=== PATIENT | male | born 1945 | race American Indian/Alaskan Native ===

== ENCOUNTER 2016-10-29 17:10 | Inpatient (IN) | payer MEDICARE ==
[2016-10-29 18:13] LABS: Basophils % (Auto) 1.1 % (0.0-1.8); Eosinophils % (Auto) 1.1 % (0.0-4.3); Hematocrit 43.7 % (35.5-45.6); Hemoglobin 14.3 gm/dl (11.8-15.2); Mean Corpuscular HGB Conc 33 % (32-34); Mean Corpuscular Hemoglobin 28 pg (28-32); Mean Corpuscular Volume 86 fl (84-94); Platelet Count 153 K/mm3 (140-440); Red Blood Count 5.08 M/mm3 (3.65-5.03); Red Cell Distribution Width 16.2 % (13.2-15.2); White Blood Count 6.3 K/mm3 (4.5-11.0)
[2016-10-29 18:36] LABS: Anion Gap 19 mmol/L; Blood Urea Nitrogen 21 mg/dL (9-20); Calcium 9.3 mg/dL (8.4-10.2); Carbon Dioxide 27 mmol/L (22-30); Chloride 104.9 mmol/L (98-107); Glucose 120 mg/dL (75-100); Potassium 3.8 mmol/L (3.6-5.0); Sodium 147 mmol/L (137-145)
[2016-10-29] MEDS ORDERED: LASIX IV ONE (18:42)
[2016-10-29] MEDS ORDERED: DUONEB 0.5 MG-3 MG/3 ML SOLN IH ONE (18:42)
[2016-10-29] MEDS ORDERED: BABY ASPIRIN PO ONE (18:43)
--- NOTE | 2016-10-29 18:45 | Emergency Department Report ---
HPI - General Chief Complaint: Dyspnea/Respdistress Time Seen by Provider: 10/29/16 17:47 - HPI HPI: This is a 71-year-old Afro-K[place] male who presents to the emergency department by EMS from home with complaint of a one-week history of shortness of breath. The patient has a history of CHF, hypertension, remote prostate cancer and pancreatitis. He has a primary care doctor but has not seen them regarding the symptoms. He does not have a stars analytical lead. He is a former smoker. He went to [facility] a few days ago and was advised to double up on his Lasix, which she has been doing without any relief. He has some mild generalized chest discomfort. He denies any fever, nausea, vomiting, back pain. No recent travel or sick contacts at home. ED Past Medical Hx - Past Medical History Previous Medical History?: Yes Hx Hypertension: Yes () Hx Heart Attack/AMI: No Hx Congestive Heart Failure: Yes Hx GERD: Yes Hx of Cancer: Yes (prostate) Hx Arthritis: Yes Hx Psychiatric Treatment: Yes (schizophrenia) Hx HIV: No Additional medical history: pancreatitis - Surgical History Past Surgical History?: Yes Hx Cholecystectomy: Yes (2010) Additional Surgical History: cardiac cath 2014. bladder surgery - Social History Smoking Status: Former Smoker Substance Use Type: None ED Review of Systems ROS: Stated complaint: RHONDA Other details as noted in HPI Comment: All other systems reviewed and negative Constitutional: denies: chills, fever Eyes: denies: eye pain, eye discharge, vision change ENT: denies: ear pain, throat pain Respiratory: cough, shortness of breath Cardiovascular: chest pain. denies: edema Gastrointestinal: denies: abdominal pain, nausea, diarrhea Genitourinary: denies: urgency, dysuria Musculoskeletal: denies: back pain, joint swelling, arthralgia Skin: denies: rash, lesions Neurological: denies: headache, weakness, paresthesias Physical Exam - Physical Exam Vital Signs: Vital Signs 10/29/16 17:36 Temperature 97.5 F L Pulse Rate 121 H Respiratory 28 H Rate Blood Pressure 130/99 O2 Sat by Pulse 95 Oximetry Physical Exam: GENERAL: The patient is well-developed well-nourished. HEENT: Normocephalic. Atraumatic. Extraocular motions are intact. Patient has moist mucous membranes. Pupils equal reactive to light bilaterally. NECK: Supple. Trachea is midline. CHEST/LUNGS: Clear to auscultation. There is some tachypnea but no accessory muscle use. There is no respiratory distress noted. HEART/CARDIOVASCULAR: Regular. There is mild tachycardia. There is no gallop rub or murmur. ABDOMEN: Abdomen is soft, nontender. Patient has normal bowel sounds. There is no abdominal distention. SKIN: Skin is warm and dry. NEURO: The patient is awake, alert, and oriented. The patient is cooperative. The patient has no focal neurologic deficits. The patient has normal speech. MUSCULOSKELETAL: There is no tenderness or deformity. There is no limitation range of motion. There is no evidence of acute injury. ED Course Vital Signs 10/29/16 17:36 Temperature 97.5 F L Pulse Rate 121 H Respiratory 28 H Rate Blood Pressure 130/99 O2 Sat by Pulse 95 Oximetry ED Medical Decision Making - Lab Data Result diagrams: 10/29/16 17:51 10/29/16 17:51 - EKG Data -: EKG Interpreted by Mt EKG shows normal: sinus rhythm, axis (left axis deviation), intervals, QRS complexes (left anterior fascicular block, LVH with mild QRS widening, Q waves to the septal leads), ST-T waves (intermittent T-wave inversions to the lateral leads) Rate: tachycardia (mild at 103 bpm) - EKG Data When compared to previous EKG there are: changes noted (previous EKG from does not show the T-wave inversions in the lateral leads) Interpretation: other (sinus tachycardia, left axis deviation, left anterior fascicular block, LVH, Q waves in the septal leads, T-wave inversions to the lateral leads) - Radiology Data Radiology results: image reviewed interpreted by me: Chest x-ray shows some cardiomegaly and pulmonary vascular congestion. No obvious pneumonia. No pneumothorax. - Medical Decision Making 71-year-old male presents the emergency department with complaint of continued shortness of breath over the past few days to week. He has a history of CHF. Chest x-ray shows some pulmonary vascular congestion. He has coarse breath sounds with some tachypnea and mild tachycardia. D-dimer was negative. First troponin negative. BNP is very elevated concerning for CHF. He was given some Lasix to start diuresis. Aspirin to protect his heart. He'll be admitted to the hospital for further evaluation and has been accepted for admission by the hospitalist, Dr. Schneider. - Differential Diagnosis CHF, ID, PE, pneumonia Critical Care Time: No Critical care attestation.: If time is entered above; I have spent that time in minutes in the direct care of this critically ill patient, excluding procedure time. ED Disposition Clinical Impression: Atypical chest pain Dyspnea Qualifiers: Dyspnea type: shortness of breath Qualified Code(s): R06.02 - Shortness of breath CHF (congestive heart failure) Qualifiers: Congestive heart failure type: unspecified congestive heart failure type Congestive heart failure chronicity: acute on chronic Qualified Code(s): I50.9 - Heart failure, unspecified Disposition: OP ADMITTED IP TO THIS HOSP Is pt being admited?: Yes Condition: Stable Instructions: Chest Pain (ED) Referrals: PRIMARY CARE, [Primary Care Provider] - 3-5 Days Time of Disposition: 20:56
--- NOTE | 2016-10-29 19:45 | XRay Report ---
FINAL REPORT EXAM: XR CHEST ROUTINE 2V HISTORY: Shortness of breath TECHNIQUE: 2 views of the chest. PRIORS: None. FINDINGS: There is moderate cardiomegaly. The pulmonary vascularity appears normal. The lungs are clear. There is no evidence of pleural effusion. The bones and soft tissues are unremarkable. IMPRESSION: Cardiomegaly. No evidence of acute CHF
--- NOTE | 2016-10-29 20:10 | History and Physical Report ---
History of Present Illness Chief complaint: I cant breathe History of present illness: 71 YO Male with HTN, CHF,GERD, CaP, OA, Schizophrenia, Pancreatitis presents to ED for evaluation. Pt states that he has been experiencing shortness of breath for the past week, with worsening symptoms over the past 1 day. Pt acknowledges orthopnea, PND. Pt states that he has increased his lasix dose without relief. Pt denies fever, chills, CP, Palpitations, NVD, Syncope, prolonged travel/ immobility, individual/family history of DVT/PE, productive cough, leg swelling , calf pain, trauma, or recent ill contacts. Past History Past Medical History: arthritis, CAD, GERD, heart failure, hypertension Past Surgical History: cholecystectomy, Other (cath, bladdder) Social history: single. denies: smoking, alcohol abuse, prescription drug abuse Family history: no significant family history, diabetes, hypertension Medications and Allergies Allergies Allergy/AdvReac Type Severity Reaction Status Date / Time Penicillins Allergy Severe Hives Verified 11/21/14 10:42 Home Medications Medication Instructions Recorded Confirmed Last Taken Type ARIPiprazole [Abilify TAB] 20 mg PO DAILY 10/29/16 10/29/16 10/29/16 History Aspirin 81 mg PO QDAY 10/29/16 10/29/16 10/29/16 History Carvedilol [Coreg] 3.125 mg PO BID 10/29/16 10/29/16 10/29/16 History Furosemide [Lasix] 20 mg PO QDAY 10/29/16 10/29/16 10/29/16 History Lisinopril [Zestril] 5 mg PO QDAY 10/29/16 10/29/16 10/29/16 History Review of Systems All systems: negative Cardiovascular: orthopnea, paroxysmal nocturnal dyspnea Respiratory: shortness of breath Exam - Constitutional Vitals: Temp Pulse Resp BP Pulse Ox 97.5 F L 115 H 18 117/91 97 10/29/16 17:36 10/29/16 19:59 10/29/16 19:59 10/29/16 19:00 10/29/16 19:00 General appearance: Present: mild distress, cachectic - EENT Eyes: Present: PERRL ENT: hearing intact, clear oral mucosa - Neck Neck: Present: supple, normal ROM - Respiratory Respiratory effort: normal Respiratory: bilateral: CTA - Cardiovascular Heart Sounds: Present: S1 & S2. Absent: rub, click - Extremities Extremities: pulses symmetrical, No edema Peripheral Pulses: within normal limits - Abdominal General gastrointestinal: Present: soft, non-tender, non-distended, normal bowel sounds Male genitourinary: Present: normal - Integumentary Integumentary: Present: clear, warm, dry - Musculoskeletal Musculoskeletal: gait normal, strength equal bilaterally - Psychiatric Psychiatric: appropriate mood/affect, intact judgment & insight - Neurologic Neurologic: CNII-XII intact, moves all extremities Results - Labs CBC & Chem 7: 10/29/16 17:51 10/29/16 17:51 Labs: Abnormal lab results 10/29/16 10/29/16 Range/Units 17:51 17:51 RBC 5.08 H (3.65-5.03) M/mm3 RDW 16.2 H (13.2-15.2) % [place] % (Auto) 9.6 H (0.0-7.3) % Lymph # 1.0 L (1.2-5.4) K/mm3 Seg Neutrophils % 71.6 H (40.0-70.0) % Sodium 147 H (137-145) mmol/L BUN 21 H (9-20) mg/dL Glucose 120 H (75-100) mg/dL NT-Pro-B Natriuret Pep 86570 H (0-900) pg/mL Assessment and Plan - Patient Problems (1) CHF (congestive heart failure) Current Visit: Yes Status: Acute Qualifiers: Congestive heart failure type: unspecified congestive heart failure type Congestive heart failure chronicity: acute on chronic Qualified Code(s): I50.9 - Heart failure, unspecified Plan to address problem: CHF Protocol: Admit to telemetry, supportive care, fluid restriction, daily weight, monitor uop q shift, diuretics, stephanie inhibitor, b denis. (2) Acute respiratory failure Current Visit: Yes Status: Acute Qualifiers: Respiratory failure complication: hypoxia Qualified Code(s): J96.01 - Acute respiratory failure with hypoxia Plan to address problem: Supplemental oxygen, nebs, aspiration precautions, supplemental oxygen, supportive care, pulmonary toilet, (3) Malnutrition Current Visit: Yes Status: Chronic Plan to address problem: Moderate: encourage oral intake (4) Hypertension Current Visit: No Status: Acute Qualifiers: Hypertension type: H Plan to address problem: Monitor bp q shift, continue current therapy. (5) DVT prophylaxis Current Visit: Yes Status: Acute
[2016-10-29] MEDS ORDERED: MILK OF MAGNESIA PO PRN (20:49)
[2016-10-29] MEDS ORDERED: DUONEB 0.5 MG-3 MG/3 ML SOLN IH PRN (20:49)
[2016-10-29] MEDS ORDERED: DULCOLAX PR PRN (20:49)
[2016-10-29] MEDS ORDERED: TYLENOL PO PRN (20:49)
[2016-10-29] MEDS ORDERED: ZOFRAN IV PRN (20:49)
[2016-10-29] MEDS ORDERED: PROVENTIL IH PRN (21:06)
[2016-10-30] MEDS: LASIX IV SCH ×2 (05:36→17:53)
--- NOTE | 2016-10-30 10:36 | Admit Criteria Form ---
Admission Criteria Documentation: HEART FAILURE: COMMON COMPLICATIONS Clinical Indications for Inpatient Care (Place 'X' for any and all applicable criteria): Ongoing inpatient care may be indicated for heart failure with ANY ONE of the following (1)(2)(3)(4)(5): [ ]I. Ongoing need for care for primary condition requiring frequent therapy adjustments because of changes in cardiac function (eg, drug dosage changes for drugs that are renally metabolized) [ ]II. New-onset heart failure [ ]III. Heart failure with decreased urine output not responsive to attempts to optimize volume status [ ]IV. Acute cardiac ischemia causing or associated with failure [X ]V. Complications of heart failure, including ANY ONE of the following: [ ]a) Pericardial effusion [ ]b) Symptomatic pleural effusion [ ]c) O2 saturation <90% or PO2 < 60 mm Hg (8.0 kPa) on room air or require baseline supplemental O2 [ X]d) Tachypnea [ X]e) Dyspnea [ ]f) Syncope [ ]g) Change in mental status [ ]h) Acute renal insufficiency that is severe (reduction of more than 50% in estimated glomerular filtration rate from baseline) or progressive reduction of more than 25% in estimated glomerular filtration rate from baseline, with creatinine continuing to rise) [ ]i) Hemodynamic instability [ ]j) Anasarca [ ]k) Clinically significant metabolic abnormalities due to heart failure (eg, new-onset metabolic acidosis) Extended stay beyond goal length of stay for primary condition may be needed until ALL of the following are present(1)(3): [ ]a) Stable and effective diuretic regimen established (or patient on stable dialysis regimen if in chronic renal failure) [ ]b) Breathing comfortably at rest [ ]c) Saturation of arterial oxygen greater than 90% or at acceptable baseline [ ]d) Pulmonary edema absent or improved [ ]e) Hemodynamic stability [ ]f) Volume status acceptable on oral medication [ ]g) Peripheral or sacral edema absent or improved [ ]h) Renal function stable and manageable at a lower level of care [ ]i) Complications (eg, pleural effusion) resolved or manageable at a lower level of care [ ]j) Patient or caregiver has received written discharge instructions or educational material addressing activity level, diet, discharge medications, follow-up appointment, weight monitoring, and what to do if symptoms worsen The original [employer] content created by [employer] has been revised. The portions of the content which have been revised are identified through the use of italic text or in bold, and [facility] has neither reviewed nor approved the modified material.All other unmodified content is copyright [facility]. Please see references footnoted in the original [facility] edition 2016 Admission Criteria Met: Yes
--- NOTE | 2016-10-30 15:35 | Progress Note ---
Assessment and Plan Assessment and plan: 71 years old male with CAD, HTN, CHF, admitted for worsening shortness of breath , orthopnea 1. Acute on chronic systolic CHF exacerbation Symptoms of heart failure Chest x-ray with cardiomegaly Will obtain echocardiogram to assess LV function Diuresis started with IV Lasix Add beta denis and RE inhibitor 2. Acute hypoxic respiratory failure Due to CHF exacerbation Diuresing, supplemental oxygen as needed 3. Hypernatremia Mild, monitor closely as he is on IV diuretic 4. CAD On aspirin, BB and ACEI Check lipid profile and consider adding statin 5. HTN Resume Coreg and lisinopril; continue Lasix Monitor BP and adjust regimen as needed 6. Psychiatric disorder Resume Abilify 7. H/o prostate cancer Diagnosed and treated 8 years ago Followed by urology 8. DVT/GI prophylaxis History Interval history: Shortness of breath improved, feeling better Hospitalist Physical - Constitutional Vitals: Temp Pulse Resp BP Pulse Ox 97.8 F 89 16 110/81 99 10/30/16 13:24 10/30/16 13:24 10/30/16 13:24 10/30/16 13:24 10/30/16 13:24 General appearance: Present: no acute distress - EENT Eyes: Present: PERRL, EOM intact. Absent: scleral icterus, conjunctival injection - Neck Neck: Present: supple, normal ROM. Absent: masses or JVD - Respiratory Respiratory effort: normal Respiratory: bilateral: CTA, negative: rhonchi, wheezing - Cardiovascular Rhythm: regular Heart Sounds: Present: S1 & S2. Absent: systolic murmur - Extremities Extremities: no ischemia - Abdominal General gastrointestinal: soft, non-tender, non-distended, normal bowel sounds - Psychiatric Psychiatric: appropriate mood/affect, intact judgment & insight, cooperative - Neurologic Neurologic: CNII-XII intact, no focal deficits Results - Labs CBC & Chem 7: 10/29/16 17:51 10/29/16 17:51 Labs: Laboratory Last Values WBC 6.3 K/mm3 (4.5-11.0) 10/29/16 17:51 RBC 5.08 M/mm3 (3.65-5.03) H 10/29/16 17:51 Hgb 14.3 gm/dl (11.8-15.2) 10/29/16 17:51 Hct 43.7 % (35.5-45.6) 10/29/16 17:51 MCV 86 fl (84-94) 10/29/16 17:51 MCH 28 pg (28-32) 10/29/16 17:51 MCHC 33 % (32-34) 10/29/16 17:51 RDW 16.2 % (13.2-15.2) H 10/29/16 17:51 Plt Count 153 K/mm3 (140-440) 10/29/16 17:51 Lymph % (Auto) 16.6 % (13.4-35.0) 10/29/16 17:51 [place] % (Auto) 9.6 % (0.0-7.3) H 10/29/16 17:51 Eos % (Auto) 1.1 % (0.0-4.3) 10/29/16 17:51 Baso % (Auto) 1.1 % (0.0-1.8) 10/29/16 17:51 Lymph # 1.0 K/mm3 (1.2-5.4) L 10/29/16 17:51 [place] # 0.6 K/mm3 (0.0-0.8) 10/29/16 17:51 Eos # 0.1 K/mm3 (0.0-0.4) 10/29/16 17:51 Baso # 0.1 K/mm3 (0.0-0.1) 10/29/16 17:51 Seg Neutrophils % 71.6 % (40.0-70.0) H 10/29/16 17:51 Seg Neutrophils # 4.5 K/mm3 (1.8-7.7) 10/29/16 17:51 D-Dimer 200.30 ng/mlDDU (0-234) 10/29/16 21:36 Sodium 147 mmol/L (137-145) H 10/29/16 17:51 Potassium 3.8 mmol/L (3.6-5.0) 10/29/16 17:51 Chloride 104.9 mmol/L (98-107) 10/29/16 17:51 Carbon Dioxide 27 mmol/L (22-30) 10/29/16 17:51 Anion Gap 19 mmol/L 10/29/16 17:51 BUN 21 mg/dL (9-20) H 10/29/16 17:51 Creatinine 1.0 mg/dL (0.8-1.5) 10/29/16 17:51 Estimated GFR > 60 ml/min 10/29/16 17:51 BUN/Creatinine Ratio 21.00 % 10/29/16 17:51 Glucose 120 mg/dL (75-100) H 10/29/16 17:51 Calcium 9.3 mg/dL (8.4-10.2) 10/29/16 17:51 Troponin T < 0.010 ng/mL (0.00-0.029) 10/29/16 17:51 NT-Pro-B Natriuret Pep 76198 pg/mL (0-900) H 10/29/16 17:51 - Imaging and Cardiology Chest x-ray: image reviewed (cardiomegaly)
[2016-10-30 20:33] LABS: Bilirubin,Urine NEG (Negative); Blood,Urine NEG (Negative); Ketones,Urine NEG (Negative); Leukocyte Esterase,Urine NEG (Negative); Mucus,Urine FEW /HPF; Nitrite,Urine NEG (Negative); Protein,Urine <15 mg/dL mg/dL (Negative); Urobilinogen,Urine < 2.0 mg/dL (<2.0)
[2016-10-30 20:44] LABS: WBC,Urine < 1.0 /HPF (0.0-6.0)
[2016-10-30] MEDS: COREG PO SCH (21:23)
[2016-10-31] MEDS ORDERED: NACL 0.9% 250ML 250 ML IV ONE (00:52)
[2016-10-31] MEDS: LASIX IV SCH (06:41)
[2016-10-31 06:58] LABS: Anion Gap 16 mmol/L; Blood Urea Nitrogen 20 mg/dL (9-20); Calcium 8.4 mg/dL (8.4-10.2); Carbon Dioxide 28 mmol/L (22-30); Chloride 103.6 mmol/L (98-107); Glucose 89 mg/dL (75-100); Potassium 3.9 mmol/L (3.6-5.0); Sodium 144 mmol/L (137-145)
[2016-10-31] MEDS ORDERED: ARIPIPRAZOLE 20 MG PO SCH (10:00)
[2016-10-31] MEDS: COREG PO SCH ×2 (10:38→22:33)
[2016-10-31] MEDS: ZESTRIL PO SCH (10:40)
[2016-10-31] MEDS: ABILIFY PO SCH (10:50)
--- NOTE | 2016-10-31 17:40 | Progress Note ---
Assessment and Plan Assessment and plan: 71 years old male with CAD, HTN, CHF, admitted for worsening shortness of breath , orthopnea 1. Acute on chronic combined heart failure Chest x-ray with cardiomegaly Echocardiogram showed severely dilated cardiomyopathy with EF 15-20% Started on beta denis, RE inhibitor and diuretic but not given today due to hypotension Will consult cardiology as he needs further cardiac workup and possible AICD/ defibrillator/LifeVest 2. Acute hypoxic respiratory failure Due to CHF exacerbation Diuresing as tolerated, supplemental oxygen 3. Hypernatremia Mild, resolved 4. CAD On aspirin, BB and ACEI Check lipid profile and consider adding statin 5. HTN On coreg, lisinopril, lasix for heart failure, but now on hold due to hypotension 6. Psychiatric disorder Continue Abilify 7. H/o prostate cancer Diagnosed and treated 8 years ago Followed by urology 8. DVT prophylaxis Lovenox History Interval history: no SOB at rest, doing well, no complaints Hospitalist Physical - Constitutional Vitals: Temp Pulse Resp BP Pulse Ox 97.9 F 89 16 84/64 99 10/31/16 16:48 10/31/16 16:48 10/31/16 16:48 10/31/16 16:48 10/31/16 16:48 General appearance: Present: no acute distress - EENT Eyes: Present: PERRL, EOM intact. Absent: scleral icterus, conjunctival injection - Neck Neck: Present: supple, normal ROM. Absent: masses or JVD - Respiratory Respiratory effort: normal Respiratory: bilateral: CTA, negative: rhonchi, wheezing - Cardiovascular Rhythm: regular Heart Sounds: Present: S1 & S2, systolic murmur - Extremities Extremities: no ischemia - Abdominal General gastrointestinal: soft, non-tender, non-distended, normal bowel sounds - Integumentary Integumentary: Present: warm, dry. Absent: jaundice, rash - Psychiatric Psychiatric: cooperative - Neurologic Neurologic: CNII-XII intact, no focal deficits Results - Labs CBC & Chem 7: 10/29/16 17:51 10/31/16 05:46 Labs: Laboratory Last Values WBC 6.3 K/mm3 (4.5-11.0) 10/29/16 17:51 RBC 5.08 M/mm3 (3.65-5.03) H 10/29/16 17:51 Hgb 14.3 gm/dl (11.8-15.2) 10/29/16 17:51 Hct 43.7 % (35.5-45.6) 10/29/16 17:51 MCV 86 fl (84-94) 10/29/16 17:51 MCH 28 pg (28-32) 10/29/16 17:51 MCHC 33 % (32-34) 10/29/16 17:51 RDW 16.2 % (13.2-15.2) H 10/29/16 17:51 Plt Count 153 K/mm3 (140-440) 10/29/16 17:51 Lymph % (Auto) 16.6 % (13.4-35.0) 10/29/16 17:51 [place] % (Auto) 9.6 % (0.0-7.3) H 10/29/16 17:51 Eos % (Auto) 1.1 % (0.0-4.3) 10/29/16 17:51 Baso % (Auto) 1.1 % (0.0-1.8) 10/29/16 17:51 Lymph # 1.0 K/mm3 (1.2-5.4) L 10/29/16 17:51 [place] # 0.6 K/mm3 (0.0-0.8) 10/29/16 17:51 Eos # 0.1 K/mm3 (0.0-0.4) 10/29/16 17:51 Baso # 0.1 K/mm3 (0.0-0.1) 10/29/16 17:51 Seg Neutrophils % 71.6 % (40.0-70.0) H 10/29/16 17:51 Seg Neutrophils # 4.5 K/mm3 (1.8-7.7) 10/29/16 17:51 D-Dimer 200.30 ng/mlDDU (0-234) 10/29/16 21:36 Sodium 144 mmol/L (137-145) 10/31/16 05:46 Potassium 3.9 mmol/L (3.6-5.0) 10/31/16 05:46 Chloride 103.6 mmol/L (98-107) 10/31/16 05:46 Carbon Dioxide 28 mmol/L (22-30) 10/31/16 05:46 Anion Gap 16 mmol/L 10/31/16 05:46 BUN 20 mg/dL (9-20) 10/31/16 05:46 Creatinine 1.0 mg/dL (0.8-1.5) 10/31/16 05:46 Estimated GFR > 60 ml/min 10/31/16 05:46 BUN/Creatinine Ratio 20.00 % 10/31/16 05:46 Glucose 89 mg/dL (75-100) 10/31/16 05:46 Calcium 8.4 mg/dL (8.4-10.2) 10/31/16 05:46 Troponin T < 0.010 ng/mL (0.00-0.029) 10/29/16 17:51 NT-Pro-B Natriuret Pep 82661 pg/mL (0-900) H 10/29/16 17:51 Urine Color Yellow (Yellow) 10/30/16 20:18 Urine Turbidity Clear (Clear) 10/30/16 20:18 Urine pH 6.0 (5.0-7.0) 10/30/16 20:18 Ur Specific [place] 1.010 (1.003-1.030) 10/30/16 20:18 Urine Protein <15 mg/dl mg/dL (Negative) 10/30/16 20:18 Urine Glucose (UA) Neg mg/dL (Negative) 10/30/16 20:18 Urine Ketones Neg mg/dL (Negative) 10/30/16 20:18 Urine Blood Neg (Negative) 10/30/16 20:18 Urine Nitrite Neg (Negative) 10/30/16 20:18 Urine Bilirubin Neg (Negative) 10/30/16 20:18 Urine Urobilinogen < 2.0 mg/dL (<2.0) 10/30/16 20:18 Ur Leukocyte Esterase Neg (Negative) 10/30/16 20:18 Urine WBC (Auto) < 1.0 /HPF (0.0-6.0) 10/30/16 20:18 Urine RBC (Auto) 3.0 /HPF (0.0-6.0) 10/30/16 20:18 Urine Mucus Few /HPF 10/30/16 20:18
[2016-10-31] MEDS: LOVENOX SUB-Q SCH (22:32)
[2016-11-01] MEDS: COREG PO SCH ×2 (09:40→22:35)
[2016-11-01] MEDS: ZESTRIL PO SCH (09:41)
[2016-11-01] MEDS: ABILIFY PO SCH (09:47)
--- NOTE | 2016-11-01 11:07 | Progress Note ---
Assessment and Plan Assessment and plan: 71 years old male with CAD, HTN, CHF, admitted for worsening shortness of breath , orthopnea 1. Acute on chronic combined heart failure Chest x-ray with cardiomegaly Echocardiogram showed severely dilated cardiomyopathy with EF 15-20% Started on beta denis, RE inhibitor and diuretic but not given due to hypotension Cardiology consulted as he needs further cardiac workup and possible AICD/ defibrillator/LifeVest 2. Acute hypoxic respiratory failure Due to CHF exacerbation Diuresing as tolerated, supplemental oxygen 3. Hypernatremia Mild, resolved 4. CAD On aspirin, BB and ACEI Lipid profile checked and showed LDL<70 and HDL 39 5. HTN On coreg, lisinopril, lasix for heart failure, but now on hold due to bordeline low BP 6. Psychiatric disorder Continue Abilify 7. H/o prostate cancer Diagnosed and treated 8 years ago Followed by urology 8. DVT prophylaxis Lovenox History Interval history: no SOB at rest, doing well, no complaints; updated about ECHO results Hospitalist Physical - Constitutional Vitals: Temp Pulse Resp BP Pulse Ox 97.6 F 100 H 22 105/98 98 11/01/16 08:56 11/01/16 09:41 11/01/16 08:56 11/01/16 09:41 11/01/16 10:00 General appearance: Present: no acute distress - EENT Eyes: Present: PERRL, EOM intact. Absent: scleral icterus, conjunctival injection - Neck Neck: Present: supple, normal ROM. Absent: masses or JVD - Respiratory Respiratory effort: normal Respiratory: bilateral: CTA, negative: rhonchi, wheezing - Cardiovascular Rhythm: regular Heart Sounds: Present: S1 & S2. Absent: systolic murmur - Extremities Extremities: no ischemia - Abdominal General gastrointestinal: soft, non-tender, non-distended, normal bowel sounds - Psychiatric Psychiatric: cooperative - Neurologic Neurologic: CNII-XII intact, no focal deficits Results - Labs CBC & Chem 7: 10/29/16 17:51 10/31/16 05:46 Labs: Laboratory Last Values WBC 6.3 K/mm3 (4.5-11.0) 10/29/16 17:51 RBC 5.08 M/mm3 (3.65-5.03) H 10/29/16 17:51 Hgb 14.3 gm/dl (11.8-15.2) 10/29/16 17:51 Hct 43.7 % (35.5-45.6) 10/29/16 17:51 MCV 86 fl (84-94) 10/29/16 17:51 MCH 28 pg (28-32) 10/29/16 17:51 MCHC 33 % (32-34) 10/29/16 17:51 RDW 16.2 % (13.2-15.2) H 10/29/16 17:51 Plt Count 153 K/mm3 (140-440) 10/29/16 17:51 Lymph % (Auto) 16.6 % (13.4-35.0) 10/29/16 17:51 [place] % (Auto) 9.6 % (0.0-7.3) H 10/29/16 17:51 Eos % (Auto) 1.1 % (0.0-4.3) 10/29/16 17:51 Baso % (Auto) 1.1 % (0.0-1.8) 10/29/16 17:51 Lymph # 1.0 K/mm3 (1.2-5.4) L 10/29/16 17:51 [place] # 0.6 K/mm3 (0.0-0.8) 10/29/16 17:51 Eos # 0.1 K/mm3 (0.0-0.4) 10/29/16 17:51 Baso # 0.1 K/mm3 (0.0-0.1) 10/29/16 17:51 Seg Neutrophils % 71.6 % (40.0-70.0) H 10/29/16 17:51 Seg Neutrophils # 4.5 K/mm3 (1.8-7.7) 10/29/16 17:51 D-Dimer 200.30 ng/mlDDU (0-234) 10/29/16 21:36 Sodium 144 mmol/L (137-145) 10/31/16 05:46 Potassium 3.9 mmol/L (3.6-5.0) 10/31/16 05:46 Chloride 103.6 mmol/L (98-107) 10/31/16 05:46 Carbon Dioxide 28 mmol/L (22-30) 10/31/16 05:46 Anion Gap 16 mmol/L 10/31/16 05:46 BUN 20 mg/dL (9-20) 10/31/16 05:46 Creatinine 1.0 mg/dL (0.8-1.5) 10/31/16 05:46 Estimated GFR > 60 ml/min 10/31/16 05:46 BUN/Creatinine Ratio 20.00 % 10/31/16 05:46 Glucose 89 mg/dL (75-100) 10/31/16 05:46 POC Glucose 85 (70-105) 11/01/16 07:39 Calcium 8.4 mg/dL (8.4-10.2) 10/31/16 05:46 Troponin T < 0.010 ng/mL (0.00-0.029) 10/29/16 17:51 NT-Pro-B Natriuret Pep 47632 pg/mL (0-900) H 10/29/16 17:51 Triglycerides 97 mg/dL (2-149) 11/01/16 05:57 Cholesterol 123 mg/dL (50-199) 11/01/16 05:57 LDL Cholesterol Direct 65 mg/dL (50-130) 11/01/16 05:57 HDL Cholesterol 39 mg/dL (40-59) L 11/01/16 05:57 Cholesterol/HDL Ratio 3.15 % 11/01/16 05:57 Urine Color Yellow (Yellow) 10/30/16 20:18 Urine Turbidity Clear (Clear) 10/30/16 20:18 Urine pH 6.0 (5.0-7.0) 10/30/16 20:18 Ur Specific [place] 1.010 (1.003-1.030) 10/30/16 20:18 Urine Protein <15 mg/dl mg/dL (Negative) 10/30/16 20:18 Urine Glucose (UA) Neg mg/dL (Negative) 10/30/16 20:18 Urine Ketones Neg mg/dL (Negative) 10/30/16 20:18 Urine Blood Neg (Negative) 10/30/16 20:18 Urine Nitrite Neg (Negative) 10/30/16 20:18 Urine Bilirubin Neg (Negative) 10/30/16 20:18 Urine Urobilinogen < 2.0 mg/dL (<2.0) 10/30/16 20:18 Ur Leukocyte Esterase Neg (Negative) 10/30/16 20:18 Urine WBC (Auto) < 1.0 /HPF (0.0-6.0) 10/30/16 20:18 Urine RBC (Auto) 3.0 /HPF (0.0-6.0) 10/30/16 20:18 Urine Mucus Few /HPF 10/30/16 20:18
[2016-11-01] MEDS ORDERED: NACL 0.9% 500 ML 500 ML IV SCH (12:00)
[2016-11-01] MEDS: LASIX IV SCH (18:08)
[2016-11-01] MEDS: LOVENOX SUB-Q SCH (22:34)
--- NOTE | 2016-11-02 02:59 | Consultation ---
CARDIOLOGY CONSULTATION REASON FOR CONSULTATION: Evaluation of congestive heart failure. HISTORY OF PRESENTING ILLNESS: The patient is a 71-year-old gentleman who used to live here, but went to [place] for few years and came back. His children live here. He is having shortness of breath at rest, orthopneic with minimal exertion, was admitted for further evaluation who was found to be in left ventricular heart failure, subsequently an echocardiogram was performed, which showed ejection fraction to be markedly impaired in the range of 15%-20%, hence the consultation. The patient's past medical history significant for, patient was told in [place] 7 or 8 years ago, he has weakened heart. He might have had heart catheterization done. Subsequently, he had heart catheterization done at this hospital on 11/20/2014 at which time he was noted to have no significant coronary artery disease, angiographically normal coronary arteries except for delayed diet ____ through the left anterior descending artery. His ejection fraction was felt to be 30% and it was felt that the patient has dilated non ischemic cardiomyopathy. At that time, he did not have any follow up. The patient gives history of longstanding essential hypertension. Other history included patient also tells me that he was hospitalized at [facility] few months ago, was told dilated cardiomyopathy and was subsequently seen by ____ however, his symptoms increased and came to the Emergency Room. He was started on beta blockers and RE inhibitors and difficult to give these medications because of low blood pressure. EKG showed sinus rhythm, left anterior fascicular block with sinus tachycardia initially and also episodes of non-sustained VT ____ beats in a row were noted. EKG done at the time of admission showed sinus tachycardia at the rate of 110 minutes per minute. Left anterior fascicular block and possible anterior infarct noted. His other diagnoses included prostate cancer, diagnosed 8 years ago. Patient's other past medical history in addition to heart failure and hypertension included arthritis and gastroesophageal reflux disease. The patient has history of cholecystectomy. No history of smoking or alcohol use or drug use. The patient is second time, 5 children, 2 twins. ALLERGIES: PENICILLIN. MEDICATIONS AT HOME INCLUDED: Carvedilol, furosemide, lisinopril, and aspirin. REVIEW OF SYSTEMS: As mentioned above his main compliant is not able to breath, no chest pain. No palpitations or dizziness or syncope. No fever or chills. He was told he has pneumonia few months ago, taking his medications regularly. History of schizophrenia of longstanding, presently on Abilify, history of prostate cancer 8 years ago. No change in the bowel habits. No urinary symptoms. No abdominal pains, no fever or chills, no history of pulmonary emboli or DVT. No history of strokes or seizures. PHYSICAL EXAMINATION: GENERAL: The patient appears to be comfortable, well-developed, well-nourished. Conjunctivae pink, Sclerae anicteric. NECK: Supple. No JVD. HEART: Regular, probable S4 and S3. LUNGS: Clear. ABDOMEN: Benign. EXTREMITIES: Without edema. NEUROLOGIC: Alert and oriented x3. IMAGING STUDIES: Chest x-ray done at the time of admission showed moderate cardiomegaly, pulmonary, vascularity appears normal. Lungs are clear. LABORATORY DATA: Other laboratory date showed triglycerides of 97, cholesterol of 123, LDL direct 65, HDL of 39, hemoglobin of 14 g per deciliter, potassium of 3.8, BUN of 16, creatinine of 1.1. d-dimer was 200, NT-proBNP was 13,195, normal being up to 900 pg/mL. FINAL IMPRESSION: Acute on chronic systolic heart failure, presently getting better with diuretics. Difficult to tolerate the medications because of low blood pressure. The patient does have non-sustained VT. Discussed with Dr. Montilla. Consideration will be given for LiveVest. I spoke to LiveVest sales representative door to door, who is going to evaluate the patient. Agree with present management. 2. Dilated non-ischemic cardiomyopathy with cardiac catheterization done in 11/2014, not showing any significant coronary disease. 3. Hypertension. 4. Chronic schizophrenia. 5. History of prostate cancer. At this time, appears to be reasonably stable, ____ present management. Thank you very much Dr. Montilla for letting us participate in your patient's care. JOB# [id number] HUI/EVERT[place]
[2016-11-02] MEDS: LASIX IV SCH ×2 (07:35→07:36)
[2016-11-02] MEDS: COREG PO SCH ×2 (09:26→21:31)
[2016-11-02] MEDS: ZESTRIL PO SCH (09:26)
[2016-11-02] MEDS: ABILIFY PO SCH (09:26)
--- NOTE | 2016-11-02 10:30 | Progress Note ---
Assessment and Plan Assessment: Acute on chronic systolic heart failure - nearing/at euvolemia. Dilated NICMP - EF 15-20%; [facility] 11/2014 revealed angiographically normal coronaries HTN H/o schizophrenia H/o prostate CA NSVT Plan: Convert IV lasix to PO, 20mg daily. Cont coreg and lisinopril. Titrate as tolerated. LifeVest ordered. Currently stable cardiac status. Following receipt of LifeVest, pt may discharge home from cardiology standpoint. Follow up in our [place] office with Tavia Garner NP, on 11/10/2016 @ 9:30AM. Follow up in our [place] office for EP consultation/AICD evaluation with Dr. Peraza on 11/18/2016 @ 3:30PM. The patient has been seen in conjunction with Dr. Wright who agrees with the assessment and plan of care. Subjective Date of service: 11/02/16 Principal diagnosis: Acute on chronic SHF; NICMP Interval history: Pt resting comfortably at bedside, on RA, no complaints. States he is ready to discharge home today, VSS. Awaiting LifeVest placement. Objective Last Vital Signs Temp 97.5 F L 11/02/16 09:40 Pulse 110 H 11/02/16 09:40 Resp 18 11/02/16 09:40 BP 117/93 11/02/16 09:40 Pulse Ox 100 11/02/16 09:40 - Physical Examination General: Appears Well, No Apparent Distress HEENT: Positive: PERRL Neck: Positive: neck supple, trachea midline Cardiac: Positive: Reg Rate and Rhythm, S1/S2 Lungs: Positive: Normal Exam, clear to auscultation, Normal Breath Sounds Neuro: Positive: Grossly Intact, Cranial Nerve 2-12 Intact Abdomen: Positive: Unremarkable, Soft, Active Bowel Sounds. Negative: Tender Skin: Positive: Clear. Negative: Rash, Wound Musculoskeletal: No Fluid Collection, No Pain, Normal Range of Motion Extremities: Present: upper extr. pulses, lower extr. pulses. Absent: edema - Imaging and Cardiology EKG: report reviewed, image reviewed Echo: report reviewed Cardiac cath: report reviewed - Telemetry EKG Rhythm: Sinus Rhythm - EKG Sinus rhythms and dysrhythmias: sinus rhythm
--- NOTE | 2016-11-02 19:32 | Progress Note ---
Assessment and Plan Assessment and plan: 71 years old male with CAD, HTN, CHF, admitted for worsening shortness of breath , orthopnea 1. Acute on chronic combined heart failure Chest x-ray with cardiomegaly Echocardiogram showed severely dilated cardiomyopathy with EF 15-20% Started on beta denis, RE inhibitor and diuretic Cardiology consulted - evaluated for LifeVest; scheduled for outpatient EP consultation/AICD evaluation (Dr. Peraza 11/18/16 at 3:30 PM) 2. Acute hypoxic respiratory failure Due to CHF exacerbation Diuresing as tolerated, supplemental oxygen Improved 3. Hypernatremia Mild, resolved 4. CAD On aspirin, BB and ACEI Lipid profile checked and showed LDL<70 and HDL 39 5. HTN On coreg, lisinopril, lasix (for heart failure) 6. Psychiatric disorder Continue Abilify 7. H/o prostate cancer Diagnosed and treated 8 years ago Followed by urology 8. DVT prophylaxis Lovenox History Interval history: no SOB at rest, doing well, no complaints; eval for lifevest Hospitalist Physical - Constitutional Vitals: Temp Pulse Resp BP Pulse Ox 97.6 F 114 H 18 142/107 99 11/02/16 18:01 11/02/16 18:01 11/02/16 18:01 11/02/16 18:01 11/02/16 18:01 General appearance: Present: no acute distress - EENT Eyes: Present: PERRL, EOM intact. Absent: scleral icterus, conjunctival injection - Neck Neck: Present: supple, normal ROM. Absent: masses or JVD - Respiratory Respiratory effort: normal Respiratory: bilateral: CTA, negative: rhonchi, wheezing - Cardiovascular Rhythm: regular Heart Sounds: Present: S1 & S2. Absent: systolic murmur - Extremities Extremities: no ischemia - Abdominal General gastrointestinal: soft, non-tender, non-distended, normal bowel sounds - Integumentary Integumentary: Present: warm, dry. Absent: jaundice, rash - Psychiatric Psychiatric: cooperative - Neurologic Neurologic: CNII-XII intact, no focal deficits Results - Labs CBC & Chem 7: 10/29/16 17:51 10/31/16 05:46 Labs: Laboratory Last Values WBC 6.3 K/mm3 (4.5-11.0) 10/29/16 17:51 RBC 5.08 M/mm3 (3.65-5.03) H 10/29/16 17:51 Hgb 14.3 gm/dl (11.8-15.2) 10/29/16 17:51 Hct 43.7 % (35.5-45.6) 10/29/16 17:51 MCV 86 fl (84-94) 10/29/16 17:51 MCH 28 pg (28-32) 10/29/16 17:51 MCHC 33 % (32-34) 10/29/16 17:51 RDW 16.2 % (13.2-15.2) H 10/29/16 17:51 Plt Count 153 K/mm3 (140-440) 10/29/16 17:51 Lymph % (Auto) 16.6 % (13.4-35.0) 10/29/16 17:51 [place] % (Auto) 9.6 % (0.0-7.3) H 10/29/16 17:51 Eos % (Auto) 1.1 % (0.0-4.3) 10/29/16 17:51 Baso % (Auto) 1.1 % (0.0-1.8) 10/29/16 17:51 Lymph # 1.0 K/mm3 (1.2-5.4) L 10/29/16 17:51 [place] # 0.6 K/mm3 (0.0-0.8) 10/29/16 17:51 Eos # 0.1 K/mm3 (0.0-0.4) 10/29/16 17:51 Baso # 0.1 K/mm3 (0.0-0.1) 10/29/16 17:51 Seg Neutrophils % 71.6 % (40.0-70.0) H 10/29/16 17:51 Seg Neutrophils # 4.5 K/mm3 (1.8-7.7) 10/29/16 17:51 D-Dimer 200.30 ng/mlDDU (0-234) 10/29/16 21:36 Sodium 144 mmol/L (137-145) 10/31/16 05:46 Potassium 3.9 mmol/L (3.6-5.0) 10/31/16 05:46 Chloride 103.6 mmol/L (98-107) 10/31/16 05:46 Carbon Dioxide 28 mmol/L (22-30) 10/31/16 05:46 Anion Gap 16 mmol/L 10/31/16 05:46 BUN 20 mg/dL (9-20) 10/31/16 05:46 Creatinine 1.0 mg/dL (0.8-1.5) 10/31/16 05:46 Estimated GFR > 60 ml/min 10/31/16 05:46 BUN/Creatinine Ratio 20.00 % 10/31/16 05:46 Glucose 89 mg/dL (75-100) 10/31/16 05:46 POC Glucose 85 (70-105) 11/01/16 07:39 Calcium 8.4 mg/dL (8.4-10.2) 10/31/16 05:46 Troponin T < 0.010 ng/mL (0.00-0.029) 10/29/16 17:51 NT-Pro-B Natriuret Pep 79996 pg/mL (0-900) H 10/29/16 17:51 Triglycerides 97 mg/dL (2-149) 11/01/16 05:57 Cholesterol 123 mg/dL (50-199) 11/01/16 05:57 LDL Cholesterol Direct 65 mg/dL (50-130) 11/01/16 05:57 HDL Cholesterol 39 mg/dL (40-59) L 11/01/16 05:57 Cholesterol/HDL Ratio 3.15 % 11/01/16 05:57 Urine Color Yellow (Yellow) 10/30/16 20:18 Urine Turbidity Clear (Clear) 10/30/16 20:18 Urine pH 6.0 (5.0-7.0) 10/30/16 20:18 Ur Specific [place] 1.010 (1.003-1.030) 10/30/16 20:18 Urine Protein <15 mg/dl mg/dL (Negative) 10/30/16 20:18 Urine Glucose (UA) Neg mg/dL (Negative) 10/30/16 20:18 Urine Ketones Neg mg/dL (Negative) 10/30/16 20:18 Urine Blood Neg (Negative) 10/30/16 20:18 Urine Nitrite Neg (Negative) 10/30/16 20:18 Urine Bilirubin Neg (Negative) 10/30/16 20:18 Urine Urobilinogen < 2.0 mg/dL (<2.0) 10/30/16 20:18 Ur Leukocyte Esterase Neg (Negative) 10/30/16 20:18 Urine WBC (Auto) < 1.0 /HPF (0.0-6.0) 10/30/16 20:18 Urine RBC (Auto) 3.0 /HPF (0.0-6.0) 10/30/16 20:18 Urine Mucus Few /HPF 10/30/16 20:18
[2016-11-02] MEDS: LOVENOX SUB-Q SCH (21:32)
[2016-11-03] MEDS ORDERED: LASIX PO SCH (10:00)
[2016-11-03] MEDS: COREG PO SCH (10:47)
[2016-11-03] MEDS: ABILIFY PO SCH (10:49)
[2016-11-03] MEDS: ZESTRIL PO SCH (10:49)
--- NOTE | 2016-11-03 15:54 | Discharge Summary ---
Providers - Providers Date of Admission: 10/29/16 20:49 Date of discharge: 11/03/16 Attending physician: RICH JEREZ 10/31/16 17:34 Consult to Physician [CONS] Routine Consulting Provider: SILVIA LYLES Reason For Exam: dilat cardiomyopathy Place consult to:: Dr. Lyles Notified:: a service Phone number called:: [phone] Was contact made?: Yes If yes, spoke with:: kennedi Time called:: 18:11 Primary care physician: SHARON NEWMAN Hospitalization Reason for admission: worsening SOB Condition: Stable Pertinent studies: CXR ECHO Procedures: Life Vest placement Hospital course: Patient is a 71 years old -[place] male with CAD, HTN, CHF, admitted for worsening shortness of breath and orthopnea. Found to have acute hypoxic respiratory failure secondary to acute exacerbation of combined heart failure, ECHO showing severely dilated cardiomyopathy with EF 15-20%. Started on beta denis, RE inhibitor and diuretic unable to take them due to hypotension. Cardiology consulted and he will undergo LifeVest placement. He will follow with cardiology for EP consultation/AICD evaluation. Medications should be titrated up as tolerated. Discharge diagnosis: 1. Acute on chronic combined heart failure 2. Acute hypoxic respiratory failure 3. Hypernatremia 4. CAD 5. HTN/hypotension 6. Psychiatric disorder 7. H/o prostate cancer Disposition: DISCHARGED TO HOME OR SELFCARE Time spent for discharge: 35 min Core Measure Documentation - Palliative Care Palliative Care/ Comfort Measures: Not Applicable - Core Measures Any of the following diagnoses?: heart failure - Heart Failure Discharge Requirements RE/ARB for LVSD if EF <40%: Yes Beta denis at discharge: Yes Exam - Physical Exam Narrative exam: Patient seen and examined: - Constitutional Vitals: Temp Pulse Resp BP Pulse Ox 97.5 F L 103 H 18 121/84 95 11/03/16 13:16 11/03/16 13:16 11/03/16 13:16 11/03/16 13:16 11/03/16 13:16 General appearance: Present: no acute distress - EENT Eyes: Present: PERRL, EOM intact. Absent: scleral icterus, conjunctival injection - Neck Neck: Present: supple, normal ROM. Absent: masses or JVD - Respiratory Respiratory effort: normal Respiratory: bilateral: CTA, negative: rhonchi, wheezing - Cardiovascular Rhythm: regular Heart Sounds: Present: S1 & S2. Absent: systolic murmur - Extremities Extremities: no ischemia - Abdominal General gastrointestinal: Present: soft, non-tender, non-distended, normal bowel sounds - Integumentary Integumentary: Present: warm, dry. Absent: jaundice, rash - Psychiatric Psychiatric: appropriate mood/affect, cooperative - Neurologic Neurologic: CNII-XII intact, no focal deficits Plan Activity: advance as tolerated Diet: low cholesterol, low salt Additional Instructions: Follow-up with cardiology as already scheduled (with aTvia Garner on 11/10/2016 at 9:[address] Liriano on 11/18/2016 at 3:30 PM) Follow up with: PRIMARY CAREMD [Referring] - 3-5 Days STARLA LIRIANO MD [Staff Physician] - 11/18/16 3:30 pm Prescriptions: ARIPiprazole [Abilify TAB] 20 mg PO DAILY #30 tablet Aspirin 81 mg PO QDAY #30 tab.chew Carvedilol [Coreg] 3.125 mg PO BID #60 tablet Furosemide [Lasix TAB] 20 mg PO QDAY #20 tablet Lisinopril [Zestril TAB] 2.5 mg PO QDAY #30 tab Pending Studies pending receipt of LifeVest
[2016-11-03 17:33] VITALS: BP 118/85
== END 2016-11-03 20:12 | disposition home health service (06) | DRG 291 ==
LOC: ED 17:10 → 4A 20:49
PROVIDERS: ADMIT Internal Medicine; ATTEND Internal Medicine
DX: I11.0 Hypertensive heart disease with heart failure (principal); J96.01 Acute respiratory failure with hypoxia; E87.0 Hyperosmolality and hypernatremia; I47.2 Ventricular tachycardia; E44.0 Moderate protein-calorie malnutrition; I25.10 Atherosclerotic heart disease of native coronary artery without angina pectoris; I50.43 Acute on chronic combined systolic (congestive) and diastolic (congestive) heart failure; I42.0 Dilated cardiomyopathy; F99 Mental disorder, not otherwise specified; K21.9 Gastro-esophageal reflux disease without esophagitis; M19.90 Unspecified osteoarthritis, unspecified site; F20.9 Schizophrenia, unspecified; Z85.46 Personal history of malignant neoplasm of prostate; Z90.49 Acquired absence of other specified parts of digestive tract; Z88.0 Allergy status to penicillin; Z68.24 Body mass index [BMI] 24.0-24.9, adult
CPT/HCPCS: 36415; 71020; 80048; 80061; 81001; 82962; 83880; 84484; 85025; 85379; 93005; 93010; 93306; 94640; 94760; 96374; J1650; J1940; J7040; J7050

== ENCOUNTER 2017-02-16 10:58 | Inpatient (IN) | payer MEDICARE ==
[2017-02-16] MEDS ORDERED: NITRO-BID 2% TP ONE (12:02)
[2017-02-16] MEDS ORDERED: NACL 0.9% 1000 ML 1,000 ML IV ONE (12:02)
[2017-02-16] MEDS ORDERED: LASIX IV ONE (12:02)
[2017-02-16 12:15] LABS: Basophils % (Auto) 0.7 % (0.0-1.8); Eosinophils % (Auto) 0.3 % (0.0-4.3); Mean Corpuscular HGB Conc 32 % (32-34); Mean Corpuscular Hemoglobin 28 pg (28-32); Mean Corpuscular Volume 89 fl (84-94); Platelet Count 121 K/mm3 (140-440); Red Blood Count 5.31 M/mm3 (3.65-5.03); Red Cell Distribution Width 15.4 % (13.2-15.2); White Blood Count 6.6 K/mm3 (4.5-11.0)
[2017-02-16 12:19] LABS: Anion Gap 17 mmol/L; BUN/Creatinine Ratio 18.33; Blood Urea Nitrogen 22 mg/dL (9-20); Calcium 8.5 mg/dL (8.4-10.2); Carbon Dioxide 27 mmol/L (22-30); Chloride 105.9 mmol/L (98-107); Glucose 92 mg/dL (75-100); Sodium 146 mmol/L (137-145)
--- NOTE | 2017-02-16 12:28 | XRay Report ---
PORTABLE CHEST INDICATION: Shortness of breath. COMPARISON: 10/29/2016 FINDINGS: Portable, frontal chest radiograph demonstrates stable cardiomediastinal silhouette/mild cardiomegaly. Left retrocardiac opacity though now suspected with obscured left hemidiaphragm. Clear remainder lungs. No CHF or right pleural effusion. EKG leads. Stable thoracic scoliosis. CONCLUSION: New left lower lung capacity/pneumonia not excluded, as described. Please also correlate clinically and with dedicated PA and lateral chest radiographs, if obtainable. Thank you for the opportunity to participate in this patient's care.
--- NOTE | 2017-02-16 12:48 | Emergency Department Report ---
ED Chest Pain HPI - General Chief Complaint: Chest Pain Stated Complaint: RHONDA Time Seen by Provider: 02/16/17 11:50 Source: patient, EMS Mode of arrival: Stretcher Limitations: No Limitations - History of Present Illness MD Complaint: chest pain -: Gradual Onset: during rest, during exertion, after eating Pain Location: substernal Pain Radiation: none Severity: mild Quality: tightness, aching Consistency: now resolved Improves With: nothing Worsens With: nothing re: nausea. denies: vomting, diaphoresis - Related Data On Oral Contraceptives: No Previous Rx's Medication Instructions Recorded Last Taken Type ARIPiprazole [Abilify TAB] 20 mg PO DAILY #30 tablet 11/03/16 Unknown Rx Aspirin 81 mg PO QDAY #30 tab.chew 11/03/16 Unknown Rx Carvedilol [Coreg] 3.125 mg PO BID #60 tablet 11/03/16 Unknown Rx Furosemide [Lasix TAB] 20 mg PO QDAY #20 tablet 11/03/16 Unknown Rx Lisinopril [Zestril TAB] 2.5 mg PO QDAY #30 tab 11/03/16 Unknown Rx Allergies Allergy/AdvReac Type Severity Reaction Status Date / Time Penicillins Allergy Severe Hives Verified 11/21/14 10:42 Heart Score - HEART Score History: Moderately suspicious EKG: Non-specific Age: > 65 Risk factors: 1-2 risk factors Troponin: < normal limit HEART Score: 5 ED Review of Systems ROS: Stated complaint: RHONDA Other details as noted in HPI Comment: All other systems reviewed and negative ED Past Medical Hx - Past Medical History Hx Hypertension: Yes () Hx Heart Attack/AMI: No Hx Congestive Heart Failure: Yes Hx GERD: Yes Hx Arthritis: Yes Hx Psychiatric Treatment: Yes (schizophrenia) Hx HIV: No Additional medical history: pancreatitis - Surgical History Hx Cholecystectomy: Yes (2010) Additional Surgical History: cardiac cath 2014. bladder surgery - Social History Smoking Status: Never Smoker Substance Use Type: None - Medications Home Medications: Home Medications Medication Instructions Recorded Confirmed Last Taken Type ARIPiprazole [Abilify TAB] 20 mg PO DAILY #30 tablet 11/03/16 Unknown Rx Aspirin 81 mg PO QDAY #30 tab.chew 11/03/16 Unknown Rx Carvedilol [Coreg] 3.125 mg PO BID #60 tablet 11/03/16 Unknown Rx Furosemide [Lasix TAB] 20 mg PO QDAY #20 tablet 11/03/16 Unknown Rx Lisinopril [Zestril TAB] 2.5 mg PO QDAY #30 tab 11/03/16 Unknown Rx ED Physical Exam - General Limitations: No Limitations General appearance: alert, in no apparent distress - Head Head exam: Present: atraumatic, normocephalic - Eye Eye exam: Present: normal appearance - ENT ENT exam: Present: mucous membranes moist - Neck Neck exam: Present: normal inspection - Respiratory Respiratory exam: Present: respiratory distress, rales, rhonchi, decreased breath sounds - Cardiovascular Cardiovascular Exam: Present: regular rate, normal rhythm. Absent: systolic murmur, diastolic murmur, rubs, gallop - GI/Abdominal GI/Abdominal exam: Present: soft, normal bowel sounds - Rectal Rectal exam: Present: deferred - Extremities Exam Extremities exam: Present: normal inspection - Back Exam Back exam: Present: normal inspection - Neurological Exam Neurological exam: Present: alert, oriented X3 - Psychiatric Psychiatric exam: Present: normal affect, normal mood - Skin Skin exam: Present: warm, dry, intact, normal color. Absent: rash LIANET score - Lianet Score Age > 65: (1) Yes Aspirin use within the Past 7 Days: (0) No 3 or more CAD Risk Factors: (1) Yes 2 or more Angina events in past 24 hrs: (0) No Known CAD with more than 50% Stenosis: (1) Yes Elevated Cardiac Markers: (0) No ST Deviation Greater than 0.5mm: (0) No LIANET Score: 3 ED Medical Decision Making - Lab Data Result diagrams: 02/16/17 11:55 02/16/17 11:51 - EKG Data Interpretation: no acute changes - Radiology Data Radiology results: report reviewed, image reviewed - Medical Decision Making will need admission for chr / pulmonary edema and new onset pneumonia' talk to hospitalist agree with plan fro admssion. Critical care time in (mins) excluding proc time.: 35 Critical care attestation.: If time is entered above; I have spent that time in minutes in the direct care of this critically ill patient, excluding procedure time. ED Disposition Clinical Impression: Atypical chest pain, CHF (congestive heart failure), Acute respiratory failure Disposition: DC09 OP ADMIT IP TO THIS HOSP Is pt being admited?: Yes Does the pt Need Aspirin: No Condition: Good Instructions: Chest Pain (ED) Referrals: PRIMARY CARE, [Primary Care Provider] - 3-5 Days Time of Disposition: 12:47
[2017-02-16 12:59] LABS: Creatine Kinase MB 4.8 ng/mL (0.0-4.0)
[2017-02-16 13:00] LABS: INR 1.64 (0.87-1.13)
[2017-02-16 13:01] LABS: Partial Thromboplastin Time 43.4 Sec. (24.2-36.6)
[2017-02-16] MEDS ORDERED: PROVENTIL IH PRN (13:03)
[2017-02-16] MEDS ORDERED: TYLENOL PO PRN (13:03)
[2017-02-16] MEDS ORDERED: ZOFRAN IV PRN (13:03)
--- NOTE | 2017-02-16 13:09 | History and Physical Report ---
History of Present Illness Chief complaint: My chest hurts when i cough, and i get short of breath too History of present illness: 71 YO Male with HTN, CHF, GERD, OA, Schizophrenia, Chronic Pancreatitis presents to ED for evaluation. Pt states that he has experienced pain in his chest nonproductive cough, and difficulty breathing for the past 3 days with worsening symptoms over the past 1 day. Pt states that pain is 5/10, substernal , worsened with exertion, coughing, and eating, nonradiating, no alleviating factors, and is associated with coughing and shortness of breath. Pt denies fever, chills, palpitations, syncope, prolonged travel/immobility, individual/ family history of DVT/PE, hemoptysis, unintentional weight loss, night sweats, or recent ill contacts. Past History Past Medical History: arthritis, GERD, heart failure, hypertension Past Surgical History: Other (Cardiac cath, bladder surgery) Social history: single. denies: smoking, alcohol abuse, prescription drug abuse , IV drug use Family history: hypertension Medications and Allergies Allergies Allergy/AdvReac Type Severity Reaction Status Date / Time Penicillins Allergy Severe Hives Verified 11/21/14 10:42 Home Medications Medication Instructions Recorded Confirmed Last Taken Type ARIPiprazole [Abilify TAB] 20 mg PO DAILY #30 tablet 11/03/16 02/16/17 02/16/17 Rx Aspirin 81 mg PO QDAY #30 tab.chew 11/03/16 02/16/17 02/16/17 Rx Carvedilol [Coreg] 3.125 mg PO BID #60 tablet 11/03/16 02/16/17 02/16/17 Rx Lisinopril [Zestril TAB] 2.5 mg PO QDAY #30 tab 11/03/16 02/16/17 02/16/17 Rx Furosemide [Lasix TAB] 20 mg PO PRN 02/16/17 02/16/17 Unknown History Active Meds: Active Medications Acetaminophen (Tylenol) 650 mg PO Q4H PRN PRN Reason: Pain MILD(1-3)/Fever >100.5/MILLER Albuterol (Proventil) 2.5 mg IH Q4HRT PRN PRN Reason: Shortness Of Breath Bisacodyl (Dulcolax) 10 mg FL QDAY PRN PRN Reason: Constipation unrelieved by MOM Levofloxacin/Dextrose (Levaquin 750mg/150ml) 750 mg in 150 mls @ 100 mls/hr IV Q24HR OLGA PRN Reason: Protocol Magnesium Hydroxide (Milk Of Magnesia) 30 ml PO Q4H PRN PRN Reason: Constipation Ondansetron HCl (Zofran) 4 mg IV Q8H PRN PRN Reason: N/V unrelieved by Reglan Review of Systems All systems: negative Constitutional: no weight loss, no weight gain, no fever Ears, nose, mouth and throat: no ear pain, no ear discharge, no tinnitis Cardiovascular: chest pain, shortness of breath Respiratory: cough, no hemoptysis Gastrointestinal: no nausea, no vomiting, no diarrhea Genitourinary Male: no dysuria, no hematuria, no flank pain Rectal: no pain Musculoskeletal: no neck stiffness, no neck pain, no shooting arm pain Integumentary: no rash, no pruritis, no redness Neurological: no head injury, no seizures Psychiatric: no anxiety, no memory loss, no change in sleep habits Endocrine: no cold intolerance, no heat intolerance Hematologic/Lymphatic: no easy bruising, no easy bleeding Allergic/Immunologic: no urticaria, no allergic rhinitis Exam - Constitutional Vitals: Temp Pulse Resp BP Pulse Ox 110 H 22 111/81 98 02/16/17 12:45 02/16/17 13:06 02/16/17 12:45 02/16/17 13:06 General appearance: Present: mild distress - EENT Eyes: Present: PERRL ENT: hearing intact, clear oral mucosa - Neck Neck: Present: supple, normal ROM - Respiratory Respiratory effort: labored Respiratory: bilateral: diminished - Cardiovascular Heart Sounds: Present: S1 & S2. Absent: rub, click - Extremities Extremities: pulses symmetrical, No edema Extremity abnormal: edema Peripheral Pulses: abnormal (Capillary refill: 3.5 seconds) - Abdominal General gastrointestinal: Present: soft, non-tender, non-distended, normal bowel sounds Male genitourinary: Present: normal - Integumentary Integumentary: Present: clear, dry, clammy, decreased turgor - Musculoskeletal Musculoskeletal: generalized weakness - Psychiatric Psychiatric: appropriate mood/affect, intact judgment & insight - Neurologic Neurologic: CNII-XII intact, moves all extremities Results - Labs CBC & Chem 7: 02/16/17 11:55 02/16/17 12:30 Labs: Abnormal lab results 02/16/17 02/16/17 02/16/17 Range/Units 11:51 11:55 12:30 RBC 5.31 H (3.65-5.03) M/mm3 Hct 47.0 H (35.5-45.6) % RDW 15.4 H (13.2-15.2) % Plt Count 121 L (140-440) K/mm3 [place] % (Auto) 7.7 H (0.0-7.3) % Lymph # 0.9 L (1.2-5.4) K/mm3 Seg Neutrophils % 77.2 H (40.0-70.0) % PT 19.4 H (12.2-14.9) Sec. INR 1.64 H (0.87-1.13) APTT 43.4 H (24.2-36.6) Sec. Sodium 146 H (137-145) mmol/L BUN 22 H (9-20) mg/dL CK-MB (CK-2) (0.0-4.0) ng/mL CK-MB (CK-2) Rel Index (0-4) NT-Pro-B Natriuret Pep (0-900) pg/mL 02/16/17 02/16/17 Range/Units 12:30 12:30 RBC (3.65-5.03) M/mm3 Hct (35.5-45.6) % RDW (13.2-15.2) % Plt Count (140-440) K/mm3 [place] % (Auto) (0.0-7.3) % Lymph # (1.2-5.4) K/mm3 Seg Neutrophils % (40.0-70.0) % PT (12.2-14.9) Sec. INR (0.87-1.13) APTT (24.2-36.6) Sec. Sodium (137-145) mmol/L BUN (9-20) mg/dL CK-MB (CK-2) 4.8 H (0.0-4.0) ng/mL CK-MB (CK-2) Rel Index 4.2 H (0-4) NT-Pro-B Natriuret Pep 03801 H (0-900) pg/mL Assessment and Plan - Patient Problems (1) Sepsis Current Visit: Yes Status: Acute Qualifiers: Sepsis type: S Plan to address problem: Sepsis Protocol: IV abx, blood cultures, monitor uop, monitor fluid balance, serial lactate level, repeat bmp. (2) Aspiration pneumonia Current Visit: Yes Status: Acute Qualifiers: Aspiration pneumonia type: A Laterality: left Lung location: lower lobe of lung Plan to address problem: IV abx, supplemental oxygen, nebs, aspiration precautions, incentive spirometry , pulmonary toilet (3) HTN (hypertension) Current Visit: Yes Status: Acute Qualifiers: Hypertension type: essential hypertension Qualified Code(s): I10 - Essential (primary) hypertension Plan to address problem: monitor bp q shift. (4) Acute respiratory failure Current Visit: Yes Status: Acute Qualifiers: Respiratory failure complication: R Plan to address problem: Supplemental oxygen, nebs, aspiration precautions, supportive care, incentive spirometry, pulmonary toilet, treat pneumonia, aspiration precautions. (5) CHF (congestive heart failure) Current Visit: Yes Status: Acute Qualifiers: Congestive heart failure type: C Congestive heart failure chronicity: C Plan to address problem: Resume home medication, remote telemetry, supportive care, serial cardiac enzymes, ekg, (6) DVT prophylaxis Current Visit: Yes Status: Acute
[2017-02-16 13:11] LABS: Alanine Aminotransferase 74 units/L (7-56); Albumin 3.3 g/dL (3.9-5); Albumin/Globulin Ratio 1.5 %; Alkaline Phosphatase 84 units/L (35-129); Anion Gap 17 mmol/L; BUN/Creatinine Ratio 16.92; Blood Urea Nitrogen 22 mg/dL (9-20); Calcium 8.6 mg/dL (8.4-10.2); Carbon Dioxide 29 mmol/L (22-30); Chloride 100.1 mmol/L (98-107); Glucose 94 mg/dL (75-100); Lipase 76 units/L (13-60); Potassium 4.2 mmol/L (3.6-5.0); Sodium 142 mmol/L (137-145); Total Protein 5.5 g/dL (6.3-8.2)
[2017-02-16] MEDS ORDERED: NACL 0.9% 500 ML 500 ML ONE ×2 (14:35→14:36)
[2017-02-16] MEDS ORDERED: NACL 0.9% 500 ML 500 ML IV ONE ×2 (14:39→16:15)
--- NOTE | 2017-02-16 14:51 | Admit Criteria Form ---
Admission Criteria Documentation: HEART FAILURE: COMMON COMPLICATIONS Clinical Indications for Inpatient Care (brevig mission/check or initial the applicable condition/criteria): Ongoing inpatient care may be indicated for heart failure with 1 or more of the following (1)(2)(3)(4)(5)(6)(7)(8): [ ]I. New-onset heart failure [ ]II. Acute cardiac ischemia causing or associated with failure [ ]III. Ongoing need for care for primary condition requiring frequent therapy adjustments because of changes in cardiac function (eg, drug dosage changes for drugs that are renally metabolized) [X ]IV. Complications of heart failure, including 1 or more of the following: [ ]a) Hemodynamic instability [ ]b) Pericardial effusion [ ]c) Symptomatic pleural effusion(16) [ ]d) Hypoxemia [X ]e) Tachypnea [ ]f) Dyspnea [ ]g) Syncope [ ]h) Altered mental status [ ]i) Acute renal insufficiency that is severe (reduction of more than 50% in estimated glomerular filtration rate from baseline) or progressive (reduction of more than 25% in estimated glomerular filtration rate from baseline, with creatinine continuing to rise) [ ]j) Debilitating anasarca (eg tissue breakdown with infection, inability to void due to edema)(E) (17) [ ]k) Clinically significant metabolic abnormalities due to heart failure (e.g., new-onset metabolic acidosis) Extended stay may be needed until ALL of the following are present(1)(3)(18)(41) (55): [ ]a) Hemodynamic stability [ ]b) Stable and effective diuretic regimen established (or patient on stable dialysis regimen if in chronic renal failure) [ ]c) Volume status acceptable on oral medication [ ]d) Breathing comfortably at rest [ ]e) Saturation of arterial oxygen greater than 90% or at acceptable baseline [ ]f) Pulmonary edema absent or improved [ ]g) Peripheral or sacral edema absent or improved [ ]h) Renal function stable and manageable at a lower level of care [ ]i) Complications (e.g., pleural effusion) resolved or manageable at a lower level of care [ ]j) Patient or caregiver has received written discharge instructions or educational material addressing activity level, diet, discharge medications, follow-up appointment, weight monitoring, and what to do if symptoms worsen. (56)(57)(58) The original [facility] [employer] content created by Valente Spivey has been revised. The portions of the content which have been revised are identified through the use of italic text or in bold, and Valente Spivey has neither reviewed nor approved the modified material.All other unmodified content is copyright [facility] [employer]. Please see references footnoted in the original [facility] edition 2017 Admission Criteria Met: Yes
[2017-02-16] MEDS ORDERED: NACL 0.9% 1000 ML IV ONE (15:15)
[2017-02-16] MEDS: LEVAQUIN 750MG/150ML 750 MG/150 ML BAG IV SCH (16:06)
--- NOTE | 2017-02-17 13:11 | Progress Note ---
Assessment and Plan Assessment and plan: Sepsis. IV antibiotics and IV fluid hydration. Follow-up blood cultures and lactate levels. Aspiration pneumonia. Continued antibiotics and speech therapy evaluation. Hypertension. Resume antihypertensive medications. Acute hypoxic respiratory failure. Continue supplemental oxygen, nebulizer treatments and aspiration precautions. Chronic CHF. Comes stated. Resume home medications. DVT prophylaxis. History Interval history: No new issues overnight. Patient does report some occasional difficulty swallowing and reflux. Hospitalist Physical - Constitutional Vitals: Temp Pulse Resp BP Pulse Ox 96.6 F L 114 H 20 126/76 99 02/17/17 10:00 02/17/17 11:05 02/17/17 10:00 02/17/17 10:00 02/17/17 10:00 General appearance: Present: no acute distress - EENT Eyes: Present: PERRL, EOM intact ENT: hearing intact, clear oral mucosa, dentition normal - Neck Neck: Present: supple, normal ROM - Respiratory Respiratory effort: normal Respiratory: bilateral: CTA - Cardiovascular Rhythm: regular Heart Sounds: Present: S1 & S2. Absent: gallop, rub - Extremities Extremities: no ischemia, No edema, Full ROM - Abdominal General gastrointestinal: soft, non-tender, non-distended, normal bowel sounds - Integumentary Integumentary: Present: clear, warm, dry - Neurologic Neurologic: CNII-XII intact, moves all extremities Results - Labs CBC & Chem 7: 02/16/17 11:55 02/16/17 12:30 Labs: Laboratory Last Values WBC 6.6 K/mm3 (4.5-11.0) 02/16/17 11:55 RBC 5.31 M/mm3 (3.65-5.03) H 02/16/17 11:55 Hgb 15.0 gm/dl (11.8-15.2) 02/16/17 11:55 Hct 47.0 % (35.5-45.6) H 02/16/17 11:55 MCV 89 fl (84-94) 02/16/17 11:55 MCH 28 pg (28-32) 02/16/17 11:55 MCHC 32 % (32-34) 02/16/17 11:55 RDW 15.4 % (13.2-15.2) H 02/16/17 11:55 Plt Count 121 K/mm3 (140-440) L 02/16/17 11:55 Lymph % (Auto) 14.1 % (13.4-35.0) 02/16/17 11:55 [place] % (Auto) 7.7 % (0.0-7.3) H 02/16/17 11:55 Eos % (Auto) 0.3 % (0.0-4.3) 02/16/17 11:55 Baso % (Auto) 0.7 % (0.0-1.8) 02/16/17 11:55 Lymph # 0.9 K/mm3 (1.2-5.4) L 02/16/17 11:55 [place] # 0.5 K/mm3 (0.0-0.8) 02/16/17 11:55 Eos # 0.0 K/mm3 (0.0-0.4) 02/16/17 11:55 Baso # 0.0 K/mm3 (0.0-0.1) 02/16/17 11:55 Seg Neutrophils % 77.2 % (40.0-70.0) H 02/16/17 11:55 Seg Neutrophils # 5.1 K/mm3 (1.8-7.7) 02/16/17 11:55 PT 19.4 Sec. (12.2-14.9) H 02/16/17 12:30 INR 1.64 (0.87-1.13) H 02/16/17 12:30 APTT 43.4 Sec. (24.2-36.6) H 02/16/17 12:30 D-Dimer 209.08 ng/mlDDU (0-234) 02/16/17 15:26 Sodium 142 mmol/L (137-145) 02/16/17 12:30 Potassium 4.2 mmol/L (3.6-5.0) 02/16/17 12:30 Chloride 100.1 mmol/L (98-107) 02/16/17 12:30 Carbon Dioxide 29 mmol/L (22-30) 02/16/17 12:30 Anion Gap 17 mmol/L 02/16/17 12:30 BUN 22 mg/dL (9-20) H 02/16/17 12:30 Creatinine 1.3 mg/dL (0.8-1.5) 02/16/17 12:30 Estimated GFR > 60 ml/min 02/16/17 12:30 BUN/Creatinine Ratio 16.92 % 02/16/17 12:30 Glucose 94 mg/dL (75-100) 02/16/17 12:30 Lactic Acid 2.40 mmol/L (0.7-2.0) H* 02/16/17 22:19 Calcium 8.6 mg/dL (8.4-10.2) 02/16/17 12:30 Total Bilirubin 1.60 mg/dL (0.1-1.2) H 02/16/17 12:30 AST 54 units/L (5-40) H 02/16/17 12:30 ALT 74 units/L (7-56) H 02/16/17 12:30 Alkaline Phosphatase 84 units/L (35-129) 02/16/17 12:30 Total Creatine Kinase 113 units/L (55-170) 02/16/17 12:30 CK-MB (CK-2) 4.8 ng/mL (0.0-4.0) H 02/16/17 12:30 CK-MB (CK-2) Rel Index 4.2 (0-4) H 02/16/17 12:30 Troponin T < 0.010 ng/mL (0.00-0.029) 02/16/17 NT-Pro-B Natriuret Pep 40191 pg/mL (0-900) H 02/16/17 12:30 Total Protein 5.5 g/dL (6.3-8.2) L 02/16/17 12:30 Albumin 3.3 g/dL (3.9-5) L 02/16/17 12:30 Albumin/Globulin Ratio 1.5 % 02/16/17 12: Lipase 76 units/L (13-60) H 02/16/17 12:30 Blood Type B POSITIVE 02/16/17 Antibody Screen Negative 02/16/17
[2017-02-17] MEDS: LEVAQUIN 750MG/150ML 750 MG/150 ML BAG IV SCH (13:48)
[2017-02-18 05:35] LABS: Basophils % (Auto) 0.6 % (0.0-1.8); Eosinophils % (Auto) 1.6 % (0.0-4.3); Hemoglobin 14.6 gm/dl (11.8-15.2); Mean Corpuscular HGB Conc 32 % (32-34); Mean Corpuscular Hemoglobin 28 pg (28-32); Mean Corpuscular Volume 88 fl (84-94); Platelet Count 112 K/mm3 (140-440); Red Blood Count 5.14 M/mm3 (3.65-5.03); Red Cell Distribution Width 15.1 % (13.2-15.2)
[2017-02-18 06:01] LABS: Anion Gap 16 mmol/L; BUN/Creatinine Ratio 24.44; Blood Urea Nitrogen 22 mg/dL (9-20); Calcium 8.4 mg/dL (8.4-10.2); Carbon Dioxide 24 mmol/L (22-30); Chloride 105.2 mmol/L (98-107); Glucose 126 mg/dL (75-100); Potassium 3.6 mmol/L (3.6-5.0); Sodium 142 mmol/L (137-145)
--- NOTE | 2017-02-18 09:07 | Fluoroscopy Report ---
MODIFIED BARIUM SWALLOW INDICATION: Dysphagia. COMPARISON: None similar. FINDINGS: Fluoroscopy with videoradiography provided by radiologist for speech therapist to assess the swallowing mechanism. Food items of various consistencies given. No aspiration noted. Few missing teeth. IMPRESSION: Successful modified barium swallow. Please refer to detailed report from speech pathologist. Thank you for the opportunity to participate in this patient's care.
[2017-02-18] MEDS: MILK OF MAGNESIA PO PRN (09:53)
--- NOTE | 2017-02-18 09:53 | Progress Note ---
Assessment and Plan Assessment and plan: Sepsis. IV antibiotics and IV fluid hydration. Follow-up blood cultures and lactate levels. Left lower lobe pneumonia. Continued antibiotics. Speech therapy recommended Dysphagia Mechanical Soft-Ground diet. No signs of aspiration on MBS. Hypertension. Resume antihypertensive medications. Acute hypoxic respiratory failure. Continue supplemental oxygen, nebulizer treatments and aspiration precautions. Chronic CHF. Compensated. Resume home medications. DVT prophylaxis. Disposition. Anticipate discharge in a.m. History Interval history: No new issues overnight. Hospitalist Physical - Constitutional Vitals: Temp Pulse Resp BP Pulse Ox 97.5 F L 110 H 18 112/87 98 02/17/17 22:00 02/18/17 05:42 02/17/17 22:00 02/17/17 22:00 02/17/17 22:00 General appearance: Present: no acute distress - EENT Eyes: Present: PERRL, EOM intact ENT: hearing intact, clear oral mucosa, dentition normal - Neck Neck: Present: supple, normal ROM - Respiratory Respiratory effort: normal Respiratory: bilateral: CTA - Cardiovascular Rhythm: regular Heart Sounds: Present: S1 & S2. Absent: gallop, rub - Extremities Extremities: no ischemia, No edema, Full ROM - Abdominal General gastrointestinal: soft, non-tender, non-distended, normal bowel sounds - Integumentary Integumentary: Present: clear, warm, dry - Neurologic Neurologic: CNII-XII intact, moves all extremities Results - Labs CBC & Chem 7: 02/18/17 04:46 02/18/17 04:46 Labs: Laboratory Last Values WBC 7.0 K/mm3 (4.5-11.0) 02/18/17 04:46 RBC 5.14 M/mm3 (3.65-5.03) H 02/18/17 04:46 Hgb 14.6 gm/dl (11.8-15.2) 02/18/17 04:46 Hct 45.0 % (35.5-45.6) 02/18/17 04:46 MCV 88 fl (84-94) 02/18/17 04:46 MCH 28 pg (28-32) 02/18/17 04:46 MCHC 32 % (32-34) 02/18/17 04:46 RDW 15.1 % (13.2-15.2) 02/18/17 04:46 Plt Count 112 K/mm3 (140-440) L 02/18/17 04:46 Lymph % (Auto) 12.1 % (13.4-35.0) L 02/18/17 04:46 [place] % (Auto) 8.6 % (0.0-7.3) H 02/18/17 04:46 Eos % (Auto) 1.6 % (0.0-4.3) 02/18/17 04:46 Baso % (Auto) 0.6 % (0.0-1.8) 02/18/17 04:46 Lymph # 0.8 K/mm3 (1.2-5.4) L 02/18/17 04:46 [place] # 0.6 K/mm3 (0.0-0.8) 02/18/17 04:46 Eos # 0.1 K/mm3 (0.0-0.4) 02/18/17 04:46 Baso # 0.0 K/mm3 (0.0-0.1) 02/18/17 04:46 Seg Neutrophils % 77.1 % (40.0-70.0) H 02/18/17 04:46 Seg Neutrophils # 5.4 K/mm3 (1.8-7.7) 02/18/17 04:46 PT 19.4 Sec. (12.2-14.9) H 02/16/17 12:30 INR 1.64 (0.87-1.13) H 02/16/17 12:30 APTT 43.4 Sec. (24.2-36.6) H 02/16/17 12:30 D-Dimer 209.08 ng/mlDDU (0-234) 02/16/17 15:26 Sodium 142 mmol/L (137-145) 02/18/17 04:46 Potassium 3.6 mmol/L (3.6-5.0) 02/18/17 04:46 Chloride 105.2 mmol/L (98-107) 02/18/17 04:46 Carbon Dioxide 24 mmol/L (22-30) 02/18/17 04:46 Anion Gap 16 mmol/L 02/18/17 04:46 BUN 22 mg/dL (9-20) H 02/18/17 04:46 Creatinine 0.9 mg/dL (0.8-1.5) 02/18/17 04:46 Estimated GFR > 60 ml/min 02/18/17 04:46 BUN/Creatinine Ratio 24.44 % 02/18/17 04:46 Glucose 126 mg/dL (75-100) H 02/18/17 04:46 Lactic Acid 2.40 mmol/L (0.7-2.0) H* 02/16/17 22:19 Calcium 8.4 mg/dL (8.4-10.2) 02/18/17 04:46 Total Bilirubin 1.60 mg/dL (0.1-1.2) H 02/16/17 12:30 AST 54 units/L (5-40) H 02/16/17 12:30 ALT 74 units/L (7-56) H 02/16/17 12:30 Alkaline Phosphatase 84 units/L (35-129) 02/16/17 12:30 Total Creatine Kinase 113 units/L (55-170) 02/16/17 12:30 CK-MB (CK-2) 4.8 ng/mL (0.0-4.0) H 02/16/17 12:30 CK-MB (CK-2) Rel Index 4.2 (0-4) H 02/16/17 12:30 Troponin T < 0.010 ng/mL (0.00-0.029) 02/16/17 15: NT-Pro-B Natriuret Pep 21137 pg/mL (0-900) H 02/16/17 12:30 Total Protein 5.5 g/dL (6.3-8.2) L 02/16/17 12:30 Albumin 3.3 g/dL (3.9-5) L 02/16/17 12:30 Albumin/Globulin Ratio 1.5 % 02/16/17 12:30 Lipase 76 units/L (13-60) H 02/16/17 12:30 Blood Type B POSITIVE 02/16/17 Antibody Screen Negative 02/16/17
[2017-02-18] MEDS ORDERED: LOVENOX SUB-Q SCH (10:00)
[2017-02-18] MEDS: DULCOLAX PR PRN (13:40)
[2017-02-18] MEDS: LEVAQUIN PO SCH (22:37)
[2017-02-19 06:17] LABS: Basophils % (Auto) 0.9 % (0.0-1.8); Eosinophils % (Auto) 2.8 % (0.0-4.3); Hematocrit 44.6 % (35.5-45.6); Hemoglobin 14.6 gm/dl (11.8-15.2); Mean Corpuscular HGB Conc 33 % (32-34); Mean Corpuscular Hemoglobin 29 pg (28-32); Mean Corpuscular Volume 88 fl (84-94); Platelet Count 112 K/mm3 (140-440); Red Blood Count 5.08 M/mm3 (3.65-5.03); Red Cell Distribution Width 15.6 % (13.2-15.2); White Blood Count 6.1 K/mm3 (4.5-11.0)
[2017-02-19 06:33] LABS: Anion Gap 17 mmol/L; BUN/Creatinine Ratio 23.75; Blood Urea Nitrogen 19 mg/dL (9-20); Calcium 8.5 mg/dL (8.4-10.2); Carbon Dioxide 25 mmol/L (22-30); Chloride 105.4 mmol/L (98-107); Glucose 85 mg/dL (75-100); Potassium 4.2 mmol/L (3.6-5.0); Sodium 143 mmol/L (137-145)
[2017-02-19] MEDS: LOVENOX SUB-Q SCH (09:40)
--- NOTE | 2017-02-19 17:03 | Progress Note ---
Assessment and Plan Sepsis. IV antibiotics and IV fluid hydration. Follow-up blood cultures and lactate levels. Left lower lobe pneumonia. Continued antibiotics. Speech therapy recommended Dysphagia Mechanical Soft-Ground diet. No signs of aspiration on MBS. Hypertension. Resume antihypertensive medications. Acute hypoxic respiratory failure. Continue supplemental oxygen, nebulizer treatments and aspiration precautions. Chronic CHF. Compensated. Resume home medications. DVT prophylaxis. Disposition. Anticipate discharge in a.m. Subjective Date of service: 02/19/17 Principal diagnosis: Sepsis Interval history: Doing well,Awaiting Discharge Objective - Constitutional Vitals: Vital Signs - 12hr 02/19/17 02/19/17 02/19/17 08: 09:48 10:00 Temperature 97.9 F Pulse Rate 104 H 116 H Pulse Rate [ 116 H Apical] Respiratory 20 Rate Blood Pressure 111/83 O2 Sat by Pulse 99 Oximetry General appearance: Present: no acute distress, well-nourished - EENT Eyes: PERRL, EOM intact ENT: hearing intact, clear oral mucosa Ears: bilateral: normal - Neck Neck: supple, normal ROM - Respiratory Respiratory effort: normal Respiratory: bilateral: CTA - Breasts Breasts: normal - Cardiovascular Heart rate: 80 Rhythm: regular Heart Sounds: Present: S1 & S2. Absent: gallop, rub Extremities: pulses intact, No edema, normal color, Full ROM - Gastrointestinal General gastrointestinal: Present: soft, non-tender, non-distended, normal bowel sounds - Genitourinary Male genitourinary: normal - Integumentary Integumentary: clear, warm, dry - Musculoskeletal Musculoskeletal: 1, strength equal bilaterally - Neurologic Neurologic: CNII-XII intact, moves all extremities - Psychiatric Psychiatric: memory intact, appropriate mood/affect, intact judgment & insight - Labs CBC & Chem 7: 02/20/17 05:05 02/20/17 05:05 Labs: Abnormal lab results 02/19/17 Range/Units 05:11 RBC 5.08 H (3.65-5.03) M/mm3 RDW 15.6 H (13.2-15.2) % Plt Count 112 L (140-440) K/mm3 [place] % (Auto) 8.8 H (0.0-7.3) % Lymph # 1.0 L (1.2-5.4) K/mm3 Seg Neutrophils % 71.2 H (40.0-70.0) %
[2017-02-19] MEDS: DULCOLAX PR PRN (22:02)
[2017-02-19] MEDS: LEVAQUIN PO SCH (22:02)
[2017-02-19] MEDS: MILK OF MAGNESIA PO PRN (22:06)
[2017-02-20 06:03] LABS: Anion Gap 15 mmol/L; Blood Urea Nitrogen 18 mg/dL (9-20); Calcium 8.8 mg/dL (8.4-10.2); Carbon Dioxide 26 mmol/L (22-30); Chloride 100.8 mmol/L (98-107); Glucose 121 mg/dL (75-100); Potassium 4.1 mmol/L (3.6-5.0); Sodium 138 mmol/L (137-145)
[2017-02-20 06:04] LABS: Basophils % (Auto) 0.9 % (0.0-1.8); Eosinophils % (Auto) 2.8 % (0.0-4.3); Hematocrit 45.7 % (35.5-45.6); Hemoglobin 14.3 gm/dl (11.8-15.2); Mean Corpuscular HGB Conc 31 % (32-34); Mean Corpuscular Hemoglobin 28 pg (28-32); Mean Corpuscular Volume 89 fl (84-94); Platelet Count 122 K/mm3 (140-440); Red Blood Count 5.13 M/mm3 (3.65-5.03); Red Cell Distribution Width 15.5 % (13.2-15.2); White Blood Count 6.3 K/mm3 (4.5-11.0)
--- NOTE | 2017-02-20 10:33 | Progress Note ---
Assessment and Plan Assessment and plan: Sepsis. IV antibiotics and IV fluid hydration. Follow-up blood cultures and lactate levels. Left lower lobe pneumonia. Continued antibiotics. Speech therapy recommended Dysphagia Mechanical Soft-Ground diet. No signs of aspiration on MBS. Chest pain. Patient will undergo Lexiscan in a.m. now that the pneumonia is resolving. Hypertension. Resume antihypertensive medications. Acute hypoxic respiratory failure. Continue supplemental oxygen, nebulizer treatments and aspiration precautions. Chronic CHF. Compensated. Resume home medications. DVT prophylaxis. Disposition. Anticipate discharge tomorrow if Lexiscan negative. History Interval history: No new issues overnight. Hospitalist Physical - Constitutional Vitals: Temp Pulse Resp BP Pulse Ox 98.0 F 116 H 20 126/97 96 02/20/17 10:00 02/20/17 10:00 02/20/17 10:00 02/20/17 10:00 02/20/17 10:00 General appearance: Present: no acute distress, well-nourished - EENT Eyes: Present: PERRL, EOM intact ENT: hearing intact, clear oral mucosa, dentition normal - Neck Neck: Present: supple, normal ROM - Respiratory Respiratory effort: normal Respiratory: bilateral: CTA - Cardiovascular Rhythm: regular Heart Sounds: Present: S1 & S2. Absent: gallop, rub - Extremities Extremities: no ischemia, No edema, Full ROM - Abdominal General gastrointestinal: soft, non-tender, non-distended, normal bowel sounds - Integumentary Integumentary: Present: clear, warm, dry - Neurologic Neurologic: CNII-XII intact, moves all extremities Results - Labs CBC & Chem 7: 02/20/17 05:05 02/20/17 05:05 Labs: Laboratory Last Values WBC 6.3 K/mm3 (4.5-11.0) 02/20/17 05:05 RBC 5.13 M/mm3 (3.65-5.03) H 02/20/17 05:05 Hgb 14.3 gm/dl (11.8-15.2) 02/20/17 05:05 Hct 45.7 % (35.5-45.6) H 02/20/17 05:05 MCV 89 fl (84-94) 02/20/17 05:05 MCH 28 pg (28-32) 02/20/17 05:05 MCHC 31 % (32-34) L 02/20/17 05:05 RDW 15.5 % (13.2-15.2) H 02/20/17 05:05 Plt Count 122 K/mm3 (140-440) L 02/20/17 05:05 Lymph % (Auto) 13.0 % (13.4-35.0) L 02/20/17 05:05 [place] % (Auto) 9.0 % (0.0-7.3) H 02/20/17 05:05 Eos % (Auto) 2.8 % (0.0-4.3) 02/20/17 05:05 Baso % (Auto) 0.9 % (0.0-1.8) 02/20/17 05:05 Lymph # 0.8 K/mm3 (1.2-5.4) L 02/20/17 05:05 [place] # 0.6 K/mm3 (0.0-0.8) 02/20/17 05:05 Eos # 0.2 K/mm3 (0.0-0.4) 02/20/17 05:05 Baso # 0.1 K/mm3 (0.0-0.1) 02/20/17 05:05 Seg Neutrophils % 74.3 % (40.0-70.0) H 02/20/17 05:05 Seg Neutrophils # 4.7 K/mm3 (1.8-7.7) 02/20/17 05:05 PT 19.4 Sec. (12.2-14.9) H 02/16/17 12:30 INR 1.64 (0.87-1.13) H 02/16/17 12:30 APTT 43.4 Sec. (24.2-36.6) H 02/16/17 12:30 D-Dimer 209.08 ng/mlDDU (0-234) 02/16/17 15:26 Sodium 138 mmol/L (137-145) 02/20/17 05:05 Potassium 4.1 mmol/L (3.6-5.0) 02/20/17 05:05 Chloride 100.8 mmol/L (98-107) 02/20/17 05:05 Carbon Dioxide 26 mmol/L (22-30) 02/20/17 05:05 Anion Gap 15 mmol/L 02/20/17 05:05 BUN 18 mg/dL (9-20) 02/20/17 05:05 Creatinine 1.0 mg/dL (0.8-1.5) 02/20/17 05:05 Estimated GFR > 60 ml/min 02/20/17 05:05 BUN/Creatinine Ratio 18.00 % 02/20/17 05:05 Glucose 121 mg/dL (75-100) H 02/20/17 05:05 Lactic Acid 2.40 mmol/L (0.7-2.0) H* 02/16/17 22:19 Calcium 8.8 mg/dL (8.4-10.2) 02/20/17 05:05 Total Bilirubin 1.60 mg/dL (0.1-1.2) H 02/16/17 12:30 AST 54 units/L (5-40) H 02/16/17 12:30 ALT 74 units/L (7-56) H 02/16/17 12:30 Alkaline Phosphatase 84 units/L (35-129) 02/16/17 12:30 Total Creatine Kinase 113 units/L (55-170) 02/16/17 12:30 CK-MB (CK-2) 4.8 ng/mL (0.0-4.0) H 02/16/17 12:30 CK-MB (CK-2) Rel Index 4.2 (0-4) H 02/16/17 12:30 Troponin T < 0.010 ng/mL (0.00-0.029) 02/16/17 15:26 NT-Pro-B Natriuret Pep 31128 pg/mL (0-900) H 02/16/17 12:30 Total Protein 5.5 g/dL (6.3-8.2) L 02/16/17 12:30 Albumin 3.3 g/dL (3.9-5) L 02/16/17 12:30 Albumin/Globulin Ratio 1.5 % 02/16/17 12:30 Lipase 76 units/L (13-60) H 02/16/17 12:30 Blood Type B POSITIVE 02/16/17 15: Antibody Screen Negative 02/16/17:
[2017-02-20] MEDS: LOVENOX SUB-Q SCH (11:03)
[2017-02-20] MEDS: LEVAQUIN PO SCH (22:23)
[2017-02-21 04:35] LABS: Basophils % (Auto) 1.2 % (0.0-1.8); Eosinophils % (Auto) 2.5 % (0.0-4.3); Hematocrit 44.4 % (35.5-45.6); Hemoglobin 14.4 gm/dl (11.8-15.2); Mean Corpuscular HGB Conc 33 % (32-34); Mean Corpuscular Hemoglobin 29 pg (28-32); Mean Corpuscular Volume 89 fl (84-94); Platelet Count 136 K/mm3 (140-440); Red Blood Count 5.01 M/mm3 (3.65-5.03); Red Cell Distribution Width 15.5 % (13.2-15.2); White Blood Count 5.5 K/mm3 (4.5-11.0)
[2017-02-21 04:47] LABS: BUN/Creatinine Ratio 15.45; Blood Urea Nitrogen 17 mg/dL (9-20); Calcium 8.1 mg/dL (8.4-10.2); Carbon Dioxide 28 mmol/L (22-30); Glucose 87 mg/dL (75-100)
[2017-02-21 04:48] LABS: Anion Gap 14 mmol/L; Chloride 104.5 mmol/L (98-107); Potassium 4.2 mmol/L (3.6-5.0); Sodium 142 mmol/L (137-145)
--- NOTE | 2017-02-21 07:37 | Discharge Summary ---
Providers - Providers Date of Admission: 02/16/17 14:44 Date of discharge: 02/22/17 Attending physician: KARISSA SEAMAN 02/17/17 13:10 Speech Therapy Evaluation and Treat [CONS] Routine Reason For Exam: swallow eval Primary care physician: [facility] Hospitalization Reason for admission: cp Condition: Good Hospital course: 71 YO Male with HTN, CHF, GERD, OA, Schizophrenia, Chronic Pancreatitis presents to ED for evaluation. Pt stated that he has experienced pain in his chest nonproductive cough, and difficulty breathing for 3 days prior to admission. Patient stated that he had worsening symptoms over the course of 24 hours leading up to admission. Pt stated that the pain was 5/10, substernal, worsened with exertion, coughing, and eating, nonradiating, no alleviating factors, and was associated with coughing and shortness of breath. Pt denied fever, chills, palpitations, syncope, prolonged travel/immobility, individual/ family history of DVT/PE, hemoptysis, unintentional weight loss, night sweats, or recent ill contacts. Patient was admitted with diagnosis of acute hypoxic respiratory failure secondary to aspiration pneumonia and sepsis. Chest x-ray revealed left lower lobe pneumonia and patient received appropriate IV antibiotics. Blood cultures were found to be negative. Speech therapy evaluated the patient with modified barium swallow. Speech therapy recommended mechanical soft ground diet. No signs of aspiration on MBS. Patient underwent stress thallium which was found to be negative. Etiology of chest pain is likely secondary to GERD versus the aspiration pneumonia. Patient is felt to have received maximal hospital benefit. Therefore, patient will be discharged home. Dedicated discharged 35 minutes. Disposition: - TO HOME OR SELFCARE Time spent for discharge: 35 - Discharge Diagnoses (1) GERD (gastroesophageal reflux disease) Status: Acute Qualifiers: Esophagitis presence: E (2) Acute respiratory failure Status: Acute Qualifiers: Respiratory failure complication: R (3) Aspiration pneumonia Status: Acute Qualifiers: Aspiration pneumonia type: A Laterality: left Lung location: lower lobe of lung (4) Atypical chest pain Status: Acute (5) Sepsis Status: Acute Qualifiers: Sepsis type: S Core Measure Documentation - Palliative Care Palliative Care/ Comfort Measures: Not Applicable - Core Measures Any of the following diagnoses?: heart failure - Heart Failure Discharge Requirements RE/ARB for LVSD if EF <40%: Yes Beta denis at discharge: Yes Exam - Constitutional Vitals: Temp Pulse Resp BP Pulse Ox 98.6 F 108 H 20 124/86 96 02/20/17 22:00 02/20/17 22:00 02/20/17 22:00 02/20/17 22:00 02/21/17 07:28 General appearance: Present: no acute distress, well-nourished - EENT Eyes: Present: PERRL ENT: hearing intact, clear oral mucosa - Neck Neck: Present: supple, normal ROM - Respiratory Respiratory effort: normal Respiratory: bilateral: CTA - Cardiovascular Heart Sounds: Present: S1 & S2. Absent: rub, click - Extremities Extremities: pulses symmetrical, No edema Peripheral Pulses: within normal limits - Abdominal General gastrointestinal: Present: soft, non-tender, non-distended, normal bowel sounds Male genitourinary: Present: normal - Integumentary Integumentary: Present: clear, warm, dry - Musculoskeletal Musculoskeletal: gait normal, strength equal bilaterally - Psychiatric Psychiatric: appropriate mood/affect, intact judgment & insight - Neurologic Neurologic: CNII-XII intact, moves all extremities Plan Activity: no restrictions Weight Bearing Status: Weight Bear as Tolerated Diet: low fat, low cholesterol, low salt, other (Dysphagia Mechanical Soft- Ground diet.) Follow up with: PRIMARY CARE,MD [Primary Care Provider] - 3-5 Days Prescriptions: ARIPiprazole [Abilify TAB] 20 mg PO DAILY #30 tablet Aspirin 81 mg PO QDAY #30 tab.chew Bumetanide [Bumex 1 mg tab] 1 mg PO BID #60 tab Carvedilol [Coreg] 3.125 mg PO BID #60 tablet Levofloxacin [Levaquin TAB] 750 mg PO Q24H #30 tablet Lisinopril [Zestril TAB] 2.5 mg PO QDAY #30 tab
[2017-02-21] MEDS ORDERED: LEXISCAN IV ONE ×2 (08:05→08:16)
--- NOTE | 2017-02-21 10:15 | Consultation ---
History of Present Illness Consult date: 02/21/17 Consult reason: chest pain History of present illness: Patient admitted with right sided retrosternal non-radiating chest pain, diagnosed with pneumonia and CHF as evidence by the elevated pro-BNP levels. Patient has a history of chronic chest pain attributed to GERD. He has had extensive work-up for this pain in the past including a cath 11/20/2014 showing normal coronaries. He is known to have a dilated non-ischemic cardiomyopathy for which he has a lifevest but has not been following with a global marketing coordinator. He admits that he takes lasix 40 mg po bid. He describes shortness of breath, orthopnea and LE edema. His ECG showing no ischemic changes when compared to study dated 10/2016 and 11/2016 with negative Sea Past History Past Medical History: arthritis, GERD, heart failure, hypertension Past Surgical History: Other (Cardiac cath, bladder surgery) Social history: single. denies: smoking, alcohol abuse, prescription drug abuse , IV drug use Family history: hypertension Medications and Allergies Allergies Allergy/AdvReac Type Severity Reaction Status Date / Time Penicillins Allergy Severe Hives Verified 11/21/14 10:42 Home Medications Medication Instructions Recorded Confirmed Last Taken Type ARIPiprazole [Abilify TAB] 20 mg PO DAILY #30 tablet 02/21/17 Unknown Rx Aspirin 81 mg PO QDAY #30 tab.chew 02/21/17 Unknown Rx Carvedilol [Coreg] 3.125 mg PO BID #60 tablet 02/21/17 Unknown Rx Furosemide [Lasix TAB] 20 mg PO PRN #30 tablet 02/21/17 Unknown Rx Levofloxacin [Levaquin TAB] 750 mg PO Q24H #30 tablet 02/21/17 Unknown Rx Lisinopril [Zestril TAB] 2.5 mg PO QDAY #30 tab 02/21/17 Unknown Rx Active Meds: Active Medications Acetaminophen (Tylenol) 650 mg PO Q4H PRN PRN Reason: Pain MILD(1-3)/Fever >100.5/MILLER Last Admin: 02/17/17 01:59 Dose: 650 mg Albuterol (Proventil) 2.5 mg IH Q4HRT PRN PRN Reason: Shortness Of Breath Bisacodyl (Dulcolax) 10 mg NM QDAY PRN PRN Reason: Constipation unrelieved by MOM Last Admin: 02/18/17 13:40 Dose: 10 mg Enoxaparin Sodium (Lovenox) 40 mg SUB-Q QDAY@1000 [facility] Last Admin: 02/20/17 11:03 Dose: 40 mg Levofloxacin (Levaquin) 750 mg PO Q24H [facility] Last Admin: 02/20/17 22:23 Dose: 750 mg Magnesium Hydroxide (Milk Of Magnesia) 30 ml PO Q4H PRN PRN Reason: Constipation Last Admin: 02/19/17 22:06 Dose: 30 ml Ondansetron HCl (Zofran) 4 mg IV Q8H PRN PRN Reason: N/V unrelieved by Behzad Review of Systems All systems: negative Physical Examination Vital Signs Resp 31 H 02/16/17 11:52 General appearance: no acute distress HEENT: Positive: PERRL Neck: Positive: JVD/HJR Cardiac: Positive: Reg Rate and Rhythm Lungs: Positive: Decreased Breath Sounds Neuro: Positive: Grossly Intact Abdomen: Positive: Soft Extremities: Present: +2 Edema Results 02/21/17 03:52 02/21/17 03:52 CBC 02/21/17 Range/Units 03:52 WBC 5.5 (4.5-11.0) K/mm3 RBC 5.01 (3.65-5.03) M/mm3 Hgb 14.4 (11.8-15.2) gm/dl Hct 44.4 (35.5-45.6) % Plt Count 136 L (140-440) K/mm3 Lymph # 0.9 L (1.2-5.4) K/mm3 [place] # 0.5 (0.0-0.8) K/mm3 Eos # 0.1 (0.0-0.4) K/mm3 Baso # 0.1 (0.0-0.1) K/mm3 Comprehensive Metabolic Panel 02/21/17 Range/Units 03:52 Sodium 142 (137-145) mmol/L Potassium 4.2 (3.6-5.0) mmol/L Chloride 104.5 (98-107) mmol/L Carbon Dioxide 28 (22-30) mmol/L BUN 17 (9-20) mg/dL Creatinine 1.1 (0.8-1.5) mg/dL Glucose 87 (75-100) mg/dL Calcium 8.1 L (8.4-10.2) mg/dL Assessment and Plan Chronic systolic heart failure Chronic atypical chest pain No signs or symptoms of ACS Dilated non-ischemic cardiomyopathy on lifevest Normal coronaries 11/20/2014 LVEF 15-20%, with evidence of RV dysfunction 10/2016 Pneumonia on CXR treated with levaquin Thrombocytopenia Recommendations: Discussed with Dr Welsh No need for stress testing given atypical symptoms, and previous cardiac work-up Resume lisinopril, metoprolol and change lasix to Bumex 1 mg po bid Patient advised regarding fluid and salt restriction Patient advised to follow-up with our office in 1 week
[2017-02-21] MEDS: LOVENOX SUB-Q SCH (10:19)
[2017-02-21] MEDS ORDERED: LASIX IV SCH (11:00)
--- NOTE | 2017-02-21 11:16 | Progress Note ---
Assessment and Plan Assessment and plan: Sepsis. IV antibiotics and IV fluid hydration. Follow-up blood cultures and lactate levels. Left lower lobe pneumonia. Continued antibiotics. Speech therapy recommended Dysphagia Mechanical Soft-Ground diet. No signs of aspiration on MBS. Chronic atypical Chest pain. Cardiology following. No signs or symptoms of ACS. Cardiology feels there is no need for stress testing given atypical symptoms and previous cardiac workup. Chronic systolic heart failure. Fluid and salt restriction. Lasix 40 mg IV twice a day. Patient will discharged with lisinopril, metoprolol and Bumex 1 mg by mouth twice a day. Dilated nonischemic cardiomyopathy on LifeVest. Patient with normal coronaries 11/20/2014. LVEF 15-20% with evidence of right ventricular dysfunction Hypertension. Resume antihypertensive medications. Acute hypoxic respiratory failure. Continue supplemental oxygen, nebulizer treatments and aspiration precautions. Chronic CHF. Compensated. Resume home medications. DVT prophylaxis. Disposition. Anticipate discharge tomorrow to SNF - Patient Problems (1) GERD (gastroesophageal reflux disease) Current Visit: Yes Status: Acute Qualifiers: Esophagitis presence: E (2) Acute respiratory failure Current Visit: Yes Status: Acute Qualifiers: Respiratory failure complication: R (3) Aspiration pneumonia Current Visit: Yes Status: Acute Qualifiers: Aspiration pneumonia type: A Laterality: left Lung location: lower lobe of lung (4) Atypical chest pain Current Visit: Yes Status: Acute (5) Sepsis Current Visit: Yes Status: Acute Qualifiers: Sepsis type: S History Interval history: No new issues overnight. Hospitalist Physical - Constitutional Vitals: Temp Pulse Resp BP Pulse Ox 97.9 F 111 H 20 115/85 99 02/21/17 09:38 02/21/17 10:00 02/21/17 10:00 02/21/17 09:38 02/21/17 10:00 General appearance: Present: no acute distress - EENT Eyes: Present: PERRL, EOM intact ENT: hearing intact, clear oral mucosa, dentition normal - Neck Neck: Present: supple, normal ROM - Respiratory Respiratory effort: normal Respiratory: bilateral: CTA - Cardiovascular Rhythm: regular Heart Sounds: Present: S1 & S2. Absent: gallop, rub - Extremities Extremities: no ischemia, No edema, Full ROM - Abdominal General gastrointestinal: soft, non-tender, non-distended, normal bowel sounds - Integumentary Integumentary: Present: clear, warm, dry - Neurologic Neurologic: CNII-XII intact, moves all extremities Results - Labs CBC & Chem 7: 02/21/17 03:52 02/21/17 03:52 Labs: Laboratory Last Values WBC 5.5 K/mm3 (4.5-11.0) 02/21/17 03:52 RBC 5.01 M/mm3 (3.65-5.03) 02/21/17 03:52 Hgb 14.4 gm/dl (11.8-15.2) 02/21/17 03:52 Hct 44.4 % (35.5-45.6) 02/21/17 03:52 MCV 89 fl (84-94) 02/21/17 03:52 MCH 29 pg (28-32) 02/21/17 03:52 MCHC 33 % (32-34) 02/21/17 03:52 RDW 15.5 % (13.2-15.2) H 02/21/17 03:52 Plt Count 136 K/mm3 (140-440) L 02/21/17 03:52 Lymph % (Auto) 16.9 % (13.4-35.0) 02/21/17 03:52 [place] % (Auto) 9.9 % (0.0-7.3) H 02/21/17 03:52 Eos % (Auto) 2.5 % (0.0-4.3) 02/21/17 03:52 Baso % (Auto) 1.2 % (0.0-1.8) 02/21/17 03:52 Lymph # 0.9 K/mm3 (1.2-5.4) L 02/21/17 03:52 [place] # 0.5 K/mm3 (0.0-0.8) 02/21/17 03:52 Eos # 0.1 K/mm3 (0.0-0.4) 02/21/17 03:52 Baso # 0.1 K/mm3 (0.0-0.1) 02/21/17 03:52 Seg Neutrophils % 69.5 % (40.0-70.0) 02/21/17 03:52 Seg Neutrophils # 3.8 K/mm3 (1.8-7.7) 02/21/17 03:52 PT 19.4 Sec. (12.2-14.9) H 02/16/17 12:30 INR 1.64 (0.87-1.13) H 02/16/17 12:30 APTT 43.4 Sec. (24.2-36.6) H 02/16/17 12:30 D-Dimer 209.08 ng/mlDDU (0-234) 02/16/17 15:26 Sodium 142 mmol/L (137-145) 02/21/17 03:52 Potassium 4.2 mmol/L (3.6-5.0) 02/21/17 03:52 Chloride 104.5 mmol/L (98-107) 02/21/17 03:52 Carbon Dioxide 28 mmol/L (22-30) 02/21/17 03:52 Anion Gap 14 mmol/L 02/21/17 03:52 BUN 17 mg/dL (9-20) 02/21/17 03:52 Creatinine 1.1 mg/dL (0.8-1.5) 02/21/17 03:52 Estimated GFR > 60 ml/min 02/21/17 03:52 BUN/Creatinine Ratio 15.45 % 02/21/17 03:52 Glucose 87 mg/dL (75-100) 02/21/17 03:52 Lactic Acid 2.40 mmol/L (0.7-2.0) H* 02/16/17 22:19 Calcium 8.1 mg/dL (8.4-10.2) L 02/21/17 03:52 Total Bilirubin 1.60 mg/dL (0.1-1.2) H 02/16/17 12:30 AST 54 units/L (5-40) H 02/16/17 12:30 ALT 74 units/L (7-56) H 02/16/17 12:30 Alkaline Phosphatase 84 units/L (35-129) 02/16/17 12:30 Total Creatine Kinase 113 units/L (55-170) 02/16/17 12:30 CK-MB (CK-2) 4.8 ng/mL (0.0-4.0) H 02/16/17 12:30 CK-MB (CK-2) Rel Index 4.2 (0-4) H 02/16/17 12:30 Troponin T < 0.010 ng/mL (0.00-0.029) 02/16/17 15: NT-Pro-B Natriuret Pep 48372 pg/mL (0-900) H 02/16/17 12:30 Total Protein 5.5 g/dL (6.3-8.2) L 02/16/17 12:30 Albumin 3.3 g/dL (3.9-5) L 02/16/17 12:30 Albumin/Globulin Ratio 1.5 % 02/16/17 12:30 Lipase 76 units/L (13-60) H 02/16/17 12:30 Blood Type B POSITIVE 02/16/17 15: Antibody Screen Negative 02/16/17:
[2017-02-21] MEDS: LASIX IV SCH ×2 (11:59→22:02)
[2017-02-21] MEDS: LEVAQUIN PO SCH (22:02)
[2017-02-22 05:25] LABS: Basophils % (Auto) 1.7 % (0.0-1.8); Hematocrit 43.5 % (35.5-45.6); Hemoglobin 14.2 gm/dl (11.8-15.2); Mean Corpuscular HGB Conc 33 % (32-34); Mean Corpuscular Hemoglobin 29 pg (28-32); Mean Corpuscular Volume 88 fl (84-94); Platelet Count 110 K/mm3 (140-440); Red Blood Count 4.96 M/mm3 (3.65-5.03); Red Cell Distribution Width 15.3 % (13.2-15.2); White Blood Count 5.1 K/mm3 (4.5-11.0)
[2017-02-22 05:36] LABS: Anion Gap 14 mmol/L; Blood Urea Nitrogen 18 mg/dL (9-20); Calcium 8.1 mg/dL (8.4-10.2); Carbon Dioxide 30 mmol/L (22-30); Glucose 81 mg/dL (75-100); Sodium 145 mmol/L (137-145)
[2017-02-22] MEDS: LOVENOX SUB-Q SCH (10:17)
[2017-02-22] MEDS: LASIX IV SCH ×3 (10:18→22:17)
--- NOTE | 2017-02-22 12:08 | Progress Note ---
Assessment and Plan Chronic systolic heart failure Chronic atypical chest pain No signs or symptoms of ACS Dilated non-ischemic cardiomyopathy patient has lifevest as an outpatient Normal coronaries 11/20/2014 LVEF 15-20%, with evidence of RV dysfunction 10/2016 Pneumonia Thrombocytopenia Recommendations: Resume lisinopril, metoprolol and change lasix to Bumex 1 mg po bid. Fluid and salt restriction. Patient will follow-up with our office as scheduled . Subjective Date of service: 02/22/17 Principal diagnosis: Sepsis Interval history: Patient has no chest pain or shortness of breath. Wants to go home. Objective Vital Signs Temp Pulse Pulse Resp Resp BP Pulse Ox 02/22/17 08:42 99 02/21/17 22:00 98 F 108 H 108 H 18 18 113/82 97 02/21/17 21:01 97 - Physical Examination General: No Apparent Distress HEENT: Positive: PERRL Neck: Positive: trachea midline Cardiac: Positive: Reg Rate and Rhythm Neuro: Positive: Grossly Intact - Labs and Meds CBC 02/22/17 Range/Units 04:31 WBC 5.1 (4.5-11.0) K/mm3 RBC 4.96 (3.65-5.03) M/mm3 Hgb 14.2 (11.8-15.2) gm/dl Hct 43.5 (35.5-45.6) % Plt Count 110 L (140-440) K/mm3 Lymph # 0.9 L (1.2-5.4) K/mm3 [place] # 0.5 (0.0-0.8) K/mm3 Eos # 0.1 (0.0-0.4) K/mm3 Baso # 0.1 (0.0-0.1) K/mm3 Comprehensive Metabolic Panel 02/22/17 Range/Units 04:31 Sodium 145 (137-145) mmol/L Potassium 4.0 (3.6-5.0) mmol/L Chloride 105.0 (98-107) mmol/L Carbon Dioxide 30 (22-30) mmol/L BUN 18 (9-20) mg/dL Creatinine 1.2 (0.8-1.5) mg/dL Glucose 81 (75-100) mg/dL Calcium 8.1 L (8.4-10.2) mg/dL
[2017-02-22] MEDS: LEVAQUIN PO SCH (22:17)
[2017-02-22] MEDS: MILK OF MAGNESIA PO PRN (23:52)
[2017-02-23 04:59] LABS: Basophils % (Auto) 1.3 % (0.0-1.8); Eosinophils % (Auto) 1.7 % (0.0-4.3); Hematocrit 43.8 % (35.5-45.6); Mean Corpuscular HGB Conc 32 % (32-34); Mean Corpuscular Hemoglobin 28 pg (28-32); Mean Corpuscular Volume 88 fl (84-94); Platelet Count 117 K/mm3 (140-440); Red Blood Count 4.97 M/mm3 (3.65-5.03); Red Cell Distribution Width 15.3 % (13.2-15.2); White Blood Count 5.1 K/mm3 (4.5-11.0)
[2017-02-23 05:44] LABS: Anion Gap 16 mmol/L; Blood Urea Nitrogen 17 mg/dL (9-20); Calcium 8.4 mg/dL (8.4-10.2); Carbon Dioxide 26 mmol/L (22-30); Glucose 76 mg/dL (75-100); Potassium 4.3 mmol/L (3.6-5.0); Sodium 142 mmol/L (137-145)
--- NOTE | 2017-02-23 09:53 | Progress Note ---
Assessment and Plan Sepsis. IV antibiotics and IV fluid hydration. Follow-up blood cultures and lactate levels. Left lower lobe pneumonia. Continued antibiotics. Speech therapy recommended Dysphagia Mechanical Soft-Ground diet. No signs of aspiration on MBS. Chronic atypical Chest pain. Cardiology following. No signs or symptoms of ACS. Cardiology feels there is no need for stress testing given atypical symptoms and previous cardiac workup. Chronic systolic heart failure. Fluid and salt restriction. Lasix 40 mg IV twice a day. Patient will discharged with lisinopril, metoprolol and Bumex 1 mg by mouth twice a day. Dilated nonischemic cardiomyopathy on LifeVest. Patient with normal coronaries 11/20/2014. LVEF 15-20% with evidence of right ventricular dysfunction Hypertension. Resume antihypertensive medications. Acute hypoxic respiratory failure. Continue supplemental oxygen, nebulizer treatments and aspiration precautions. Chronic CHF. Compensated. Resume home medications. DVT prophylaxis. Disposition. Anticipate discharge tomorrow to SNF - Patient Problems (1) GERD (gastroesophageal reflux disease) Current Visit: Yes Status: Acute Qualifiers: Esophagitis presence: E (2) Acute respiratory failure Current Visit: Yes Status: Acute Qualifiers: Respiratory failure complication: R (3) Aspiration pneumonia Current Visit: Yes Status: Acute Qualifiers: Aspiration pneumonia type: A Laterality: left Lung location: lower lobe of lung (4) Atypical chest pain Current Visit: Yes Status: Acute (5) Sepsis Current Visit: Yes Status: Acute Qualifiers: Sepsis type: S Subjective Date of service: 02/22/17 Principal diagnosis: Sepsis Interval history: No new issues overnight. Objective - Constitutional Vitals: Vital Signs - 12hr 02/22/17 02/23/17 22:00 07:24 Temperature 97.8 F Pulse Rate 114 H 120 H Respiratory 97 H Rate Blood Pressure 96/66 O2 Sat by Pulse 98 Oximetry General appearance: Present: no acute distress, well-nourished - EENT Eyes: PERRL, EOM intact ENT: hearing intact, clear oral mucosa Ears: bilateral: normal - Neck Neck: supple, normal ROM - Respiratory Respiratory effort: normal Respiratory: bilateral: CTA - Breasts Breasts: normal - Cardiovascular Rhythm: regular Heart Sounds: Present: S1 & S2. Absent: gallop, rub Extremities: pulses intact, No edema, normal color, Full ROM - Gastrointestinal General gastrointestinal: Present: soft, non-tender, non-distended, normal bowel sounds - Genitourinary Male genitourinary: normal - Integumentary Integumentary: clear, warm, dry - Musculoskeletal Musculoskeletal: 1, strength equal bilaterally - Neurologic Neurologic: moves all extremities - Psychiatric Psychiatric: memory intact, appropriate mood/affect, intact judgment & insight - Labs CBC & Chem 7: 02/23/17 04:09 02/23/17 04:09 Labs: Abnormal lab results 02/23/17 Range/Units 04:09 RDW 15.3 H (13.2-15.2) % Plt Count 117 L (140-440) K/mm3 [place] % (Auto) 11.4 H (0.0-7.3) % Lymph # 0.9 L (1.2-5.4) K/mm3
[2017-02-23] MEDS: LASIX IV SCH ×2 (10:14→22:01)
[2017-02-23] MEDS: LOVENOX SUB-Q SCH (10:14)
--- NOTE | 2017-02-23 16:50 | Progress Note ---
Assessment and Plan Chronic systolic heart failure Chronic atypical chest pain No signs or symptoms of ACS Dilated non-ischemic cardiomyopathy patient wears a lifevest as an outpatient Normal coronaries 11/20/2014 LVEF 15-20%, with evidence of RV dysfunction 10/2016 Pneumonia Thrombocytopenia Recommendations: Resume lisinopril, metoprolol and change lasix to Bumex 1 mg po bid. Fluid and salt restriction. Patient will follow-up with our office as scheduled . Subjective Date of service: 02/23/17 Principal diagnosis: Sepsis Interval history: Patient has no chest pain or shortness of breath. Objective Vital Signs Temp Pulse Resp BP Pulse Ox 02/23/17 14:07 97 02/23/17 10:00 97.7 F 105 H 18 104/76 99 02/23/17 07:24 120 H 02/22/17 22:00 97.8 F 114 H 97 H 96/66 98 02/22/17 20:43 100 - Physical Examination General: No Apparent Distress Cardiac: Positive: Reg Rate and Rhythm Neuro: Positive: Grossly Intact - Labs and Meds CBC 02/23/17 Range/Units 04:09 WBC 5.1 (4.5-11.0) K/mm3 RBC 4.97 (3.65-5.03) M/mm3 Hgb 14.0 (11.8-15.2) gm/dl Hct 43.8 (35.5-45.6) % Plt Count 117 L (140-440) K/mm3 Lymph # 0.9 L (1.2-5.4) K/mm3 [place] # 0.6 (0.0-0.8) K/mm3 Eos # 0.1 (0.0-0.4) K/mm3 Baso # 0.1 (0.0-0.1) K/mm3 Comprehensive Metabolic Panel 02/23/17 Range/Units 04:09 Sodium 142 (137-145) mmol/L Potassium 4.3 (3.6-5.0) mmol/L Chloride 104.0 (98-107) mmol/L Carbon Dioxide 26 (22-30) mmol/L BUN 17 (9-20) mg/dL Creatinine 1.0 (0.8-1.5) mg/dL Glucose 76 (75-100) mg/dL Calcium 8.4 (8.4-10.2) mg/dL
[2017-02-23] MEDS: LEVAQUIN PO SCH (22:01)
[2017-02-24 05:55] LABS: Basophils % (Auto) 1.3 % (0.0-1.8); Eosinophils % (Auto) 2.2 % (0.0-4.3); Hematocrit 42.6 % (35.5-45.6); Mean Corpuscular HGB Conc 33 % (32-34); Mean Corpuscular Hemoglobin 29 pg (28-32); Mean Corpuscular Volume 87 fl (84-94); Platelet Count 109 K/mm3 (140-440); Red Blood Count 4.89 M/mm3 (3.65-5.03); Red Cell Distribution Width 15.2 % (13.2-15.2); White Blood Count 4.3 K/mm3 (4.5-11.0)
[2017-02-24 06:03] LABS: Anion Gap 15 mmol/L; Blood Urea Nitrogen 16 mg/dL (9-20); Calcium 8.4 mg/dL (8.4-10.2); Carbon Dioxide 31 mmol/L (22-30); Chloride 101.1 mmol/L (98-107); Glucose 85 mg/dL (75-100); Potassium 3.7 mmol/L (3.6-5.0); Sodium 143 mmol/L (137-145)
[2017-02-24] MEDS: LASIX IV SCH (09:17)
[2017-02-24] MEDS: LOVENOX SUB-Q SCH (09:19)
[2017-02-24] MEDS: TOPROL XL PO SCH ×2 (09:22→15:16)
[2017-02-24] MEDS ORDERED: ZESTRIL PO SCH (10:00)
--- NOTE | 2017-02-24 12:52 | Progress Note ---
Assessment and Plan Chronic systolic heart failure Chronic atypical chest pain No signs or symptoms of ACS Dilated non-ischemic cardiomyopathy patient wears a lifevest as an outpatient Normal coronaries 11/20/2014 LVEF 15-20%, with evidence of RV dysfunction 10/2016 Pneumonia Thrombocytopenia Recommendations: Medical therapy for nonischemic cardiomyopathy. Advised fluid and salt restriction. Patient will follow-up with our office as scheduled . Subjective Date of service: 02/24/17 Principal diagnosis: Sepsis Interval history: Patient has no chest pain or shortness of breath. Objective Vital Signs Temp Pulse Pulse Resp BP Pulse Ox 02/24/17 10:00 114 H 114 H 100 02/24/17 09:07 98.2 F 109 H 20 99/72 02/23/17 22:00 100 02/23/17 21:00 98.7 F 117 H 18 117/91 100 02/23/17 14:07 97 - Physical Examination General: No Apparent Distress HEENT: Positive: PERRL Neck: Positive: trachea midline Cardiac: Positive: Reg Rate and Rhythm Lungs: Positive: Decreased Breath Sounds Neuro: Positive: Grossly Intact - Labs and Meds CBC 02/24/17 Range/Units 05:12 WBC 4.3 L (4.5-11.0) K/mm3 RBC 4.89 (3.65-5.03) M/mm3 Hgb 14.0 (11.8-15.2) gm/dl Hct 42.6 (35.5-45.6) % Plt Count 109 L (140-440) K/mm3 Lymph # 0.7 L (1.2-5.4) K/mm3 [place] # 0.5 (0.0-0.8) K/mm3 Eos # 0.1 (0.0-0.4) K/mm3 Baso # 0.1 (0.0-0.1) K/mm3 Comprehensive Metabolic Panel 02/24/17 Range/Units 05:12 Sodium 143 (137-145) mmol/L Potassium 3.7 (3.6-5.0) mmol/L Chloride 101.1 (98-107) mmol/L Carbon Dioxide 31 H (22-30) mmol/L BUN 16 (9-20) mg/dL Creatinine 1.0 (0.8-1.5) mg/dL Glucose 85 (75-100) mg/dL Calcium 8.4 (8.4-10.2) mg/dL
--- NOTE | 2017-02-24 15:11 | Discharge Summary ---
Providers - Providers Date of Admission: 02/16/17 14:44 Date of discharge: 02/24/17 Attending physician: RICH JEREZ 02/17/17 13:10 Speech Therapy Evaluation and Treat [CONS] Routine Reason For Exam: swallow eval 02/21/17 08:01 Consult to Physician [CONS] Routine Consulting Provider: NICOLE MATHEW Reason For Exam: cp Place consult to:: dr. 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 Negative straight pneumonia and subsequent sepsis; taking accordingly. Also regimen for heart failure adjust. Discharge back to [facility] in stable condition. Discharge diagnoses: Acute hypoxic respiratory failure - resolved Sepsis due to LLL PNA - completed antibiotic course Chronic systolic heart failure - on BB, ACEI, diuretic; fluid and salt restriction Dilated nonischemic cardiomyopathy on LifeVest - LVEF 15-20% with evidence of right ventricular dysfunction also Chronic atypical chest pain Hypertension Disposition: DC- TO HOME OR SELFCARE Time spent for discharge: 35 min Core Measure Documentation - Palliative Care Palliative Care/ Comfort Measures: Not Applicable - Core Measures Any of the following diagnoses?: heart failure - Heart Failure Discharge Requirements RE/ARB for LVSD if EF <40%: Yes Beta denis at discharge: Yes Exam - Physical Exam Narrative exam: Seen and examined: - Constitutional Vitals: Temp Pulse Resp BP Pulse Ox 98.2 F 114 H 20 99/72 100 02/24/17 09:07 02/24/17 10:00 02/24/17 09:07 02/24/17 09:07 02/24/17 10:00 General appearance: Present: no acute distress - Neck Neck: Present: supple. Absent: enlarged thyroid, masses or JVD - Respiratory Respiratory effort: normal Respiratory: bilateral: diminished, negative: rhonchi, wheezing - Cardiovascular Rhythm: regular Heart Sounds: Present: S1 & S2. Absent: systolic murmur - Extremities Extremities: no ischemia - Abdominal General gastrointestinal: Present: soft, non-tender, non-distended, normal bowel sounds - Neurologic Neurologic: moves all extremities Plan Activity: advance as tolerated, fall precautions Diet: low cholesterol, low salt Follow up with: PRIMARY CARE, [Primary Care Provider] - 3-5 Days NICOLE MATHEW MD [Staff Physician] - 7 Days (as already scheduled on Mar 04) Prescriptions: ARIPiprazole [Abilify TAB] 20 mg PO DAILY #30 tablet Aspirin 81 mg PO QDAY #30 tab.chew Furosemide [Lasix TAB] 40 mg PO BID #60 tablet Lisinopril [Zestril TAB] 5 mg PO QDAY #30 tablet Metoprolol Xl [Metoprolol SUCCINATE ER TAB] 25 mg PO QDAY #30 tablet
[2017-02-24 15:20] VITALS: BP 132/104
== END 2017-02-24 16:50 | disposition home or self-care (01) | DRG 871 ==
LOC: ED 10:58 → CC2 14:44
PROVIDERS: ADMIT Internal Medicine; ATTEND Internal Medicine
DX: A41.9 Sepsis, unspecified organism (principal); J69.0 Pneumonitis due to inhalation of food and vomit; J96.01 Acute respiratory failure with hypoxia; K86.1 Other chronic pancreatitis; I50.22 Chronic systolic (congestive) heart failure; I42.0 Dilated cardiomyopathy; I50.9 Heart failure, unspecified; M19.90 Unspecified osteoarthritis, unspecified site; I11.0 Hypertensive heart disease with heart failure; D69.6 Thrombocytopenia, unspecified; K21.9 Gastro-esophageal reflux disease without esophagitis; Z88.0 Allergy status to penicillin; Z90.49 Acquired absence of other specified parts of digestive tract; Z82.49 Family history of ischemic heart disease and other diseases of the circulatory system
CPT/HCPCS: 36415; 71010; 74230; 80048; 80053; 82140; 82550; 82553; 83690; 83880; 84484; 85025; 85379; 85610; 85730; 86850; 86900; 86901; 87040; 93005; 93010; 94760; 99291; G8996-GN; G8997-GN; G8998-GN; J1650; J1940; J1956; J2785; J7030; J7040

== ENCOUNTER 2017-04-29 16:35 | Inpatient (IN) | payer MEDICARE ==
[2017-04-29 17:51] LABS: Basophils % (Auto) 0.7 % (0.0-1.8); Eosinophils % (Auto) 0.6 % (0.0-4.3); Hematocrit 53.5 % (35.5-45.6); Hemoglobin 17.5 gm/dl (11.8-15.2); Mean Corpuscular HGB Conc 33 % (32-34); Mean Corpuscular Hemoglobin 28 pg (28-32); Mean Corpuscular Volume 86 fl (84-94); Platelet Count 138 K/mm3 (140-440); Red Blood Count 6.19 M/mm3 (3.65-5.03); Red Cell Distribution Width 14.4 % (13.2-15.2); White Blood Count 7.6 K/mm3 (4.5-11.0)
[2017-04-29 18:13] LABS: Anion Gap 20 mmol/L; BUN/Creatinine Ratio 24; Blood Urea Nitrogen 38 mg/dL (9-20); Calcium 9.4 mg/dL (8.4-10.2); Carbon Dioxide 35 mmol/L (22-30); Glucose 107 mg/dL (75-100); Potassium 3.4 mmol/L (3.6-5.0); Sodium 136 mmol/L (137-145)
--- NOTE | 2017-04-29 18:13 | Emergency Department Report ---
ED General Adult HPI - General Chief complaint: Dizziness Stated complaint: LOW BP/DIZZINESS Time Seen by Provider: 04/29/17 17:11 Source: patient, EMS Mode of arrival: Stretcher Limitations: No Limitations - History of Present Illness Initial comments: Patient is a 71-year-old male past medical history of congestive heart failure and AR. Presents with lightheadedness and chest pain. Patient was at his doctor's office when he started to experience some chest pain it's okay in the middle of his chest at 6 out of 10 nothing makes it better or worse. It is an achy type of pain doesn't radiate he also has some shortness of breath. Patient recently had an increased dose of his Lasix and he has been very lightheaded. He was hypotensive at his primary care doctor's office and he was told to go to the emergency department. Patient denies any abdominal pain and he also takes a daily aspirin. - Related Data Previous Rx's Medication Instructions Recorded Last Taken Type ARIPiprazole [Abilify TAB] 20 mg PO DAILY #30 tablet 03/08/17 Unknown Rx Apixaban [Eliquis] 5 mg PO Q12HR #60 tablet 03/08/17 Unknown Rx Aspirin 81 mg PO QDAY #30 tab.chew 03/08/17 Unknown Rx Furosemide [Lasix TAB] 40 mg PO BID #60 tablet 03/08/17 Unknown Rx Metoprolol Xl [Metoprolol 25 mg PO QDAY #30 tablet 03/08/17 Unknown Rx SUCCINATE ER TAB] oxyCODONE /ACETAMINOPHEN [Percocet 1 tab PO Q6H PRN #12 tablet 03/08/17 Unknown Rx 5/325 mg] Allergies Allergy/AdvReac Type Severity Reaction Status Date / Time Penicillins Allergy Severe Hives Verified 11/21/14 10:42 ED Review of Systems ROS: Stated complaint: LOW BP/DIZZINESS Other details as noted in HPI Constitutional: denies: chills, fever Eyes: denies: eye pain, eye discharge, vision change ENT: denies: ear pain, throat pain Respiratory: denies: cough, shortness of breath, wheezing Cardiovascular: chest pain. denies: palpitations Endocrine: no symptoms reported Gastrointestinal: denies: abdominal pain, nausea, diarrhea Genitourinary: denies: urgency, dysuria Musculoskeletal: denies: back pain, joint swelling, arthralgia Skin: denies: rash, lesions Neurological: other (lightheadedness ). denies: headache, weakness, paresthesias Psychiatric: denies: anxiety, depression Hematological/Lymphatic: denies: easy bleeding, easy bruising ED Past Medical Hx - Past Medical History Hx Hypertension: Yes Hx Heart Attack/AMI: Yes (1969) Hx Congestive Heart Failure: Yes Hx Diabetes: Yes Hx GERD: Yes Hx of Cancer: Yes (prostate) Hx Arthritis: Yes Hx Psychiatric Treatment: Yes (schizophrenia) Hx Asthma: No Hx COPD: No Hx HIV: No Additional medical history: pancreatitis - Surgical History Hx Pacemaker: (External defibrillator) Hx Cholecystectomy: Yes (2010) Additional Surgical History: cardiac cath 2014. bladder surgery - Social History Smoking Status: Former Smoker Substance Use Type: None - Medications Home Medications: Home Medications Medication Instructions Recorded Confirmed Last Taken Type ARIPiprazole [Abilify TAB] 20 mg PO DAILY #30 tablet 03/08/17 Unknown Rx Apixaban [Eliquis] 5 mg PO Q12HR #60 tablet 03/08/17 Unknown Rx Aspirin 81 mg PO QDAY #30 tab.chew 03/08/17 Unknown Rx Furosemide [Lasix TAB] 40 mg PO BID #60 tablet 03/08/17 Unknown Rx Metoprolol Xl [Metoprolol 25 mg PO QDAY #30 tablet 03/08/17 Unknown Rx SUCCINATE ER TAB] oxyCODONE /ACETAMINOPHEN [Percocet 1 tab PO Q6H PRN #12 tablet 03/08/17 Unknown Rx 5/325 mg] ED Physical Exam - General Limitations: No Limitations General appearance: alert, in no apparent distress - Head Head exam: Present: atraumatic, normocephalic - Eye Eye exam: Present: normal appearance - ENT ENT exam: Present: mucous membranes moist - Neck Neck exam: Present: normal inspection - Respiratory Respiratory exam: Present: normal lung sounds bilaterally. Absent: respiratory distress - Cardiovascular Cardiovascular Exam: Present: regular rate, normal rhythm. Absent: systolic murmur, diastolic murmur, rubs, gallop - GI/Abdominal GI/Abdominal exam: Present: soft, normal bowel sounds - Rectal Rectal exam: Present: deferred - Extremities Exam Extremities exam: Present: normal inspection - Back Exam Back exam: Present: normal inspection - Neurological Exam Neurological exam: Present: alert, oriented X3 - Psychiatric Psychiatric exam: Present: normal affect, normal mood - Skin Skin exam: Present: warm, dry, intact, normal color. Absent: rash ED Course Vital Signs 04/29/17 17:13 Temperature 97.5 F L Pulse Rate 87 Respiratory 18 Rate Blood Pressure 105/78 O2 Sat by Pulse 96 Oximetry ED Medical Decision Making - Lab Data Result diagrams: 04/29/17 17:31 04/29/17 17:31 Lab Results 04/29/17 04/29/17 04/29/17 Range/Units 17:31 17:31 17:31 WBC 7.6 (4.5-11.0) K/mm3 RBC 6.19 H (3.65-5.03) M/mm3 Hgb 17.5 H (11.8-15.2) gm/dl Hct 53.5 H (35.5-45.6) % MCV 86 (84-94) fl MCH 28 (28-32) pg MCHC 33 (32-34) % RDW 14.4 (13.2-15.2) % Plt Count 138 L (140-440) K/mm3 Lymph % (Auto) 15.4 (13.4-35.0) % Placer % (Auto) 9.7 H (0.0-7.3) % Eos % (Auto) 0.6 (0.0-4.3) % Baso % (Auto) 0.7 (0.0-1.8) % Lymph # 1.2 (1.2-5.4) K/mm3 Placer # 0.7 (0.0-0.8) K/mm3 Eos # 0.0 (0.0-0.4) K/mm3 Baso # 0.1 (0.0-0.1) K/mm3 Seg Neutrophils % 73.6 H (40.0-70.0) % Seg Neutrophils # 5.6 (1.8-7.7) K/mm3 D-Dimer (0-234) ng/mlDDU Sodium 136 L (137-145) mmol/L Potassium 3.4 L (3.6-5.0) mmol/L Chloride 84.0 L (98-107) mmol/L Carbon Dioxide 35 H (22-30) mmol/L Anion Gap 20 mmol/L BUN 38 H (9-20) mg/dL Creatinine 1.6 H (0.8-1.5) mg/dL Estimated GFR 52 ml/min BUN/Creatinine Ratio 24 % Glucose 107 H (75-100) mg/dL Calcium 9.4 (8.4-10.2) mg/dL Troponin T < 0.010 (0.00-0.029) ng/mL NT-Pro-B Natriuret Pep 5893 H (0-900) pg/mL 04/29/17 Range/Units 20:29 WBC (4.5-11.0) K/mm3 RBC (3.65-5.03) M/mm3 Hgb (11.8-15.2) gm/dl Hct (35.5-45.6) % MCV (84-94) fl MCH (28-32) pg MCHC (32-34) % RDW (13.2-15.2) % Plt Count (140-440) K/mm3 Lymph % (Auto) (13.4-35.0) % Placer % (Auto) (0.0-7.3) % Eos % (Auto) (0.0-4.3) % Baso % (Auto) (0.0-1.8) % Lymph # (1.2-5.4) K/mm3 Placer # (0.0-0.8) K/mm3 Eos # (0.0-0.4) K/mm3 Baso # (0.0-0.1) K/mm3 Seg Neutrophils % (40.0-70.0) % Seg Neutrophils # (1.8-7.7) K/mm3 D-Dimer 161.75 (0-234) ng/mlDDU Sodium (137-145) mmol/L Potassium (3.6-5.0) mmol/L Chloride (98-107) mmol/L Carbon Dioxide (22-30) mmol/L Anion Gap mmol/L BUN (9-20) mg/dL Creatinine (0.8-1.5) mg/dL Estimated GFR ml/min BUN/Creatinine Ratio % Glucose (75-100) mg/dL Calcium (8.4-10.2) mg/dL Troponin T (0.00-0.029) ng/mL NT-Pro-B Natriuret Pep (0-900) pg/mL - EKG Data -: EKG Interpreted by Me - EKG Data 04/29/17 23:50 EKG shows normal sinus rhythm T wave inversions and the lateral and septal leads and left atrial enlargement and left axis deviation 04/29/17 23:54 - Radiology Data Radiology results: image reviewed Chest x-ray: Shows moderate cardiomegaly - Medical Decision Making Chief medical diagnosis: Non-STEMI Differential medical diagnosis: Dehydration, pulmonary embolism, costochondritis I will get CBC, CMP, d-dimer, chest x-ray, troponin, baby aspirin Patient is high risk for ACS he will be admitted to the hospitalist service. Discussed plan with patient and he agrees with plan. Critical care attestation.: If time is entered above; I have spent that time in minutes in the direct care of this critically ill patient, excluding procedure time. ED Disposition Clinical Impression: Acute coronary syndrome, Light headedness, Dehydration Chest pain Qualifiers: Chest pain type: unspecified Qualified Code(s): R07.9 - Chest pain, unspecified Disposition: DC-09 OP ADMIT IP TO THIS HOSP Is pt being admited?: Yes Does the pt Need Aspirin: No Condition: Stable Instructions: Chest Pain (ED) Referrals: PRIMARY CARE, [Primary Care Provider] - 3-5 Days
[2017-04-29] MEDS ORDERED: BABY ASPIRIN PO ONE (19:39)
[2017-04-30] MEDS ORDERED: DULCOLAX PR PRN (01:34)
[2017-04-30] MEDS ORDERED: ZOFRAN IV PRN (01:34)
[2017-04-30] MEDS ORDERED: PERCOCET 5/325 PO PRN (01:34)
[2017-04-30] MEDS ORDERED: TYLENOL PO PRN (01:34)
[2017-04-30] MEDS ORDERED: MILK OF MAGNESIA PO PRN (01:34)
--- NOTE | 2017-04-30 01:34 | History and Physical Report ---
History of Present Illness Date of examination: 04/29/17 Date of admission: 04/29/17 23:24 History of present illness: 71-year-old man with a history of CHF, GERD, schizophrenia [place] [facility] with complaints of chest pain. Pain is in the epigastric area which he describes a sharp pain, intermittent in nature, intensity follow 10, no radiation, he cannot identify exacerbating or relieving factors. Admits to nausea, palpitation. States that his cardiac medication was changed recently and he was given 2 diuretics, his rn appeals is concerned that he is intravascularly depleted Review Of Systems: Constitutional: no weight loss Ears, eyes, nose, mouth and throat: no nasal congestion, no nasal discharge, no sinus pressure, blurry vision, diplopia Neck: No neck pain or rigidity. Cardiovascular: no orthopnea Respiratory: No shortness of breath, cough Gastrointestinal:no abdominal pain, hematochezia Genitourinary : no dysuria, frequency , hematuria Musculoskeletal: no muscle ache Integumentary: no rash, no pruritis Neurological: no parathesias, focal weakness Endocrine: no cold or heat intolerance, no polyuria or polydipsia Hematologic/Lymphatic: no easy bruising, no easy bleeding, no gland swelling Allergic/Immunologic: no urticaria, no angioedema. PAST MEDICAL HISTORY:CHF, GERD, schizophrenia PAST SURGICAL HISTORY: Cholecystectomy, bladder surgery FAMILY HISTORY: Hypertension SOCIAL HISTORY: Denies alcohol, tobacco, drugs Medications and Allergies Allergies Allergy/AdvReac Type Severity Reaction Status Date / Time Penicillins Allergy Severe Hives Verified 11/21/14 10:42 Home Medications Medication Instructions Recorded Confirmed Last Taken Type ARIPiprazole [Abilify TAB] 20 mg PO DAILY #30 tablet 03/08/17 Unknown Rx Apixaban [Eliquis] 5 mg PO Q12HR #60 tablet 03/08/17 Unknown Rx Aspirin 81 mg PO QDAY #30 tab.chew 03/08/17 Unknown Rx Furosemide [Lasix TAB] 40 mg PO BID #60 tablet 03/08/17 Unknown Rx Metoprolol Xl [Metoprolol 25 mg PO QDAY #30 tablet 03/08/17 Unknown Rx SUCCINATE ER TAB] oxyCODONE /ACETAMINOPHEN [Percocet 1 tab PO Q6H PRN #12 tablet 03/08/17 Unknown Rx 5/325 mg] Exam - Physical Exam Narrative exam: Gen. appearance: Patient lying in bed in no acute distress HEENT: Normocephalic/atraumatic, pupils equal round reactive to light, extra alkaline movement intact, no scleral icterus, no JVD or thyromegaly or nodule, neck is supple, mucous membrane moist, no erythema or exudate Heart: S1-S2, regular rate and rhythm Lungs: Clear to auscultation bilateral breathing comfortable Abdomen: Positive bowel sounds, nontender, nondistended, no organomegaly Extremities: No edema, cyanosis, clubbing Neuro:: Oriented 3 , cranial nerves II-12 intact, speech, motor intact Skin: No rash, nodules, warm dry - Constitutional Vitals: Temp Pulse Resp BP Pulse Ox 97.3 F L 99 H 18 94/65 98 04/30/17 01:22 04/30/17 01:22 04/30/17 01:22 04/30/17 01:22 04/30/17 01:22 Results - Labs CBC & Chem 7: 04/29/17 17:31 04/29/17 17:31 - Imaging and Cardiology EKG: image reviewed Chest x-ray: image reviewed Assessment and Plan Assessment Acute renal insufficiency Chest pain, rule out ACS CHF, stable GERD Schizophrenia Plan Admit to medicine Hold diuretics, status post IV fluids, check cardiac enzymes, stress test Consult cardiology Continue peripheral outpatient medication DVT prophylaxis
[2017-04-30] MEDS ORDERED: NACL 0.45% 1000 ML 500 ML IV SCH (02:00)
[2017-04-30 02:55] LABS: Creatine Kinase MB 1.3 ng/mL (0.0-4.0)
[2017-04-30 06:32] LABS: Creatine Kinase MB 1.3 ng/mL (0.0-4.0)
[2017-04-30] MEDS ORDERED: LEXISCAN IV ONE (08:55)
[2017-04-30] MEDS ORDERED: NACL 0.9% 500 ML 0 ML ONE (09:10)
[2017-04-30] MEDS ORDERED: ARIPIPRAZOLE 20 MG PO SCH (10:00)
--- NOTE | 2017-04-30 10:13 | XRay Report ---
PORTABLE CHEST INDICATION: Shortness of breath. COMPARISON: 03/02/2017 FINDINGS: Portable, frontal chest radiograph demonstrates interval clearing of left lung base opacity/effusion. Top normal heart size. Normal mediastinal and hilar contours. EKG leads. Stable bones. CONCLUSION: No acute chest process with interval resolution of left lower lung opacity/effusion. Thank you for the opportunity to participate in this patient's care.
[2017-04-30 10:27] LABS: Anion Gap 20 mmol/L; BUN/Creatinine Ratio 33; Blood Urea Nitrogen 40 mg/dL (9-20); Calcium 8.9 mg/dL (8.4-10.2); Carbon Dioxide 33 mmol/L (22-30); Chloride 86.1 mmol/L (98-107); Glucose 98 mg/dL (75-100); Sodium 136 mmol/L (137-145)
[2017-04-30 10:29] LABS: Potassium 2.8 mmol/L (3.6-5.0)
[2017-04-30] MEDS: BABY ASPIRIN PO SCH (10:39)
[2017-04-30] MEDS: ELIQUIS PO SCH ×2 (10:39→21:19)
[2017-04-30] MEDS: ABILIFY PO SCH (10:39)
--- NOTE | 2017-04-30 11:21 | Consultation ---
History of Present Illness Consult date: 04/30/17 Consult reason: hypotension History of present illness: Patient comes in to clinic with the complaint of dizziness, fatigue, decreased appetite. His blood pressure is 78/60. He lost > 30 lbs in 3 weeks - he was started on metolazone in addition to lasix April 05. His ECG is showing no interval changes. Past History Past Medical History: anemia, arthritis, heart failure, hypertension Social history: smoking (former smoker) Family history: hypertension Medications and Allergies Allergies Allergy/AdvReac Type Severity Reaction Status Date / Time Penicillins Allergy Severe Hives Verified 11/21/14 10:42 Home Medications Medication Instructions Recorded Confirmed Last Taken Type ARIPiprazole [Abilify TAB] 20 mg PO DAILY #30 tablet 03/08/17 04/30/17 1 Day Ago Rx Apixaban [Eliquis] 5 mg PO Q12HR #60 tablet 03/08/17 04/30/17 1 Day Ago Rx Aspirin 81 mg PO QDAY #30 tab.chew 03/08/17 04/30/17 1 Day Ago Rx Furosemide [Lasix TAB] 40 mg PO BID #60 tablet 03/08/17 04/30/17 1 Day Ago Rx Metoprolol Xl [Metoprolol 25 mg PO QDAY #30 tablet 03/08/17 04/30/17 1 Day Ago Rx SUCCINATE ER TAB] Active Meds: Active Medications Acetaminophen (Tylenol) 650 mg PO Q4H PRN PRN Reason: Pain MILD(1-3)/Fever >100.5/MILLER Apixaban (Eliquis) 5 mg PO Q12HR OLGA PRN Reason: Protocol Last Admin: 04/30/17 10:39 Dose: 5 mg Aripiprazole (Abilify) 20 mg PO QDAY [facility] Last Admin: 04/30/17 10:39 Dose: 20 mg Aspirin (Baby Aspirin) 81 mg PO QDAY [facility] Last Admin: 04/30/17 10:39 Dose: 81 mg Bisacodyl (Dulcolax) 10 mg [place] QDAY PRN PRN Reason: Constipation unrelieved by MOM Sodium Chloride (Nacl 0.45% 1000 Ml) 500 mls @ 50 mls/hr IV DIRECT OLGA Stop: 04/30/17 11:59 Last Admin: 04/30/17 04:14 Dose: 50 mls/hr Magnesium Hydroxide (Milk Of Magnesia) 30 ml PO Q4H PRN PRN Reason: Constipation Ondansetron HCl (Zofran) 4 mg IV Q8H PRN PRN Reason: N/V unrelieved by Reglan Oxycodone/Acetaminophen (Percocet 5/325) 1 tab PO Q6H PRN PRN Reason: Pain, Moderate (4-6) Review of Systems All systems: negative Physical Examination Vital Signs Temp Pulse Resp BP Pulse Ox 97.5 F L 87 18 105/78 96 04/29/17 17:13 04/29/17 17:13 04/29/17 17:13 04/29/17 17:13 04/29/17 17:13 General appearance: no acute distress HEENT: Positive: PERRL Neck: Positive: neck supple Cardiac: Positive: Reg Rate and Rhythm Lungs: Positive: Normal Exam Neuro: Positive: Grossly Intact Results 04/29/17 17:31 04/30/17 09:43 Cardiac Enzymes 04/30/17 04/30/17 Range/Units 02:16 05:47 CK-MB (CK-2) 1.3 1.3 (0.0-4.0) ng/mL Comprehensive Metabolic Panel 04/30/17 Range/Units 09:43 Sodium 136 L (137-145) mmol/L Potassium 2.8 L* (3.6-5.0) mmol/L Chloride 86.1 L (98-107) mmol/L Carbon Dioxide 33 H (22-30) mmol/L BUN 40 H (9-20) mg/dL Creatinine 1.2 (0.8-1.5) mg/dL Glucose 98 (75-100) mg/dL Calcium 8.9 (8.4-10.2) mg/dL EKG interpretations - Telemetry EKG Rhythm: Sinus Rhythm Assessment and Plan 1. Chronic Systolic (congestive) Heart Failure Patient has lost 30 lbs in 3 weeks since adding metolazone 2. Cardiomyopathy, unspecified LVEF 25% Normal coronaries by [facility] 2015 Lifevest (patient is not wearing it today) 3. Hypotension secondary to intravascular volume depletion induced by metolazone and lasix 4. Acute renal failure 5. Hypokalemia Recommendations: Gentle IV hydration Replace potassium Stress test cancelled today (no indication for stress testing)
[2017-04-30] MEDS ORDERED: NACL 0.9% 500 ML 500 ML IV SCH (12:00)
--- NOTE | 2017-04-30 12:41 | Progress Note ---
Assessment and Plan Assessment and plan: Dehydration and secondary to over diuresis - Stop his diuretics for now and gentle diuresis Acute renal failure - Gentle diuresis and creatinine is corrected today Hypokalemia - Replete potassium Chronic systolic heart failure - Currently stable Cardiomyopathy - Ejection fraction of 25% - On LifeVest history of A. fib/flutter - Currently rate controlled - Continue eliquis DVT prophylaxis - On eliquis Disposition - Continue inpatient care History Interval history: Patient was seen and evaluated this morning, chest pain subsided, no shortness of breath. Hospitalist Physical - Physical exam Narrative exam: Not in cardiopulmonary distress. The patient appeared well nourished and normally developed. Vital signs as documented. Head exam is unremarkable. No scleral icterus . Neck is without jugular venous distension, thyromegaly, or carotid bruits. Lungs are clear to auscultation. Cardiac exam reveals regular rate and Rhythm. First and second heart sounds normal. No murmurs, rubs or gallops. Abdominal exam reveals normal bowel sounds, no masses, no organomegaly and no aortic enlargement. Extremities are nonedematous and both femoral and pedal pulses are normal. FILM CUTTER: Alert and oriented 3. No focal weakness. - Constitutional Vitals: Temp Pulse Resp BP Pulse Ox 98.5 F 91 H 18 94/68 100 04/30/17 07:28 04/30/17 07:28 04/30/17 10:00 04/30/17 07:28 04/30/17 11:18 General appearance: Present: no acute distress Results - Labs CBC & Chem 7: 04/29/17 17:31 04/30/17 09:43 Labs: Laboratory Last Values WBC 7.6 K/mm3 (4.5-11.0) 04/29/17 17:31 RBC 6.19 M/mm3 (3.65-5.03) H 04/29/17 17:31 Hgb 17.5 gm/dl (11.8-15.2) H 04/29/17 17:31 Hct 53.5 % (35.5-45.6) H 04/29/17 17:31 MCV 86 fl (84-94) 04/29/17 17:31 MCH 28 pg (28-32) 04/29/17 17:31 MCHC 33 % (32-34) 04/29/17 17:31 RDW 14.4 % (13.2-15.2) 04/29/17 17:31 Plt Count 138 K/mm3 (140-440) L 04/29/17 17:31 Lymph % (Auto) 15.4 % (13.4-35.0) 04/29/17 17:31 Will % (Auto) 9.7 % (0.0-7.3) H 04/29/17 17:31 Eos % (Auto) 0.6 % (0.0-4.3) 04/29/17 17:31 Baso % (Auto) 0.7 % (0.0-1.8) 04/29/17 17:31 Lymph # 1.2 K/mm3 (1.2-5.4) 04/29/17 17:31 Will # 0.7 K/mm3 (0.0-0.8) 04/29/17 17:31 Eos # 0.0 K/mm3 (0.0-0.4) 04/29/17 17:31 Baso # 0.1 K/mm3 (0.0-0.1) 04/29/17 17:31 Seg Neutrophils % 73.6 % (40.0-70.0) H 04/29/17 17:31 Seg Neutrophils # 5.6 K/mm3 (1.8-7.7) 04/29/17 17:31 D-Dimer 161.75 ng/mlDDU (0-234) 04/29/17 20:29 Sodium 136 mmol/L (137-145) L 04/30/17 09:43 Potassium 2.8 mmol/L (3.6-5.0) L* 04/30/17 09:43 Chloride 86.1 mmol/L (98-107) L 04/30/17 09:43 Carbon Dioxide 33 mmol/L (22-30) H 04/30/17 09:43 Anion Gap 20 mmol/L 04/30/17 09:43 BUN 40 mg/dL (9-20) H 04/30/17 09:43 Creatinine 1.2 mg/dL (0.8-1.5) 04/30/17 09:43 Estimated GFR > 60 ml/min 04/30/17 09:43 BUN/Creatinine Ratio 33 % 04/30/17 09:43 Glucose 98 mg/dL (75-100) 04/30/17 09:43 Calcium 8.9 mg/dL (8.4-10.2) 04/30/17 09:43 Total Creatine Kinase 84 units/L (55-170) 04/30/17 05:47 CK-MB (CK-2) 1.3 ng/mL (0.0-4.0) 04/30/17 05:47 CK-MB (CK-2) Rel Index 1.5 (0-4) 04/30/17 05:47 Troponin T < 0.010 ng/mL (0.00-0.029) 04/29/17 17:31 NT-Pro-B Natriuret Pep 5893 pg/mL (0-900) H 04/29/17 17:31 Severe hypokalemia
[2017-04-30] MEDS: K-DUR PO SCH ×2 (13:01→23:16)
[2017-05-01 05:38] LABS: Anion Gap 18 mmol/L; BUN/Creatinine Ratio 32; Blood Urea Nitrogen 29 mg/dL (9-20); Calcium 8.5 mg/dL (8.4-10.2); Carbon Dioxide 30 mmol/L (22-30); Chloride 93.5 mmol/L (98-107); Glucose 93 mg/dL (75-100); Potassium 3.3 mmol/L (3.6-5.0); Sodium 138 mmol/L (137-145)
[2017-05-01 05:39] LABS: Basophils % (Auto) 0.9 % (0.0-1.8); Eosinophils % (Auto) 1.9 % (0.0-4.3); Hematocrit 47.1 % (35.5-45.6); Mean Corpuscular HGB Conc 34 % (32-34); Mean Corpuscular Hemoglobin 29 pg (28-32); Mean Corpuscular Volume 86 fl (84-94); Platelet Count 125 K/mm3 (140-440); Red Blood Count 5.47 M/mm3 (3.65-5.03); Red Cell Distribution Width 14.7 % (13.2-15.2); White Blood Count 6.7 K/mm3 (4.5-11.0)
--- NOTE | 2017-05-01 09:11 | Progress Note ---
Assessment and Plan 1. Chronic Systolic (congestive) Heart Failure Patient has lost 30 lbs in 3 weeks since adding metolazone 2. Cardiomyopathy, unspecified LVEF 25% Normal coronaries by [facility] 2015 Lifevest (patient is not wearing it today) 3. Hypotension secondary to intravascular volume depletion induced by metolazone and lasix 4. Acute renal failure 5. Hypokalemia Recommendations: May go home on coreg 3.125 mg po bid, eliquis 5 mg po bid, lasix 40 mg po every other day. Do not resume other heart failure meds for the time being due to hypotension and acute renal failure Follow-up in 1 week with [facility], meds will be re-evaluated as outpatient depending on clinical course We will sign off Subjective Date of service: 05/01/17 Principal diagnosis: Hypotension Interval history: Patient is doing well. He denies chest pain or shortness of breath. His vital signs are stable Objective Vital Signs Temp Pulse Resp BP BP Pulse Ox 05/01/17 05:39 98.5 F 94 H 20 99/70 96 05/01/17 00:07 98.5 F 92 H 20 90/63 96 04/30/17 23:24 99 H 04/30/17 20:18 98.7 F 99 H 20 88/59 95 04/30/17 18:03 98.2 F 102 H 18 78/49 94 04/30/17 13:00 98 H 04/30/17 12:30 98.4 F 90 18 102/73 95 04/30/17 11:18 100 04/30/17 10:00 18 - Physical Examination HEENT: Positive: PERRL Neck: Positive: neck supple Cardiac: Positive: Reg Rate and Rhythm Lungs: Positive: Normal Exam Neuro: Positive: Grossly Intact - Labs and Meds CBC 05/01/17 Range/Units 04:42 WBC 6.7 (4.5-11.0) K/mm3 RBC 5.47 H (3.65-5.03) M/mm3 Hgb 16.0 H (11.8-15.2) gm/dl Hct 47.1 H D (35.5-45.6) % Plt Count 125 L (140-440) K/mm3 Lymph # 1.4 (1.2-5.4) K/mm3 [place] # 1.0 H (0.0-0.8) K/mm3 Eos # 0.1 (0.0-0.4) K/mm3 Baso # 0.1 (0.0-0.1) K/mm3 Comprehensive Metabolic Panel 04/30/17 05/01/17 Range/Units 09:43 04:42 Sodium 136 L 138 (137-145) mmol/L Potassium 2.8 L* 3.3 L (3.6-5.0) mmol/L Chloride 86.1 L 93.5 L (98-107) mmol/L Carbon Dioxide 33 H 30 (22-30) mmol/L BUN 40 H 29 H (9-20) mg/dL Creatinine 1.2 0.9 (0.8-1.5) mg/dL Glucose 98 93 (75-100) mg/dL Calcium 8.9 8.5 (8.4-10.2) mg/dL - Imaging and Cardiology EKG: image reviewed
[2017-05-01] MEDS: ELIQUIS PO SCH (09:31)
[2017-05-01] MEDS: BABY ASPIRIN PO SCH (09:32)
[2017-05-01] MEDS: ABILIFY PO SCH (09:32)
--- NOTE | 2017-05-01 10:05 | Discharge Summary ---
Providers - Providers Date of Admission: 04/29/17 23:24 Date of discharge: 05/01/17 Attending physician: MICHELLE DICKEY MD 04/30/17 01:34 Consult to Physician [CONS] Routine Consulting Provider: NICOLE ALLEN Reason For Exam: cp Place consult to:: [facility] Notified:: y Comment:: added to list Primary care physician: SHARON NEWMAN Hospitalization Condition: Stable Disposition: DC-30 STILL A PATIENT - Discharge Diagnoses (1) Chest pain Status: Acute Qualifiers: Chest pain type: unspecified Ischemic chest pain type: I Qualified Code(s ): R07.9 - Chest pain, unspecified (2) Dehydration Status: Acute (3) Light headedness Status: Acute (4) CHF (congestive heart failure) Status: Acute Qualifiers: Congestive heart failure type: combined Congestive heart failure chronicity : acute on chronic Qualified Code(s): I50.43 - Acute on chronic combined systolic (congestive) and diastolic (congestive) heart failure Core Measure Documentation - Palliative Care Palliative Care/ Comfort Measures: Not Applicable - Core Measures Any of the following diagnoses?: heart failure - Heart Failure Discharge Requirements RE/ARB for LVSD if EF <40%: No Reason for no RE/ARB: Hypotension Beta denis at discharge: Yes Exam - Physical Exam Narrative exam: Not in cardiopulmonary distress. The patient appeared well nourished and normally developed. Vital signs as documented. Head exam is unremarkable. No scleral icterus . Neck is without jugular venous distension, thyromegaly, or carotid bruits. Lungs are clear to auscultation. Cardiac exam reveals regular rate and Rhythm. First and second heart sounds normal. No murmurs, rubs or gallops. Abdominal exam reveals normal bowel sounds, no masses, no organomegaly and no aortic enlargement. Extremities are nonedematous and both femoral and pedal pulses are normal. CMA: Alert and oriented 3. No focal weakness. - Constitutional Vitals: Temp Pulse Resp BP Pulse Ox 98.5 F 94 H 20 99/70 96 05/01/17 05:39 05/01/17 05:39 05/01/17 05:39 05/01/17 05:39 05/01/17 05:39 Plan Activity: no restrictions Weight Bearing Status: Full Weight Bearing Diet: low cholesterol Follow up with: ADE CHI MD [Referring] - 3-5 Days [facility] [Provider Group] - 7 Days Prescriptions: Apixaban [Eliquis] 5 mg PO Q12HR #60 tablet Carvedilol [Coreg] 3.125 mg PO BID #60 tablet Furosemide [Lasix TAB] 40 mg PO Q48H #60 tablet Potassium Chloride 10 meq PO QDAY #30 capsule.er
[2017-05-01] MEDS: K-DUR PO SCH (11:45)
[2017-05-01 11:47] VITALS: BP 95/71
== END 2017-05-01 12:00 | disposition home health service (06) | DRG 682 ==
LOC: ED 16:35 → 4A 23:24
PROVIDERS: ADMIT Internal Medicine; ATTEND Internal Medicine
DX: N17.9 Acute kidney failure, unspecified (principal); I50.43 Acute on chronic combined systolic (congestive) and diastolic (congestive) heart failure; I42.8 Other cardiomyopathies; K21.9 Gastro-esophageal reflux disease without esophagitis; E87.6 Hypokalemia; I95.2 Hypotension due to drugs; E86.0 Dehydration; T50.1X5A Adverse effect of loop [high-ceiling] diuretics, initial encounter; T50.2X5A Adverse effect of carbonic-anhydrase inhibitors, benzothiadiazides and other diuretics, initial encounter; M19.90 Unspecified osteoarthritis, unspecified site; I11.0 Hypertensive heart disease with heart failure; E11.9 Type 2 diabetes mellitus without complications; F20.9 Schizophrenia, unspecified; I95.89 Other hypotension; I25.2 Old myocardial infarction; Z79.2 Long term (current) use of antibiotics; Z79.82 Long term (current) use of aspirin; Z79.891 Long term (current) use of opiate analgesic; Z79.899 Other long term (current) drug therapy; Z88.0 Allergy status to penicillin; Z85.46 Personal history of malignant neoplasm of prostate; Z90.49 Acquired absence of other specified parts of digestive tract; Z95.810 Presence of automatic (implantable) cardiac defibrillator; Z82.49 Family history of ischemic heart disease and other diseases of the circulatory system; Y92.9 Unspecified place or not applicable
CPT/HCPCS: 36415; 71010; 80048; 82550; 82553; 83880; 84484; 85025; 85379; 93005; 93010; J2785; J7040

== ENCOUNTER 2017-09-14 13:30 | Emergency (ER) | payer MEDICARE ==
--- NOTE | 2017-09-14 14:12 | XRay Report ---
AP CHEST: HISTORY: Shortness of breath Compared to 09/03/17. Mild cardiomegaly, mild pulmonary venous congestion and small left pleural effusion are identified. No infiltrate, mass or pneumothorax. IMPRESSION: Mild CHF.
[2017-09-14 14:20] LABS: Basophils % (Auto) 0.7 % (0.0-1.8); Eosinophils % (Auto) 0.6 % (0.0-4.3); Hematocrit 46.6 % (35.5-45.6); Hemoglobin 14.9 gm/dl (11.8-15.2); Lymphocytes # (Auto) 0.8 K/mm3 (1.2-5.4); Lymphocytes % (Auto) 12.3 % (13.4-35.0); Mean Corpuscular HGB Conc 32 % (32-34); Mean Corpuscular Hemoglobin 28 pg (28-32); Mean Corpuscular Volume 88 fl (84-94); Monocytes # (Auto) 0.6 K/mm3 (0.0-0.8); Monocytes % (Auto) 9.1 % (0.0-7.3); Platelet Count 151 K/mm3 (140-440); Red Cell Distribution Width 15.3 % (13.2-15.2)
--- NOTE | 2017-09-14 14:24 | Emergency Department Report ---
ED General Adult HPI - General Chief complaint: Dyspnea/Respdistress Stated complaint: SOB,RHONDA Time Seen by Provider: 09/14/17 14:11 Source: patient, EMS Mode of arrival: Stretcher Limitations: Physical Limitation - History of Present Illness Initial comments: Patient states discharged from the hospital week ago and feels like he is not getting better no chest pain but persistent shortness of breath, hx of systolic chf and ef 15% per old chart, no cp no calf pain, chroinic bb and anticoagulation for hx of a flutter, pt is comfortable in room here states he thinks he needs stronger meds for his chroinic chf and should have been admited longer -: Gradual, days(s) Severity scale (0 -10): 0 - Related Data Previous Rx's Medication Instructions Recorded Last Taken Type ARIPiprazole [Abilify] 20 mg PO DAILY #30 tablet 09/06/17 Unknown Rx Apixaban [Eliquis] 5 mg PO Q12HR #60 tablet 09/06/17 Unknown Rx Aspirin 81 mg PO QDAY #30 tab.chew 09/06/17 Unknown Rx Carvedilol [Coreg] 3.125 mg PO BID #60 tablet 09/06/17 Unknown Rx Furosemide [Lasix TAB] 40 mg PO DAILY #30 tablet 09/06/17 Unknown Rx Lisinopril [Zestril TAB] 2.5 mg PO QDAY #30 tablet 09/06/17 Unknown Rx Spironolactone [Aldactone] 25 mg PO DAILY #30 tablet 09/06/17 Unknown Rx Allergies Allergy/AdvReac Type Severity Reaction Status Date / Time Penicillins Allergy Severe Hives Verified 11/21/14 10:42 ED Review of Systems ROS: Stated complaint: SOB,RHONDA Other details as noted in HPI Comment: All other systems reviewed and negative Constitutional: denies: diaphoresis, fever, malaise, weakness ENT: denies: dental pain, hearing loss, epistaxis, congestion Respiratory: orthopnea, shortness of breath, SOB with exertion. denies: cough, stridor, wheezing Cardiovascular: dyspnea on exertion, orthopnea, edema. denies: chest pain, palpitations, syncope, paroxysmal nocturnal dyspnea Gastrointestinal: denies: abdominal pain, nausea, vomiting, diarrhea, constipation, hematemesis, melena, hematochezia Musculoskeletal: denies: joint swelling, arthralgia, myalgia Neurological: denies: headache, weakness, numbness, paresthesias, confusion, abnormal gait Hematological/Lymphatic: denies: easy bleeding, easy bruising ED Past Medical Hx - Past Medical History Hx Hypertension: Yes Hx Heart Attack/AMI: Yes (1969) Hx Congestive Heart Failure: Yes Hx Diabetes: Yes Hx GERD: Yes Hx Arthritis: Yes Hx Psychiatric Treatment: Yes (schizophrenia) Hx Asthma: No Hx COPD: No Hx HIV: No Additional medical history: pancreatitis - Surgical History Hx Pacemaker: (External defibrillator) Hx Cholecystectomy: Yes (2010) Additional Surgical History: cardiac cath 2014. bladder surgery. prostate surgery - Social History Smoking Status: Former Smoker - Medications Home Medications: Home Medications Medication Instructions Recorded Confirmed Last Taken Type ARIPiprazole [Abilify] 20 mg PO DAILY #30 tablet 09/06/17 Unknown Rx Apixaban [Eliquis] 5 mg PO Q12HR #60 tablet 09/06/17 Unknown Rx Aspirin 81 mg PO QDAY #30 tab.chew 09/06/17 Unknown Rx Carvedilol [Coreg] 3.125 mg PO BID #60 tablet 09/06/17 Unknown Rx Furosemide [Lasix TAB] 40 mg PO DAILY #30 tablet 09/06/17 Unknown Rx Lisinopril [Zestril TAB] 2.5 mg PO QDAY #30 tablet 09/06/17 Unknown Rx Spironolactone [Aldactone] 25 mg PO DAILY #30 tablet 09/06/17 Unknown Rx ED Physical Exam - General Limitations: Physical Limitation General appearance: alert, in no apparent distress - Head Head exam: Present: atraumatic, normocephalic - Eye Eye exam: Present: PERRL, EOMI - ENT ENT exam: Present: normal exam, normal orophraynx - Neck Neck exam: Present: normal inspection. Absent: tenderness, meningismus - Respiratory Respiratory exam: Present: rales, rhonchi, other (no respiratory distress and speaks in full sentences mild crackles at the bases). Absent: respiratory distress, stridor, accessory muscle use, decreased breath sounds, prolonged expiratory - Cardiovascular Cardiovascular Exam: Present: regular rate, normal rhythm. Absent: rubs - GI/Abdominal GI/Abdominal exam: Present: soft. Absent: tenderness, guarding, rebound, rigid , mass, bruit, pulsatile mass - Extremities Exam Extremities exam: Present: normal capillary refill, pedal edema, other (no Homans sign). Absent: joint swelling, calf tenderness - Back Exam Back exam: Present: normal inspection. Absent: CVA tenderness (L), muscle spasm , paraspinal tenderness, vertebral tenderness - Neurological Exam Neurological exam: Present: alert, oriented X3, CN II-XII intact. Absent: motor sensory deficit ED Course Vital Signs 09/14/17 09/14/17 09/14/17 13:42 13:50 14:01 Temperature 97.7 F Pulse Rate 114 H 86 103 H Respiratory 22 16 Rate Blood Pressure 142/108 Blood Pressure [Left] O2 Sat by Pulse 90 100 100 Oximetry 09/14/17 09/14/17 09/14/17 14:09 14:30 15:00 Temperature Pulse Rate 79 106 H Respiratory 22 22 27 H Rate Blood Pressure 137/112 125/96 Blood Pressure [Left] O2 Sat by Pulse 99 99 100 Oximetry 09/14/17 09/14/17 09/14/17 15:31 15:44 16:00 Temperature Pulse Rate 96 H 100 H 78 Respiratory 16 28 H 22 Rate Blood Pressure 129/102 121/91 Blood Pressure 116/93 [Left] O2 Sat by Pulse 95 98 98 Oximetry 09/14/17 09/14/17 09/14/17 16:30 17:01 17:30 Temperature Pulse Rate 81 93 H 89 Respiratory 16 26 H 13 Rate Blood Pressure 120/87 126/99 126/93 Blood Pressure [Left] O2 Sat by Pulse 98 91 Oximetry 09/14/17 09/14/17 09/14/17 18:00 18:30 19:00 Temperature Pulse Rate 76 102 H 100 H Respiratory 37 H 14 14 Rate Blood Pressure 126/93 133/106 132/111 Blood Pressure [Left] O2 Sat by Pulse 98 98 97 Oximetry ED Medical Decision Making - Lab Data Result diagrams: 09/14/17 14:01 09/14/17 14:01 - EKG Data -: EKG Interpreted by Me EKG shows normal: sinus rhythm - EKG Data When compared to previous EKG there are: no significant change Interpretation: no acute changes, unchanged when compared t (09/03/2017) - Radiology Data Radiology results: report reviewed - Medical Decision Making Patient given Lasix and nitrates with improvement in symptoms he has no exertional chest pain EKG was unchanged from previous. He does have chronic elevation of BNP BNP is less today than it was on his admission 09/03/2017, chest x-ray shows chronic changes with mild CHF but no evidence of pulmonary infiltrate or edema is appreciated at this time. Patient has equal pulses no chest pain no evidence of further emergent process would require further workup or admission is noted at this time his repeat vital signs were stable. Room air sat in the 90s and a pulse rate of 101 he was felt to be stable for outpatient follow-up. He is to see his community living instructor and his family doctor for further management of his chronic CHF and possible adjustments to his mediicines and stable at this pt for d/c. Critical care attestation.: If time is entered above; I have spent that time in minutes in the direct care of this critically ill patient, excluding procedure time. ED Disposition Clinical Impression: CHF (congestive heart failure) Disposition: DC-01 TO HOME OR SELFCARE Is pt being admited?: No Condition: Stable Additional Instructions: See your regular doctor see your heart doctor return if new or alarming symptoms or call 911 Referrals: RAJ HANKS MD [Staff Physician] - 3-5 Days Time of Disposition: 19:27
[2017-09-14] MEDS ORDERED: NITROSTAT SL ONE (14:25)
[2017-09-14] MEDS ORDERED: LASIX IV ONE (14:25)
[2017-09-14 14:35] LABS: Creatine Kinase MB 5.2 ng/mL (0.0-4.0)
[2017-09-14 14:46] LABS: BUN/Creatinine Ratio 26; Blood Urea Nitrogen 21 mg/dL (9-20); Calcium 8.8 mg/dL (8.4-10.2); Hemolysis Index 11
[2017-09-14 19:05] VITALS: BP 132/111
[2017-09-15] MEDS ORDERED: NITRO-BID 2% TP SCH (06:00)
== END 2017-09-14 20:47 | disposition home or self-care (01) ==
LOC: ED 13:30
DX: I11.0 Hypertensive heart disease with heart failure (principal); I50.9 Heart failure, unspecified; E11.9 Type 2 diabetes mellitus without complications; K21.9 Gastro-esophageal reflux disease without esophagitis; Z87.891 Personal history of nicotine dependence; Z88.0 Allergy status to penicillin
CPT/HCPCS: 36415; 71045; 80048; 82550; 82553; 83880; 84484; 85025; 93005; 93010; 96374; 99284; J1940

== ENCOUNTER 2017-09-15 18:13 | Inpatient (IN) | payer MEDICARE ==
[2017-09-15] MEDS ORDERED: LASIX 100 MG in NACL 0.9% 50 ML IV ONE (18:36)
--- NOTE | 2017-09-15 18:42 | Emergency Department Report ---
ED Shortness of Breath HPI - General Chief Complaint: Dyspnea/Respdistress Stated Complaint: RHONDA Time Seen by Provider: 09/15/17 18:26 Source: patient, EMS Mode of arrival: Stretcher Limitations: No Limitations - History of Present Illness Initial Comments: Mr. Leo has a history of atrial flutter and systolic congestive heart failure. He has shortness of breath. Mild productive cough. He has had swollen legs for "quite some time". He was evaluated in our ED yesterday. He was admitted for 3 days last week. He takes Lasix 40 mg once a day. He truly desires for the swelling in his legs to improve. EMS stated that he was 94% on room air after exertion walking down steps. His shortness of breath improved with 3 L nasal cannula. Patient states that he would appreciate home oxygen therapy. She lives with her son. Patient does not smoke tobacco. Patient with a former drinker of alcohol. 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 According to electronic medical record, ejection fraction 15-20% according to echocardiogram performed October 2016. EMS stated that heart rate has been fluctuating between 70 and 130 bpm Dora seen on last discharge summary for dc medication -: Gradual, week(s) (2) Severity: moderate Pain Scale: 0 Improves With: oxygen Worsens With: exertion Known History Of: congestive heart failure - Related Data Home Oxygen Therapy: No Previous Rx's Medication Instructions Recorded Last Taken Type ARIPiprazole [Abilify] 20 mg PO DAILY #30 tablet 09/06/17 Unknown Rx Apixaban [Eliquis] 5 mg PO Q12HR #60 tablet 09/06/17 Unknown Rx Aspirin 81 mg PO QDAY #30 tab.chew 09/06/17 Unknown Rx Carvedilol [Coreg] 3.125 mg PO BID #60 tablet 09/06/17 Unknown Rx Furosemide [Lasix TAB] 40 mg PO DAILY #30 tablet 09/06/17 Unknown Rx Lisinopril [Zestril TAB] 2.5 mg PO QDAY #30 tablet 09/06/17 Unknown Rx Spironolactone [Aldactone] 25 mg PO DAILY #30 tablet 09/06/17 Unknown Rx Allergies Allergy/AdvReac Type Severity Reaction Status Date / Time Penicillins Allergy Severe Hives Verified 11/21/14 10:42 ED Review of Systems ROS: Stated complaint: RHONDA Other details as noted in HPI Comment: All other systems reviewed and negative Constitutional: denies: chills ENT: denies: ear pain Respiratory: cough Cardiovascular: denies: chest pain Gastrointestinal: denies: abdominal pain, nausea, vomiting ED Past Medical Hx - Past Medical History Previous Medical History?: Yes Hx Hypertension: Yes Hx Heart Attack/AMI: Yes (1969) Hx Congestive Heart Failure: Yes Hx Diabetes: Yes Hx GERD: Yes Hx Arthritis: Yes Hx Psychiatric Treatment: Yes (schizophrenia) Hx Asthma: No Hx COPD: No Hx HIV: No Additional medical history: pancreatitis - Surgical History Past Surgical History?: Yes Hx Pacemaker: (External defibrillator) Hx Cholecystectomy: Yes (2010) Additional Surgical History: cardiac cath 2014. bladder surgery. prostate surgery - Social History Smoking Status: Former Smoker Substance Use Type: None - Medications Home Medications: Home Medications Medication Instructions Recorded Confirmed Last Taken Type ARIPiprazole [Abilify] 20 mg PO DAILY #30 tablet 09/06/17 Unknown Rx Apixaban [Eliquis] 5 mg PO Q12HR #60 tablet 09/06/17 Unknown Rx Aspirin 81 mg PO QDAY #30 tab.chew 09/06/17 Unknown Rx Carvedilol [Coreg] 3.125 mg PO BID #60 tablet 09/06/17 Unknown Rx Furosemide [Lasix TAB] 40 mg PO DAILY #30 tablet 09/06/17 Unknown Rx Lisinopril [Zestril TAB] 2.5 mg PO QDAY #30 tablet 09/06/17 Unknown Rx Spironolactone [Aldactone] 25 mg PO DAILY #30 tablet 09/06/17 Unknown Rx ED Physical Exam - General Limitations: No Limitations General appearance: alert, in no apparent distress, other (notable shortness of breath when transferring from EMS stretcher to a hospital bed ) - Head Head exam: Present: atraumatic, normocephalic - Eye Eye exam: Present: normal appearance - ENT ENT exam: Present: normal orophraynx, mucous membranes moist, other (poor dentition) - Neck Neck exam: Present: normal inspection, other (positive JVD at 90). Absent: meningismus - Respiratory Respiratory exam: Present: normal lung sounds bilaterally. Absent: respiratory distress, wheezes, rales, rhonchi - Cardiovascular Cardiovascular Exam: Present: regular rate, normal rhythm, normal heart sounds. Absent: irregular rhythm, systolic murmur, diastolic murmur, rubs, gallop - GI/Abdominal GI/Abdominal exam: Present: soft, distended (mild distention), normal bowel sounds, other. Absent: tenderness, guarding - Rectal Rectal exam: Present: deferred - Extremities Exam Extremities exam: Present: pedal edema, other (3+ pitting edema from ankle to mid thigh) - Back Exam Back exam: Present: normal inspection - Neurological Exam Neurological exam: Present: alert, oriented X3 - Psychiatric Psychiatric exam: Present: normal affect, normal mood - Skin Skin exam: Present: warm, dry, intact, normal color. Absent: rash ED Course Vital Signs 09/15/17 09/15/17 18:25 19:17 Temperature 97.9 F Pulse Rate 130 H Respiratory 31 H 31 H Rate Blood Pressure 134/103 [Right] O2 Sat by Pulse 96 96 Oximetry ED Medical Decision Making - Lab Data Result diagrams: 09/15/17 18:42 09/15/17 18:42 - EKG Data 09/15/17 18:53 EKG obtained at 1846 Atrial fibrillation with rapid ventricular rate versus atrial flutter ventricular rate 120 bpm left axis deviation no ST elevation + T-wave inversions in lateral leads prolonged QT - Medical Decision Making Mr. Mosqueda will be admitted to hospitalist service for acute systolic congestive heart failure. Atrial flutter rapid ventricular rate address with IV metoprolol and oral carvedilol. Repeat heart rate 101. Patient oxygen saturation 3 L nasal cannula 99%. Critical care attestation.: If time is entered above; I have spent that time in minutes in the direct care of this critically ill patient, excluding procedure time. ED Disposition Clinical Impression: Acute systolic (congestive) heart failure, Atrial flutter with rapid ventricular response Disposition: OP ADMIT IP TO THIS HOSP Is pt being admited?: Yes Does the pt Need Aspirin: No Condition: Stable Time of Disposition: 21:43
[2017-09-15 19:00] LABS: Basophils % (Auto) 0.6 % (0.0-1.8); Eosinophils % (Auto) 0.4 % (0.0-4.3); Lymphocytes # (Auto) 0.8 K/mm3 (1.2-5.4); Lymphocytes % (Auto) 11.5 % (13.4-35.0); Mean Corpuscular HGB Conc 31 % (32-34); Mean Corpuscular Hemoglobin 28 pg (28-32); Mean Corpuscular Volume 91 fl (84-94); Monocytes # (Auto) 0.8 K/mm3 (0.0-0.8); Monocytes % (Auto) 11.2 % (0.0-7.3); Platelet Count 128 K/mm3 (140-440); Red Cell Distribution Width 16.4 % (13.2-15.2)
[2017-09-15] MEDS ORDERED: LASIX IV ONE (19:00)
[2017-09-15 19:05] LABS: Hematocrit 50.9 % (35.5-45.6); Hemoglobin 15.9 gm/dl (11.8-15.2)
[2017-09-15 19:18] LABS: BUN/Creatinine Ratio 26; Blood Urea Nitrogen 23 mg/dL (9-20); Calcium 9.2 mg/dL (8.4-10.2); Hemolysis Index 24
[2017-09-15] MEDS ORDERED: COREG PO ONE (19:48)
[2017-09-15] MEDS ORDERED: LOPRESSOR IV ONE (19:49)
--- NOTE | 2017-09-15 21:38 | XRay Report ---
FINAL REPORT EXAM: XR CHEST 1V AP HISTORY: Shortness of breath TECHNIQUE: Frontal chest x-ray Comparison: 09/03/2017, 07/16/2017 FINDINGS: Enlarged cardiac silhouette. Left hemidiaphragm is silhouetted. There is blunting of the left costophrenic sulcus. Aorta is tortuous. Right hilum is prominent. Right lung is clear with the exception of the medial right lung base showing ill-defined opacity. There is underlying pulmonary emphysema. IMPRESSION: Enlarged cardiac silhouette may represent cardiomegaly versus pericardial effusion. The current left basal consolidation and left pleural effusion. Silhouetted left hemidiaphragm. Underlying emphysema. Prominent right hilum. Recommend follow-up to resolution.
--- NOTE | 2017-09-15 22:00 | History and Physical Report ---
History of Present Illness Date of examination: 09/15/17 History of present illness: 71-year-old man with a history of CHF, GERD, schizophrenia, atrial flutter comes yo the emergency room with complaints of shortness of, PND, orthopnea, dyspnea and exertion and lower extremity edema Review Of Systems: Constitutional: no weight loss Ears, eyes, nose, mouth and throat: no nasal congestion, no nasal discharge, no sinus pressure, blurry vision, diplopia Neck: No neck pain or rigidity. Cardiovascular: no chest pain Respiratory: No cough Gastrointestinal:no abdominal pain, hematochezia Genitourinary : no dysuria, frequency , hematuria Musculoskeletal: no muscle ache Integumentary: no rash, no pruritis Neurological: no parathesias, focal weakness Endocrine: no cold or heat intolerance, no polyuria or polydipsia Hematologic/Lymphatic: no easy bruising, no easy bleeding, no gland swelling Allergic/Immunologic: no urticaria, no angioedema. PAST MEDICAL HISTORY:CHF, GERD, schizophrenia, atrial flutter PAST SURGICAL HISTORY: Cholecystectomy, bladder surgery FAMILY HISTORY: Hypertension SOCIAL HISTORY: Denies alcohol, tobacco, drugs Medications and Allergies Allergies Allergy/AdvReac Type Severity Reaction Status Date / Time Penicillins Allergy Severe Hives Verified 11/21/14 10:42 Home Medications Medication Instructions Recorded Confirmed Last Taken Type ARIPiprazole [Abilify] 20 mg PO DAILY #30 tablet 09/06/17 Unknown Rx Apixaban [Eliquis] 5 mg PO Q12HR #60 tablet 09/06/17 Unknown Rx Aspirin 81 mg PO QDAY #30 tab.chew 09/06/17 Unknown Rx Carvedilol [Coreg] 3.125 mg PO BID #60 tablet 09/06/17 Unknown Rx Furosemide [Lasix TAB] 40 mg PO DAILY #30 tablet 09/06/17 Unknown Rx Lisinopril [Zestril TAB] 2.5 mg PO QDAY #30 tablet 09/06/17 Unknown Rx Spironolactone [Aldactone] 25 mg PO DAILY #30 tablet 09/06/17 Unknown Rx Exam - Constitutional Vitals: Temp Pulse Resp BP Pulse Ox 97.9 F 130 H 31 H 134/103 96 09/15/17 18:25 09/15/17 18:25 09/15/17 19:17 09/15/17 18:25 09/15/17 19:17 Results - Labs CBC & Chem 7: 09/15/17 18:42 09/15/17 18:42 Labs: Abnormal lab results 09/15/17 09/15/17 Range/Units 18:42 18:42 RBC 5.60 H (3.65-5.03) M/mm3 Hgb 15.9 H (11.8-15.2) gm/dl Hct 50.9 H (35.5-45.6) % MCHC 31 L (32-34) % RDW 16.4 H (13.2-15.2) % Plt Count 128 L (140-440) K/mm3 Lymph % (Auto) 11.5 L (13.4-35.0) % [place] % (Auto) 11.2 H (0.0-7.3) % Lymph # 0.8 L (1.2-5.4) K/mm3 Seg Neutrophils % 76.3 H (40.0-70.0) % BUN 23 H (9-20) mg/dL Glucose 102 H (75-100) mg/dL NT-Pro-B Natriuret Pep 46492 H (0-900) pg/mL - Imaging and Cardiology EKG: image reviewed Chest x-ray: image reviewed Assessment and Plan Assessment CHF, acute on chronic Community-acquired pneumonia Atrial flutter GERD Schizophrenia Thrombocytopenia Plan Admit to medicine Start IV lasix, beta denis, RE inhibitor, aspirin Ravi enzymes, monitor I's and O's, daily weights Consult cardiology, IV Levaquin, check cultures Continue outpatient medications DVT prophylaxis
[2017-09-15] MEDS ORDERED: SODIUM CHLORIDE FLUSH SYRINGE 10 ML IV PRN (22:02)
[2017-09-15] MEDS ORDERED: ZOFRAN IV PRN (22:02)
[2017-09-15] MEDS ORDERED: TYLENOL PO PRN (22:02)
[2017-09-15 22:34] LABS: Creatine Kinase MB 4.5 ng/mL (0.0-4.0)
[2017-09-16] MEDS ORDERED: LASIX IV ONE (00:09)
[2017-09-16] MEDS ORDERED: LOPRESSOR IV ONE (00:10)
[2017-09-16] MEDS ORDERED: LEVAQUIN 750MG/150ML 750 MG/150 ML BAG IV ONE (00:11)
[2017-09-16] MEDS ORDERED: COREG ONE (00:12)
[2017-09-16] MEDS: LEVAQUIN 750MG/150ML 750 MG/150 ML BAG IV SCH ×2 (00:34→09:23)
[2017-09-16] MEDS: LASIX IV SCH ×2 (05:56→18:48)
[2017-09-16 06:08] LABS: Basophils # (Auto) 0.1 K/mm3 (0.0-0.1); Eosinophils # (Auto) 0.1 K/mm3 (0.0-0.4); Eosinophils % (Auto) 0.9 % (0.0-4.3); Hemoglobin 13.6 gm/dl (11.8-15.2); Lymphocytes # (Auto) 0.8 K/mm3 (1.2-5.4); Lymphocytes % (Auto) 11.7 % (13.4-35.0); Mean Corpuscular HGB Conc 32 % (32-34); Mean Corpuscular Hemoglobin 28 pg (28-32); Mean Corpuscular Volume 89 fl (84-94); Monocytes # (Auto) 0.6 K/mm3 (0.0-0.8); Monocytes % (Auto) 9.4 % (0.0-7.3); Platelet Count 120 K/mm3 (140-440); Red Blood Count 4.84 M/mm3 (3.65-5.03); Red Cell Distribution Width 15.3 % (13.2-15.2)
[2017-09-16 06:30] LABS: Creatine Kinase MB 3.3 ng/mL (0.0-4.0)
[2017-09-16 06:33] LABS: BUN/Creatinine Ratio 21; Blood Urea Nitrogen 21 mg/dL (9-20); Calcium 8.6 mg/dL (8.4-10.2); Hemolysis Index 4
[2017-09-16] MEDS: ZESTRIL PO SCH (09:24)
[2017-09-16] MEDS: BABY ASPIRIN PO SCH (09:25)
[2017-09-16] MEDS: ABILIFY PO SCH (09:25)
[2017-09-16] MEDS: ELIQUIS PO SCH ×2 (09:25→21:03)
[2017-09-16] MEDS: COREG PO SCH ×2 (09:26→21:03)
--- NOTE | 2017-09-16 10:53 | Progress Note ---
Assessment and Plan Assessment and plan: 71-year-old man with a history of CHF, GERD, schizophrenia, atrial flutter comes yo the emergency room with complaints of shortness of, PND, orthopnea, dyspnea and exertion and lower extremity edema Acute on chronic systolic heart failure s/t to noncompliance with medical therapy. * Continue lasix, Discussed with brake repair mechanic, considering patients hx, non compliance, Hospice may be the right pursuit for this patient * Discussed with patient and awaiting discussion with family * For now aggressive diuresis and plan for SNF placement with/without hospice Non Ischemic Cardiomyopathy * Cardiac cath 11/20/14: No significant CAD Echo 10/30/16: EF 15-20%, mild-mod MR Community-acquired pneumonia Paroxysmal atrial fibrillation/Flutter currently in sinus rhythm on eliquis for oral anticoagulation GERD * PPI Schizophrenia * Continue home meds Thrombocytopenia * mONITOR HTN * STABLE DVT/GI PROPHY History Interval history: admitted for CHF exacerbation Patient seen and examined, in no acute distress but still with shortness of breath, reports improvement with oxygen Hospitalist Physical - Physical exam Narrative exam: VITAL SIGNS: Reviewed. GENERAL: The patient appeared well nourished and normally developed. Vital signs as documented. HEAD: No signs of head trauma. EYES: Pupils are equal. Extraocular motions intact. EARS: Hearing grossly intact. MOUTH: Oropharynx is normal. NECK: No adenopathy, no JVD. CHEST: Chest with diminished breath sounds bilaterally. No wheezes, rales, or rhonchi. CARDIAC: Regular rate and rhythm. S1 and S2, without murmurs, gallops, or rubs. VASCULAR: Bilateral +2 lower extremity Edema. Peripheral pulses normal and equal in all extremities. ABDOMEN: Soft, without detectable tenderness. No sign of distention. No rebound or guarding, and no masses palpated. Bowel Sounds normal. MUSCULOSKELETAL: Good range of motion of all major joints. Extremities without clubbing, cyanosis. Bilateral +2 lower extremity edema. NEUROLOGIC EXAM: Alert and oriented x 3. No focal sensory or strength deficits. Speech normal. Follows commands. PSYCHIATRIC: Mood normal. SKIN: No rash or lesions. - Constitutional Vitals: Temp Pulse Resp BP Pulse Ox 98.2 F 87 20 102/76 98 09/16/17 03:31 09/16/17 09:26 09/16/17 03:31 09/16/17 09:26 09/16/17 06:53 Results - Labs CBC & Chem 7: 09/16/17 04:55 09/16/17 04:55 Labs: Laboratory Last Values WBC 6.6 K/mm3 (4.5-11.0) 09/16/17 04:55 RBC 4.84 M/mm3 (3.65-5.03) 09/16/17 04:55 Hgb 13.6 gm/dl (11.8-15.2) 09/16/17 04:55 Hct 43.0 % (35.5-45.6) D 09/16/17 04:55 MCV 89 fl (84-94) 09/16/17 04:55 MCH 28 pg (28-32) 09/16/17 04:55 MCHC 32 % (32-34) 09/16/17 04:55 RDW 15.3 % (13.2-15.2) H 09/16/17 04:55 Plt Count 120 K/mm3 (140-440) L 09/16/17 04:55 Lymph % (Auto) 11.7 % (13.4-35.0) L 09/16/17 04:55 [place] % (Auto) 9.4 % (0.0-7.3) H 09/16/17 04:55 Eos % (Auto) 0.9 % (0.0-4.3) 09/16/17 04:55 Baso % (Auto) 1.0 % (0.0-1.8) 09/16/17 04:55 Lymph # 0.8 K/mm3 (1.2-5.4) L 09/16/17 04:55 [place] # 0.6 K/mm3 (0.0-0.8) 09/16/17 04:55 Eos # 0.1 K/mm3 (0.0-0.4) 09/16/17 04:55 Baso # 0.1 K/mm3 (0.0-0.1) 09/16/17 04:55 Seg Neutrophils % 77.0 % (40.0-70.0) H 09/16/17 04:55 Seg Neutrophils # 5.1 K/mm3 (1.8-7.7) 09/16/17 04:55 Sodium 145 mmol/L (137-145) 09/16/17 04:55 Potassium 3.7 mmol/L (3.6-5.0) 09/16/17 04:55 Chloride 101.7 mmol/L (98-107) 09/16/17 04:55 Carbon Dioxide 31 mmol/L (22-30) H 09/16/17 04:55 Anion Gap 16 mmol/L 09/16/17 04:55 BUN 21 mg/dL (9-20) H 09/16/17 04:55 Creatinine 1.0 mg/dL (0.8-1.5) 09/16/17 04:55 Estimated GFR > 60 ml/min 09/16/17 04:55 BUN/Creatinine Ratio 21 % 09/16/17 04:55 Glucose 102 mg/dL (75-100) H 09/16/17 04:55 Calcium 8.6 mg/dL (8.4-10.2) 09/16/17 04:55 Total Creatine Kinase 71 units/L (55-170) 09/16/17 04:55 CK-MB (CK-2) 3.3 ng/mL (0.0-4.0) 09/16/17 04:55 CK-MB (CK-2) Rel Index 4.6 (0-4) H 09/16/17 04:55 Troponin T < 0.010 ng/mL (0.00-0.029) 09/16/17 04:55 NT-Pro-B Natriuret Pep 45039 pg/mL (0-900) H 09/15/17 18:42 - Imaging and Cardiology Chest x-ray: image reviewed (vascualar congestion)
[2017-09-16] MEDS: SODIUM CHLORIDE FLUSH SYRINGE 10 ML IV SCH (21:04)
[2017-09-17] MEDS: LASIX IV SCH ×2 (05:04→17:03)
[2017-09-17] MEDS: ABILIFY PO SCH (10:20)
[2017-09-17] MEDS: ELIQUIS PO SCH ×2 (10:20→21:15)
[2017-09-17] MEDS: BABY ASPIRIN PO SCH (10:20)
[2017-09-17] MEDS: ZESTRIL PO SCH (10:20)
[2017-09-17] MEDS: COREG PO SCH ×2 (10:21→21:16)
[2017-09-17] MEDS: LEVAQUIN 750MG/150ML 750 MG/150 ML BAG IV SCH (10:23)
--- NOTE | 2017-09-17 11:51 | Progress Note ---
Assessment and Plan Acute on chronic systolic heart failure s/t to noncompliance with medical therapy Non Ischemic Cardiomyopathy Cardiac cath 11/20/14: No significant CAD Echo 10/30/16: EF 15-20%, mild-mod MR Paroxysmal atrial fibrillation/Flutter currently in sinus rhythm on eliquis for oral anticoagulation Medical Non-compliance Schizophrenia Subjective Date of service: 09/17/17 Interval history: Patient reports his breathing has improved. Objective Vital Signs Temp Pulse Resp BP BP Pulse Ox 09/17/17 10:21 96 H 123/86 09/17/17 10:20 96 H 123/86 09/17/17 08:54 97.5 F L 96 H 18 123/86 09/17/17 08:02 96 H 98 09/17/17 08:01 97.5 F L 98 H 18 123/86 98 09/17/17 04:30 97.9 F 83 20 96/75 97 09/17/17 04:00 101 H 09/17/17 00:09 97.9 F 98 H 20 102/70 97 09/16/17 23:59 94 H 100 09/16/17 23:58 97.9 F 94 H 20 102/70 100 09/16/17 22:37 99 09/16/17 19:25 97.3 F L 102 H 18 92/65 97 09/16/17 15:44 99 09/16/17 15:41 97.9 F 90 16 112/80 98 - Physical Examination General: No Apparent Distress HEENT: Positive: PERRL Cardiac: Positive: Reg Rate and Rhythm Lungs: Positive: Decreased Breath Sounds Neuro: Positive: Grossly Intact Extremities: Present: +1 Edema - Imaging and Cardiology EKG: image reviewed
--- NOTE | 2017-09-17 12:11 | Progress Note ---
Assessment and Plan Assessment and plan: 71-year-old man with a history of CHF, GERD, schizophrenia, atrial flutter comes yo the emergency room with complaints of shortness of, PND, orthopnea, dyspnea and exertion and lower extremity edema Acute on chronic systolic heart failure s/t to noncompliance with medical therapy. * Continue lasix, Discussed with stock drier tender, considering patients hx, non compliance, Hospice may be the right pursuit for this patient * Discussed with patient and awaiting discussion with family * Continue diuresis Non Ischemic Cardiomyopathy * Cardiac cath 11/20/14: No significant CAD Echo 10/30/16: EF 15-20%, mild-mod MR Community-acquired pneumonia Paroxysmal atrial fibrillation/Flutter currently in sinus rhythm on eliquis for oral anticoagulation GERD * PPI Schizophrenia * Continue home meds Thrombocytopenia * mONITOR HTN * STABLE DVT/GI PROPHY Discussed again with cardiology and case management. Hospice discussed with family by cardiology. Not a candidate for advance heart failure therapy case management working on SNF placement History Interval history: admitted for CHF exacerbation Patient seen and examined, in no acute distress appears with some improvement this morning. Denies any chest pain. await o2 eval Hospitalist Physical - Physical exam Narrative exam: VITAL SIGNS: Reviewed. GENERAL: The patient appeared well nourished and normally developed. Vital signs as documented. HEAD: No signs of head trauma. EYES: Pupils are equal. Extraocular motions intact. EARS: Hearing grossly intact. MOUTH: Oropharynx is normal. NECK: No adenopathy, no JVD. CHEST: Chest with diminished breath sounds bilaterally. No wheezes, rales, or rhonchi. CARDIAC: Regular rate and rhythm. S1 and S2, without murmurs, gallops, or rubs. VASCULAR: Bilateral +2 lower extremity Edema. Peripheral pulses normal and equal in all extremities. ABDOMEN: Soft, without detectable tenderness. No sign of distention. No rebound or guarding, and no masses palpated. Bowel Sounds normal. MUSCULOSKELETAL: Good range of motion of all major joints. Extremities without clubbing, cyanosis. Bilateral +2 lower extremity edema. NEUROLOGIC EXAM: Alert and oriented x 3. No focal sensory or strength deficits. Speech normal. Follows commands. PSYCHIATRIC: Mood normal. SKIN: No rash or lesions. - Constitutional Vitals: Temp Pulse Resp BP Pulse Ox 97.5 F L 96 H 18 123/86 98 09/17/17 08:54 09/17/17 10:21 09/17/17 08:54 09/17/17 10:21 09/17/17 08:02 Results - Labs CBC & Chem 7: 09/16/17 04:55 09/16/17 04:55 Labs: Laboratory Last Values WBC 6.6 K/mm3 (4.5-11.0) 09/16/17 04:55 RBC 4.84 M/mm3 (3.65-5.03) 09/16/17 04:55 Hgb 13.6 gm/dl (11.8-15.2) 09/16/17 04:55 Hct 43.0 % (35.5-45.6) D 09/16/17 04:55 MCV 89 fl (84-94) 09/16/17 04:55 MCH 28 pg (28-32) 09/16/17 04:55 MCHC 32 % (32-34) 09/16/17 04:55 RDW 15.3 % (13.2-15.2) H 09/16/17 04:55 Plt Count 120 K/mm3 (140-440) L 09/16/17 04:55 Lymph % (Auto) 11.7 % (13.4-35.0) L 09/16/17 04:55 [place] % (Auto) 9.4 % (0.0-7.3) H 09/16/17 04:55 Eos % (Auto) 0.9 % (0.0-4.3) 09/16/17 04:55 Baso % (Auto) 1.0 % (0.0-1.8) 09/16/17 04:55 Lymph # 0.8 K/mm3 (1.2-5.4) L 09/16/17 04:55 [place] # 0.6 K/mm3 (0.0-0.8) 09/16/17 04:55 Eos # 0.1 K/mm3 (0.0-0.4) 09/16/17 04:55 Baso # 0.1 K/mm3 (0.0-0.1) 09/16/17 04:55 Seg Neutrophils % 77.0 % (40.0-70.0) H 09/16/17 04:55 Seg Neutrophils # 5.1 K/mm3 (1.8-7.7) 09/16/17 04:55 Sodium 145 mmol/L (137-145) 09/16/17 04:55 Potassium 3.7 mmol/L (3.6-5.0) 09/16/17 04:55 Chloride 101.7 mmol/L (98-107) 09/16/17 04:55 Carbon Dioxide 31 mmol/L (22-30) H 09/16/17 04:55 Anion Gap 16 mmol/L 09/16/17 04:55 BUN 21 mg/dL (9-20) H 09/16/17 04:55 Creatinine 1.0 mg/dL (0.8-1.5) 09/16/17 04:55 Estimated GFR > 60 ml/min 09/16/17 04:55 BUN/Creatinine Ratio 21 % 09/16/17 04:55 Glucose 102 mg/dL (75-100) H 09/16/17 04:55 Calcium 8.6 mg/dL (8.4-10.2) 09/16/17 04:55 Total Creatine Kinase 71 units/L (55-170) 09/16/17 04:55 CK-MB (CK-2) 3.3 ng/mL (0.0-4.0) 09/16/17 04:55 CK-MB (CK-2) Rel Index 4.6 (0-4) H 09/16/17 04:55 Troponin T < 0.010 ng/mL (0.00-0.029) 09/16/17 04:55 NT-Pro-B Natriuret Pep 38528 pg/mL (0-900) H 09/15/17 18:42
[2017-09-17] MEDS: SODIUM CHLORIDE FLUSH SYRINGE 10 ML IV SCH (21:16)
[2017-09-18] MEDS: LASIX IV SCH ×2 (05:21→18:36)
[2017-09-18] MEDS: ABILIFY PO SCH (10:40)
[2017-09-18] MEDS: ELIQUIS PO SCH ×2 (10:40→21:27)
[2017-09-18] MEDS: COREG PO SCH ×2 (10:41→21:28)
[2017-09-18] MEDS: ZESTRIL PO SCH (10:42)
[2017-09-18] MEDS: BABY ASPIRIN PO SCH (10:43)
[2017-09-18] MEDS: SODIUM CHLORIDE FLUSH SYRINGE 10 ML IV SCH ×3 (10:45→21:28)
[2017-09-18] MEDS: LEVAQUIN 750MG/150ML 750 MG/150 ML BAG IV SCH (10:45)
--- NOTE | 2017-09-18 11:25 | Progress Note ---
Assessment and Plan Assessment and plan: Acute on chronic systolic heart failure s/t to noncompliance with medical therapy. * Continue lasix, Discussed with financial health counselor, considering patients hx, non compliance, Hospice may be the right pursuit for this patient * Discussed with patient and awaiting discussion with family * Continue diuresis Non Ischemic Cardiomyopathy * Cardiac cath 11/20/14: No significant CAD Echo 10/30/16: EF 15-20%, mild-mod MR Community-acquired pneumonia Paroxysmal atrial fibrillation/Flutter currently in sinus rhythm on eliquis for oral anticoagulation GERD * PPI Schizophrenia * Continue home meds Thrombocytopenia * mONITOR HTN * STABLE DVT/GI PROPHY Hospice discussed with family by cardiology. Not a candidate for advance heart failure therapy Case management working on SNF placement History Interval history: No new issues overnight. Hospitalist Physical - Constitutional Vitals: Temp Pulse Resp BP Pulse Ox 98.7 F 102 H 20 102/73 98 09/18/17 08:36 09/18/17 08:36 09/18/17 08:36 09/18/17 08:36 09/18/17 10:19 General appearance: Present: no acute distress, well-nourished - EENT Eyes: Present: PERRL, EOM intact ENT: hearing intact, clear oral mucosa, dentition normal - Neck Neck: Present: supple, normal ROM - Respiratory Respiratory effort: normal Respiratory: bilateral: CTA - Cardiovascular Rhythm: regular Heart Sounds: Present: S1 & S2. Absent: gallop, rub - Extremities Extremities: no ischemia, No edema, Full ROM - Abdominal General gastrointestinal: soft, non-tender, non-distended, normal bowel sounds - Integumentary Integumentary: Present: clear, warm, dry - Neurologic Neurologic: CNII-XII intact, moves all extremities Results - Labs CBC & Chem 7: 09/16/17 04:55 09/16/17 04:55 Labs: Laboratory Last Values WBC 6.6 K/mm3 (4.5-11.0) 09/16/17 04:55 RBC 4.84 M/mm3 (3.65-5.03) 09/16/17 04:55 Hgb 13.6 gm/dl (11.8-15.2) 09/16/17 04:55 Hct 43.0 % (35.5-45.6) D 09/16/17 04:55 MCV 89 fl (84-94) 09/16/17 04:55 MCH 28 pg (28-32) 09/16/17 04:55 MCHC 32 % (32-34) 09/16/17 04:55 RDW 15.3 % (13.2-15.2) H 09/16/17 04:55 Plt Count 120 K/mm3 (140-440) L 09/16/17 04:55 Lymph % (Auto) 11.7 % (13.4-35.0) L 09/16/17 04:55 [place] % (Auto) 9.4 % (0.0-7.3) H 09/16/17 04:55 Eos % (Auto) 0.9 % (0.0-4.3) 09/16/17 04:55 Baso % (Auto) 1.0 % (0.0-1.8) 09/16/17 04:55 Lymph # 0.8 K/mm3 (1.2-5.4) L 09/16/17 04:55 [place] # 0.6 K/mm3 (0.0-0.8) 09/16/17 04:55 Eos # 0.1 K/mm3 (0.0-0.4) 09/16/17 04:55 Baso # 0.1 K/mm3 (0.0-0.1) 09/16/17 04:55 Seg Neutrophils % 77.0 % (40.0-70.0) H 09/16/17 04:55 Seg Neutrophils # 5.1 K/mm3 (1.8-7.7) 09/16/17 04:55 Sodium 145 mmol/L (137-145) 09/16/17 04:55 Potassium 3.7 mmol/L (3.6-5.0) 09/16/17 04:55 Chloride 101.7 mmol/L (98-107) 09/16/17 04:55 Carbon Dioxide 31 mmol/L (22-30) H 09/16/17 04:55 Anion Gap 16 mmol/L 09/16/17 04:55 BUN 21 mg/dL (9-20) H 09/16/17 04:55 Creatinine 1.0 mg/dL (0.8-1.5) 09/16/17 04:55 Estimated GFR > 60 ml/min 09/16/17 04:55 BUN/Creatinine Ratio 21 % 09/16/17 04:55 Glucose 102 mg/dL (75-100) H 09/16/17 04:55 Calcium 8.6 mg/dL (8.4-10.2) 09/16/17 04:55 Total Creatine Kinase 71 units/L (55-170) 09/16/17 04:55 CK-MB (CK-2) 3.3 ng/mL (0.0-4.0) 09/16/17 04:55 CK-MB (CK-2) Rel Index 4.6 (0-4) H 09/16/17 04:55 Troponin T < 0.010 ng/mL (0.00-0.029) 09/16/17 04:55 NT-Pro-B Natriuret Pep 76796 pg/mL (0-900) H 09/15/17 18:42
[2017-09-19] MEDS: LASIX IV SCH ×2 (06:16→17:09)
[2017-09-19] MEDS: ABILIFY PO SCH (09:41)
[2017-09-19] MEDS: LEVAQUIN PO SCH (09:42)
[2017-09-19] MEDS: ELIQUIS PO SCH ×2 (09:42→22:04)
[2017-09-19] MEDS: ZESTRIL PO SCH (09:42)
[2017-09-19] MEDS: COREG PO SCH ×2 (09:42→22:03)
[2017-09-19] MEDS: BABY ASPIRIN PO SCH (09:42)
[2017-09-19] MEDS: SODIUM CHLORIDE FLUSH SYRINGE 10 ML IV SCH ×2 (09:46→22:05)
--- NOTE | 2017-09-19 10:44 | Progress Note ---
Assessment and Plan Assessment and plan: Acute on chronic systolic heart failure s/t to noncompliance with medical therapy. * Continue lasix, Dr Randhawa discussed with shake backboard notcher, considering patients hx, non compliance, Hospice may be the right pursuit for this patient * Dr Randhawa discussed with patient and awaiting discussion with family * Continue diuresis Non Ischemic Cardiomyopathy * Cardiac cath 11/20/14: No significant CAD Echo 10/30/16: EF 15-20%, mild-mod MR Community-acquired pneumonia Blood cx are negative Paroxysmal atrial fibrillation/Flutter currently in sinus rhythm on eliquis for oral anticoagulation GERD * PPI Schizophrenia * Continue home meds Thrombocytopenia * mONITOR HTN * STABLE DVT/GI PROPHY Hospice discussed with family by cardiology. Not a candidate for advance heart failure therapy Case management working on SNF placement History Interval history: No new issues overnight. Hospitalist Physical - Constitutional Vitals: Temp Pulse Resp BP Pulse Ox 98.2 F 99 H 18 101/76 99 09/19/17 05:32 09/19/17 09:42 09/19/17 05:32 09/19/17 09:42 09/19/17 05:32 General appearance: Present: no acute distress, well-nourished - EENT Eyes: Present: PERRL, EOM intact ENT: hearing intact, clear oral mucosa, dentition normal - Neck Neck: Present: supple, normal ROM - Respiratory Respiratory effort: normal Respiratory: bilateral: CTA - Cardiovascular Rhythm: regular Heart Sounds: Present: S1 & S2. Absent: gallop, rub - Extremities Extremities: no ischemia, No edema, Full ROM - Abdominal General gastrointestinal: soft, non-tender, non-distended, normal bowel sounds - Integumentary Integumentary: Present: clear, warm, dry - Neurologic Neurologic: CNII-XII intact, moves all extremities Results - Labs CBC & Chem 7: 09/16/17 04:55 09/16/17 04:55 Labs: Laboratory Last Values WBC 6.6 K/mm3 (4.5-11.0) 09/16/17 04:55 RBC 4.84 M/mm3 (3.65-5.03) 09/16/17 04:55 Hgb 13.6 gm/dl (11.8-15.2) 09/16/17 04:55 Hct 43.0 % (35.5-45.6) D 09/16/17 04:55 MCV 89 fl (84-94) 09/16/17 04:55 MCH 28 pg (28-32) 09/16/17 04:55 MCHC 32 % (32-34) 09/16/17 04:55 RDW 15.3 % (13.2-15.2) H 09/16/17 04:55 Plt Count 120 K/mm3 (140-440) L 09/16/17 04:55 Lymph % (Auto) 11.7 % (13.4-35.0) L 09/16/17 04:55 [place] % (Auto) 9.4 % (0.0-7.3) H 09/16/17 04:55 Eos % (Auto) 0.9 % (0.0-4.3) 09/16/17 04:55 Baso % (Auto) 1.0 % (0.0-1.8) 09/16/17 04:55 Lymph # 0.8 K/mm3 (1.2-5.4) L 09/16/17 04:55 [place] # 0.6 K/mm3 (0.0-0.8) 09/16/17 04:55 Eos # 0.1 K/mm3 (0.0-0.4) 09/16/17 04:55 Baso # 0.1 K/mm3 (0.0-0.1) 09/16/17 04:55 Seg Neutrophils % 77.0 % (40.0-70.0) H 09/16/17 04:55 Seg Neutrophils # 5.1 K/mm3 (1.8-7.7) 09/16/17 04:55 Sodium 145 mmol/L (137-145) 09/16/17 04:55 Potassium 3.7 mmol/L (3.6-5.0) 09/16/17 04:55 Chloride 101.7 mmol/L (98-107) 09/16/17 04:55 Carbon Dioxide 31 mmol/L (22-30) H 09/16/17 04:55 Anion Gap 16 mmol/L 09/16/17 04:55 BUN 21 mg/dL (9-20) H 09/16/17 04:55 Creatinine 1.0 mg/dL (0.8-1.5) 09/16/17 04:55 Estimated GFR > 60 ml/min 09/16/17 04:55 BUN/Creatinine Ratio 21 % 09/16/17 04:55 Glucose 102 mg/dL (75-100) H 09/16/17 04:55 Calcium 8.6 mg/dL (8.4-10.2) 09/16/17 04:55 Total Creatine Kinase 71 units/L (55-170) 09/16/17 04:55 CK-MB (CK-2) 3.3 ng/mL (0.0-4.0) 09/16/17 04:55 CK-MB (CK-2) Rel Index 4.6 (0-4) H 09/16/17 04:55 Troponin T < 0.010 ng/mL (0.00-0.029) 09/16/17 04:55 NT-Pro-B Natriuret Pep 08171 pg/mL (0-900) H 09/15/17 18:42
[2017-09-20] MEDS: LASIX IV SCH (06:10)
[2017-09-20] MEDS: BABY ASPIRIN PO SCH (09:34)
[2017-09-20] MEDS: ELIQUIS PO SCH (09:34)
[2017-09-20] MEDS: ABILIFY PO SCH (09:34)
[2017-09-20] MEDS: LEVAQUIN PO SCH (09:34)
[2017-09-20] MEDS: SODIUM CHLORIDE FLUSH SYRINGE 10 ML IV SCH (09:35)
[2017-09-20] MEDS: COREG PO SCH (09:35)
[2017-09-20] MEDS: ZESTRIL PO SCH (09:36)
--- NOTE | 2017-09-20 10:57 | Discharge Summary ---
Providers - Providers Date of Admission: 09/15/17 22:02 Date of discharge: 09/20/17 Attending physician: KARISSA SEAMAN 09/17/17 09:11 Physical Therapy Evaluation and Treat [CONS] Routine Comment: Reason For Exam: skill level for SNF 09/17/17 09:12 Occupational Therapy Evaluate and Treat [CONS] Routine Comment: Reason For Exam: skill level for snf Primary care physician: SHARON NEWMAN Hospitalization Reason for admission: sob Condition: Stable Hospital course: 71-year-old man with a history of CHF, GERD, schizophrenia, atrial flutter comes to the emergency room with complaints of shortness of, PND, orthopnea, dyspnea and exertion and lower extremity edema. Patient was admitted with diagnosis of acute on chronic systolic heart failure secondary to noncompliance with medical therapy. Patient was treated with IV Lasix and seen by cardiology in consultation. Cardiology recommended hospice placement given the patient's medical noncompliance. Family was in agreement. Case management arranged for SNF placement with hospice. Dedicated discharge time 32 minutes. Disposition: - TO HOME OR SELFCARE Time spent for discharge: 32 - Discharge Diagnoses (1) Acute systolic (congestive) heart failure Status: Acute (2) Atrial flutter with rapid ventricular response Status: Acute (3) Acute exacerbation of CHF (congestive heart failure) Status: Acute Qualifiers: (4) Acute respiratory failure Status: Acute Qualifiers: (5) Aspiration pneumonia Status: Acute Qualifiers: Laterality: left Lung location: lower lobe of lung Core Measure Documentation - Palliative Care Palliative Care/ Comfort Measures: Hospice Care - Core Measures Any of the following diagnoses?: heart failure - Heart Failure Discharge Requirements RE/ARB for LVSD if EF <40%: Yes Beta denis at discharge: Yes Exam - Constitutional Vitals: Temp Pulse Resp BP Pulse Ox 98.2 F 91 H 16 91/65 97 09/20/17 08:03 09/20/17 09:36 09/20/17 08:52 09/20/17 09:36 09/20/17 08:03 General appearance: Present: no acute distress, well-nourished - EENT Eyes: Present: PERRL ENT: hearing intact, clear oral mucosa - Neck Neck: Present: supple, normal ROM - Respiratory Respiratory effort: normal Respiratory: bilateral: CTA - Cardiovascular Heart Sounds: Present: S1 & S2. Absent: rub, click - Extremities Extremities: pulses symmetrical, No edema Peripheral Pulses: within normal limits - Abdominal General gastrointestinal: Present: soft, non-tender, non-distended, normal bowel sounds Male genitourinary: Present: normal - Integumentary Integumentary: Present: clear, warm, dry - Musculoskeletal Musculoskeletal: gait normal, strength equal bilaterally - Psychiatric Psychiatric: appropriate mood/affect, intact judgment & insight - Neurologic Neurologic: CNII-XII intact, moves all extremities Plan Activity: no restrictions Weight Bearing Status: Weight Bear as Tolerated Diet: low fat, low cholesterol, low salt Follow up with: PRIMARY CAREMD [Referring] - 3-5 Days NATALIE VELA MD [Staff Physician] - 7 Days Prescriptions: Furosemide [Lasix TAB] 40 mg PO BID #60 tablet Levofloxacin [Levaquin] 750 mg PO QDAY #5 tablet
[2017-09-20 12:19] VITALS: BP 117/84
== END 2017-09-20 19:38 | DRG 177 ==
LOC: ED 18:13 → 4A 22:02
PROVIDERS: ADMIT Internal Medicine; ATTEND Hospitalist
DX: J69.0 Pneumonitis due to inhalation of food and vomit (principal); J96.00 Acute respiratory failure, unspecified whether with hypoxia or hypercapnia; I50.23 Acute on chronic systolic (congestive) heart failure; I48.92 Unspecified atrial flutter; I42.9 Cardiomyopathy, unspecified; I11.0 Hypertensive heart disease with heart failure; K21.9 Gastro-esophageal reflux disease without esophagitis; Z88.0 Allergy status to penicillin; I25.2 Old myocardial infarction; E11.9 Type 2 diabetes mellitus without complications; F20.9 Schizophrenia, unspecified; Z95.810 Presence of automatic (implantable) cardiac defibrillator; Z90.49 Acquired absence of other specified parts of digestive tract; Z87.891 Personal history of nicotine dependence; Z79.82 Long term (current) use of aspirin; Z82.49 Family history of ischemic heart disease and other diseases of the circulatory system; D69.6 Thrombocytopenia, unspecified; I48.0 Paroxysmal atrial fibrillation; Z91.19 Patient's noncompliance with other medical treatment and regimen
CPT/HCPCS: 36415; 71045; 80048; 82550; 82553; 83880; 84484; 85025; 87040; 93005; 93010; 94760; 96374; G8978-GP; G8979-GP; G8987-GO; G8988-GO; G8989-GO; J1940; J1956

== ENCOUNTER 2021-08-01 06:50 | Emergency (ER) | payer MEDICARE ==
[2021-08-01 07:06] VITALS: BP 136/89
--- NOTE | 2021-08-01 08:25 | Emergency Department Report ---
HPI - General Chief Complaint: Dyspnea/Respdistress Time Seen by Provider: 08/01/21 07:50 - HPI HPI: 75-year-old male with history of hypertension, CAD, A. fib on Eliquis, and CHF on 4 L via NC presents due to being kicked out of his living situation. Al though the initial triage note reported something about dyspnea/shortness of breath, the patient denies having any physical symptoms or complaints. He says that there was some issue at the facility where he was staying and he was kicked out early this morning and is now homeless. He states he is on hospice but is unable to state the hospice service. Again, he has no physical symptoms or complaints. Denies SI/HI, and is requesting assistance with his living situation/placement. ED Past Medical Hx - Past Medical History Hx Hypertension: Yes Hx Heart Attack/AMI: Yes (in 1970) Hx Congestive Heart Failure: Yes Hx Diabetes: Yes Hx GERD: Yes Hx Arthritis: Yes Hx Seizures: No Hx Psychiatric Treatment: Yes (schizophrenia) Hx Asthma: No Hx COPD: No Hx Tuberculosis: No Hx Dementia: No Hx HIV: No Additional medical history: pancreatitis - Surgical History Hx Pacemaker: (External defibrillator) Hx Internal Defibrillator: Yes (external defibrillator) Hx Cholecystectomy: Yes Additional Surgical History: cardiac cath 2015. bladder surgery. prostate surgery - Social History Smoking Status: Former Smoker - Medications Home Medications: Home Medications Medication Instructions Recorded Confirmed Last Taken Type ARIPiprazole [Abilify] 20 mg PO DAILY #30 tablet 09/06/17 09/19/17 Unknown Rx Apixaban [Eliquis] 5 mg PO Q12HR #60 tablet 09/06/17 09/19/17 Unknown Rx Aspirin 81 mg PO QDAY #30 tab.chew 09/06/17 09/19/17 Unknown Rx Spironolactone [Aldactone] 25 mg PO DAILY #30 tablet 09/06/17 09/19/17 Unknown Rx carvediloL [Coreg] 3.125 mg PO BID #60 tablet 09/06/17 09/19/17 Unknown Rx lisinopriL [Zestril TAB] 2.5 mg PO QDAY #30 tablet 09/06/17 09/19/17 Unknown Rx Aspirin [Aspirin BABY CHEW TAB] 81 mg PO QDAY tab.chew 09/20/17 Unknown Rx Furosemide [Lasix TAB] 40 mg PO BID #60 tablet 09/20/17 Unknown Rx levoFLOXacin [Levaquin] 750 mg PO QDAY #5 tablet 09/20/17 Unknown Rx ED Review of Systems ROS: Stated complaint: RHONDA Other details as noted in HPI Comment: All other systems reviewed and negative Constitutional: denies: chills, fever Eyes: denies: eye pain, vision change ENT: denies: throat pain, congestion Respiratory: denies: cough, shortness of breath Cardiovascular: denies: chest pain, palpitations Gastrointestinal: denies: abdominal pain, nausea, vomiting Genitourinary: denies: dysuria, frequency Musculoskeletal: denies: back pain, arthralgia Skin: denies: rash, lesions Neurological: denies: headache, weakness, numbness Psychiatric: denies: auditory hallucinations, visual hallucinations, homicidal thoughts, suicidal thoughts Physical Exam - Physical Exam Vital Signs: Vital Signs 08/01/21 07:03 Temperature 98.6 F Pulse Rate 89 Respiratory 18 Rate Blood Pressure 136/89 [Left] O2 Sat by Pulse 98 Oximetry Physical Exam: GENERAL: Well developed and well nourished. No acute distress HEAD: Normocephalic. No obvious signs of trauma. ENT: Moist mucous membranes. EYES: Extraocular movements are intact. Pupils are equal round and reactive to light bilaterally NECK: Supple. Full ROM is intact. Trachea is midline. LUNGS: Slightly tachypneic but not in respiratory distress. Equal chest rise b ilaterally. Clear to auscultation bilaterally. CARDIOVASCULAR: Regular rate and rhythm. No murmurs or rubs. VASCULAR: Cap refill < 2 seconds. 2+ pitting edema of the bilateral lower extremities ABDOMEN: Abdomen is slightly distended but soft. there is no significant tenderness, guarding or rebound. SKIN: Skin is warm and dry NEURO: Patient is awake, alert, and oriented. remote advisor II-XII grossly intact. No focal deficits. Normal motor and sensory exam throughout. Normal speech. MUSCULOSKELETAL: No obvious deformities. No significant tenderness. Normal ROM throughout. BACK/SPINE: No midline tenderness or step-offs of the C/T/L spine. No costovertebral angle tenderness. ED Course Vital Signs 08/01/21 07:03 Temperature 98.6 F Pulse Rate 89 Respiratory 18 Rate Blood Pressure 136/89 [Left] O2 Sat by Pulse 98 Oximetry ED Medical Decision Making - Medical Decision Making 75-year-old male with complex medical history including A. fib and CHF on supplemental oxygen presents not for any medical complaint but because he got kicked out of his living situation. Patient also states he is on hospice. He does not have his oxygen with him. He is afebrile and with normal vital signs. I checked his oxygen saturation on room air and it was 97%. Again, the patient denies any physical or psychiatric symptoms or complaints of any kind. There are no significant abnormalities on his physical examination. Therefore I have placed a consult to case management to assist with placement. I have asked the nurse to give the patient supplemental oxygen at his home dose while awaiting case management consult. No further medical work-up is warranted at this time At 10:50 AM, the patient's daughter, Bobbi Calles arrived and provides further history. She states that the patient is in fact on home hospice and he lives with her and this morning he accidentally wandered off from her home which she discovered when she returned from an errand. He has a history of dementia but has never done this in the past. He will be discharged to her care and she will take him home. Critical care attestation.: If time is entered above; I have spent that time in minutes in the direct care of this critically ill patient, excluding procedure time. ED Disposition Clinical Impression: Dementia Disposition: 01 HOME / SELF CARE / HOMELESS Is pt being admited?: No Condition: Stable Instructions: Dementia Caregiver Guide Referrals: PRIMARY CAREMD [Primary Care Provider] - 3-5 Days
== END 2021-08-01 11:00 | disposition home or self-care (01) ==
LOC: ED 06:50
DX: F03.90 Unspecified dementia, unspecified severity, without behavioral disturbance, psychotic disturbance, mood disturbance, and anxiety (principal); Z87.891 Personal history of nicotine dependence; I10 Essential (primary) hypertension; E11.9 Type 2 diabetes mellitus without complications
CPT/HCPCS: 99282